=== PATIENT | female | born 1935 | race Caucasian/White ===

== ENCOUNTER → 2018-09-22 08:48 | Outpatient (BNVA) | payer MEDICARE, SELFPAY | PROVIDERS: PCP Family Medicine; Referring Provider Family Medicine; Visit Provider Student in an Organized Health Care Education/Training Program | DX: Z47.1 Aftercare following joint replacement surgery (principal); Z96.651 Presence of right artificial knee joint; Z96.652 Presence of left artificial knee joint | CPT/HCPCS: 99213 ==

== ENCOUNTER 2018-10-18 00:32 | Outpatient (CLI) | payer MEDICARE, SELFPAY ==
--- NOTE | 2018-10-18 06:56 | DI.US_ITS ---
SYMPTOM/DIAGNOSIS: NAUSEA R11.0 ABDOMINAL ULTRASOUND: 10/18 The visualized liver parenchyma is normal in appearance. There is no evidence of cholelithiasis or biliary dilatation. The pancreas appears intact as visualized. The kidneys are unremarkable with no evidence of hydronephrosis or nephrolithiasis. Abdominal aorta and IVC are of normal diameter. Note is made of question of mild splenomegaly, splenic length is about 14 cm. CONCLUSION: Question mild splenomegaly. No evidence of cholelithiasis.
--- NOTE | 2018-10-18 08:43 | DI.RAD_ITS ---
SYMPTOM/DIAGNOSIS: DYSPEPSIA, R10.13, EPIGASTRIC PAIN BARIUM SWALLOW : 10/18 Preliminary films of the chest and neck are unremarkable. Barium was ingested and showed grossly normal hypopharyngeal motility and there is normal mucosal appearance of the esophagus with a few tertiary contractions of the esophagus. There is small sliding axial hiatus hernia and minimal gastroesophageal reflux is present. The visualized portions of the stomach and duodenum are unremarkable. CONCLUSION: Tertiary contractions of the esophagus, mild reflux is also noted.
[2018-10-18] MEDS: Barium Sulfate 60% W/V 355 ML BTL PO (08:44)
== END 2018-10-18 00:52 ==
PROVIDERS: PCP Family Medicine; Visit Provider Family Medicine
DX: R11.0 Nausea (principal); R10.13 Epigastric pain
CPT/HCPCS: 74220; 76700

== ENCOUNTER 2020-01-20 01:03 | Outpatient (CLI) | payer MEDICARE, SELFPAY ==
[2020-01-24 15:21] LABS: Patient Race White; SARS-CoV-2 RNA Undetected (Undetected); SARS-CoV-2 Specimen Source Nasal
== END 2020-01-20 01:23 ==
PROVIDERS: PCP Family Medicine; Visit Provider Family Medicine
DX: Z20.828 Contact with and (suspected) exposure to other viral communicable diseases (principal); Z11.59 Encounter for screening for other viral diseases
CPT/HCPCS: U0003

== ENCOUNTER 2022-10-27 10:28 | Emergency (ER) | payer MEDICARE, SELFPAY ==
[2022-10-27] VITALS (11 sets, daily range): BP systolic 177; BP diastolic 80; PULSE 68–93; RESP 10–99; TEMP 36.6; O2SAT 99
--- NOTE | 2022-10-27 10:15 | DI.CT_ITS ---
Exam(s) CT HEAD WO EXAM: CT HEAD WO CLINICAL HISTORY: Fall forehead laceration left. TECHNIQUE: Imaging Protocol: Axial computed tomography images with coronal and sagittal reformatted images were created and reviewed COMPARISON: No exams were available for comparison FINDINGS: Ventricles and Extra axial spaces: Normal in size and morphology for the patient's age. Hemorrhage: Please see below under cerebral parenchyma. Cerebral parenchyma: No acute territorial infarct. There is a 3 mm focus of hyperdensity in the left cerebellum. (Series 2, image 9). Also there is a question of a curvilinear thin 4 mm area of hyper density in the left frontal lobe. (Series 2, image 31). These may represent areas of hemorrhage. There are areas of decreased attenuation in the white matter most consistent with small vessel ischem ic disease. Midline shift: None. Brainstem/Cerebellum: Normal. Calvarium: Normal. No evidence of a skull fracture. Visualized Paranasal sinuses/Mastoids: Clear. Soft Tissues: There is a soft tissue laceration and swelling overlying the left frontal bone. No rad iopaque foreign bodies are seen in the soft tissues. IMPRESSION: 1. Two foci of hyperdensity, 1 in the left cerebellum and 1 in the left frontal lobe as described abo ve. These might reflect tiny intraparenchymal hemorrhages. 2. Soft tissue laceration and swelling over the left frontal bone. No radiopaque foreign bodies are identified. 3. No evidence of a skull fracture. 4. Findings were discussed with Suzanne Ackerman at 11:50 a.m. on 10/27/2022. RADIATION DOSE DELIVERED: 662.77mGy.cm Total DLP DATA REPOSITORY: All CT scans at this facility are submitted to the National Radiology Data Registry (NRDR) Dose Index Registry (DIR) with the [employer] (ACR). RADIATION OPTIMIZATION: All CT scans at this facility use at least one of these dose optimization te chniques: automated exposure control; mA and/or kV adjustment per patient size (includes targeted exa ms where dose is matched to clinical indication); or iterative reconstruction.
--- NOTE | 2022-10-27 10:15 | DI.RAD_ITS ---
Exam(s) XR WRIST LT COMPLETE EXAM: XR WRIST LT COMPLETE CLINICAL HISTORY: Left wrist pain status post fall. TECHNIQUE: 2D digital imaging was performed of the left wrist. Three images were obtained. PA, obl ique and lateral views were obtained. COMPARISON: No exams were available for comparison FINDINGS: BONES: There is an acute fracture of the ulnar styloid process with marked displacement of the small fracture fragment. There is a comminuted intra-articular fracture of the distal radius. There is im paction of the fracture. The bones are osteopenic. JOINTS: The carpal bones are normally aligned. There are degenerative changes seen in the wrist parti cularly at the 1st carpometacarpal joint characterized by joint space narrowing and osteophytes. 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 There is soft tissue swelling of t he wrist. IMPRESSION: 1. Displaced ulnar styloid process fracture. 2. Comminuted impacted intra-articular fracture of the distal radius as described. DATA REPOSITORY: RADIATION DOSE DELIVERED:
--- NOTE | 2022-10-27 10:28 | W.ED.GENAD ---
Discharge Plan Disposition Patient Disposition: Transfer-Acute Inpatient Care Specific Acute Inpt Facility: [facility] Discharge Details Clinical Impression: Immunization, tetanus-diphtheria, History of falling, Traumatic closed displaced fracture of distal end of left radius, Fracture of ulnar styloid, Traumatic intraparenchymal hemorrhage, Normocytic anemia, Hyponatremia Primary Care Provider: Falguni Juarez ED Provider: Quirino Velasquez Home Meds and New Rx's Prescriptions: No Action Centrum Silver 0.4-300-250 mg-mcg-mcg tablet 1 tab PO DAILY PreserVision AREDS 14,320-226-200 kkfs-zk-mqlx capsule 1 cap PO BID cetirizine-pseudoephedrine [Zyrtec-D] 5-120 mg tablet extended release 12 hr 1 tab PO DAILY PRN naproxen sodium [Aleve] 220 MG tablet 2 tab PO DAILY Qty: 60 3RF Discharge Data Discharge Date/Time-TO BE ENTERED AT DEPARTURE: 10/27/22 13:49 Medical Decision Making This is an overall well-appearing normothermic and not tachycardic dsphi-tfdc-qrrgrcfk 87-year-old female with left wrist deformity concerning for fracture and head trauma concerning for intracranial hemorrhage. No neck pain nor tenderness so will defer CT cervical spine at this point time. No back tenderness so will defer cross-sectional imaging of back. No preceding chest pain to suggest PE. No shortness of breath to suggest ACS. No tongue biting to suggest seizures. Patient is neurologically intact so doubt CVA and do not feel the patient is a tPA candidate nor does she require an MRI. No fevers to suggest meningitis. Soft nontender abdomen so I am not concerned for intra-abdominal infection. No dysuria no frequency to suggest UTI. No cough to suggest pneumonia. No pain out of proportion to suggest necrotizing soft tissue infection. Will reassess following plain films and CT head. 11:[address] head patient was found to have 2 foci of hyperdensity concerning for traumatic intraparenchymal hemorrhage for which I will call the transfer center at [facility]. We will treat with 1 g of levetiracetam and 1 g of tranexamic acid. We will check basic labs and provide a 500 cc crystalloid bolus. Prior to CT results she had received 1 g of acetaminophen and 5 mg of oxycodone. We will keep patient n.p.o. She does have a left distal radius fracture and an ulnar styloid fracture. I spoke with Dr. Cantu who advised hematoma block and splinting. I completed hematoma block under real-time ultrasound guidance. We will hang patient in finger traps prior to applying splint with sugar tong splint. Normocytic anemia similar to prior. No thrombocytopenia. No leukocytosis. BMP with mild new hyponatremia. No FLOYD. Mild anion gap acidosis. Normal glucose not consistent with DKA. 1 PM Repeat secondary survey with no additional injuries. We will send patient via basic crew to [facility] as a trauma alert. Tetanus updated in the ED. Transferred via a basic crew to expedite transfer. HPI General Date/Time Provider Initiated Documentation: 10/27/22 10:35. HPI Narrative: This is a kohik-perc-czjtdvun 87-year-old female arriving via paramedics following a fall. Patient reports tripping on the sidewalk. She broke her fall with her left wrist. She sustained a laceration to her forehead. She did not lose consciousness. She does not have any neck pain. She denies any preceding fevers chest pain shortness of breath nausea vomiting. She is not anticoagulated. She was in her usual state of health earlier this morning and denies dysuria and frequency. No new recent medications. Related Data Home Medications Medication Instructions Recorded Confirmed naproxen sodium 220 mg tablet 2 tab PO DAILY #60 tabs 11/28/16 10/27/22 (Aleve) cwltntzy-jxz-kbuat acid 0.4 1 tab PO DAILY 11/29/20 10/27/22 mg-lycopene 300 mcg-lutein 250 mcg tablet (Centrum Silver) vitamins A,C,W-igqt-xkbqbm 4,296 1 cap PO BID 11/29/20 10/27/22 mcg-226 mg-90 mg capsule (PreserVision AREDS) cetirizine 5 mg-pseudoephedrine ER 1 tab PO DAILY PRN 12/02/21 10/27/22 120 mg tablet,extended release,12hr (Zyrtec-D) Previous Rx's Medication Instructions Recorded naproxen sodium 220 mg tablet 2 tab PO DAILY #60 tabs 11/28/16 (Aleve) Allergies Allergy/AdvReac Type Severity Reaction Status Date / Time environmental - pine tree AdvReac Uncoded 08/21/23 10:26 General LOUIS: 3 PFS All Active Problems (Updated 09/22/18 @ 17:31 by MARYLOU Turcios) Immunization, tetanus-diphtheria (Acute) History of falling (Acute) Traumatic closed displaced fracture of distal end of left radius (Acute) Fracture of ulnar styloid (Acute) Traumatic intraparenchymal hemorrhage (Acute) Normocytic anemia (Acute) Hyponatremia (Acute) Other hammer toe (acquired) (Acute) Nail dystrophy (Acute) Sensorineural hearing loss (SNHL) of left ear with restricted hearing of right ear (Acute) Mixed conductive and sensorineural hearing loss, unilateral, right ear with restricted hearing on the contralateral side (Acute) Sensorineural hearing loss (SNHL) of both ears (Acute) Hearing loss (Acute) Hyperlipidemia (Acute) Osteopenia (Acute) 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 Cantu Surgical History (Updated 09/22/18 @ 17:31 by MARYLOU Turcios) Extraction of cataract Family History (Updated 10/13/18 @ 10:31 by Jeffrey Almazan) Mother , 98 No problems noted. Father , 85 No problems noted. Sister No problems noted. Brother , 80 Heart disease Maternal Grandfather No problems noted. Paternal Grandfather No problems noted. Maternal Grandmother , CHILDBIRTH at age 40. No problems noted. Paternal Grandmother No problems noted. Brother Torticollis Sister Torticollis Son Hyperlipidemia Son No problems noted. Social History (Updated 11/30/20 @ 14:00 by Yuki Valdes) Smoking/Tobacco Use Status: Never Smoking risk assessment performed?: Yes Alcohol Intake: current Alcohol Intake frequency: holidays/special occasions only Drug use: Never Substance use type: does not use Caregiver/Support person: No Household members: none Housing: condominium Communication Needs: None Do you need help understanding health information?: Never Pets and animals: No Sexually active: No Do you think of yourself as: straight/heterosexual What is your relationship status?: How often do you talk on the phone with friends or family?: three or more times per week How often do you get together with friends or relatives?: three or more times per week How often do you attend roman catholic or anabaptist services?: 4 or more times per year Do you belong to any clubs or organized social groups?: no Panel score (0-1 are the most socially isolated patients): 2 Duration: decline to answer Frequency: decline to answer Yesenia/Mandaen: No preference Special yesenia needs: No Seatbelt use: always Drive intox or ride w/intox medical delivery driver: No Do you feel safe at home: Yes Do you feel safe in your relationship?: Yes Exam Narrative Exam Narrative: General: Well-appearing in no acute distress speaking in complete sentences. Head: Normocephalic, on the left side of the patient's forehead there is a stellate approximately 3 and half centimeter laceration with minor venous oozing. Eye: Extraocular eye movements intact. No conjunctival injection. No scleral icterus. Ear, nose, mouth, throat: Grossly normal inspection. Normal voice, handling secretions normally. Neck: Trachea midline. No midline cervical spinal tenderness. Cardiovascular: Well-perfused distal extremities. Regular rate and rhythm. Chest wall: No chest wall tenderness. Back: No step-offs nor deformities. No midline thoracic nor lumbar spinal tenderness. Respiratory: Nonlabored respiration. Clear lungs bilaterally. Gastrointestinal: Nondistended abdomen. Soft nontender. Musculoskeletal: Left upper extremity with at left wrist. No lacerations. Left hand warm and well perfused. 2+ left radial pulse. Sensation motor function intact in left hand across the radial, median, and ulnar nerve distributions. Skin: Normal for age and race, grossly normal temperature and turgor. No acute rash. Neurologic: Alert and appropriate, no apparent acute deficits. GCS 15. Psychiatric: Mood and manner are appropriate. Grooming and personal hygiene are appropriate. Procedures Orthopedic Splinting/Casting Injury #1: Side: left Upper Extremity Injury Location: wrist Upper Extremity Immobilizer: sugartong splint Additional Comments: After a hematoma block using 1% lidocaine without epinephrine and a Ortho-Glass sugar-tong splint was applied. Before sugar-tong splinting and after hematoma block patient was hung in traction. Given no attempt at reduction will defer repeat drain films as I do not want to hold the patient in the ED.
[2022-10-27] MEDS: Acetaminophen 500 MG TAB 1000 MG PO (10:55)
[2022-10-27] MEDS: Lidocaine/Epinephri/Tetracaine Topical Gel 3 ML TP (11:08)
[2022-10-27] MEDS: oxyCODONE 5 MG TAB PO (11:18)
[2022-10-27] MEDS: levETIRAcetam 1,000 MG in Normal Saline 100 ML 400 MG IVPB (12:23)
[2022-10-27] MEDS: Normal Saline 500 ML IV (12:23)
[2022-10-27 12:34] LABS: Abs Immature Grans 0.02 10^3/uL (0.0-0.06); Absolute Basophil Count 0.03 10^3/uL (0.0-0.2); Absolute Lymphocyte Count 4.29 10^3/uL (1.2-3.4); Absolute Monocyte Count 0.39 10^3/uL (0.1-0.8); Absolute Neutrophil Count 3.82 10^3/uL (1.2-6.7); Basophils % 0.3; Eosinophils % 1.2; HCT 30.1 % (36.0-46.0); HGB 10.2 g/dL (11.2-15.7); Immature Grans % 0.2; Lymphocytes % 49.6; MCH 27.7 pg (27.0-33.0); MCHC 33.9 % (32.0-36.0); MCV 82 fL (80-95); MPV 8.1 fL (8.0-11.0); Monocytes % 4.5; Neutrophils % 44.2; Platelet Count 163 10^3/uL (130-400); RBC 3.68 10^6/uL (3.93-5.22); RDW 13.6 % (11.7-14.6); RDW-SD 40.7 fL; WBC 8.65 10^3/uL (4.4-10.8)
--- NOTE | 2022-10-27 12:44 | DI.RAD_ITS ---
Exam(s) XR PORTABLE CHEST AP EXAM: XR PORTABLE CHEST AP CLINICAL HISTORY: History of falling TECHNIQUE: 2D digital imaging was performed of the chest. One image was obtained. An AP view was ob tained. COMPARISON: CR RF barium swallow from 10/18/2018 FINDINGS: MEDIASTINUM: Normal. HEART: Normal. PULMONARY VASCULATURE: Normal. LUNGS: Increased lung markings are seen in the right base. The lungs are otherwise clear. PLEURAL SPACE: No pleural effusion or pneumothorax. BONE:Within normal limits for the patient's age. OTHER FINDINGS:Normal. IMPRESSION: 1. Small infiltrate in the right lung base. This may represent atelectasis or pneumonia. Please cor relate clinically. 2. No other acute abnormality. DATA REPOSITORY: RADIATION DOSE DELIVERED:
[2022-10-27 12:45] LABS: Anion Gap 8.8 mmol/L (3-11); BUN 21 mg/dL (7-18); CO2 26.2 mmol/L (21.0-32.0); CREATININE 0.7 mg/dL (0.55-1.02); Calcium 9.7 mg/dL (8.5-10.1); Chloride 95 mmol/L (98-107); Estimated GFR 83.65 (mL/min/1.73m2); Glucose 102 mg/dL (74-106); Potassium 4.2 mmol/L (3.5-5.1); Sodium 130 mmol/L (136-145)
[2022-10-27] MEDS: Tranexamic Acid 1,000 MG/10 ML VIAL 1000 MG IVP (12:49)
[2022-10-27] MEDS: ceFAZolin 2 GM/50 ML BAG IVPB (12:49)
== END 2022-10-27 13:49 | disposition short-term general hospital (02) ==
PROVIDERS: Emergency Provider Emergency Medicine; PCP Family Medicine
DX: S01.81XA Laceration without foreign body of other part of head, initial encounter; S52.572A Other intraarticular fracture of lower end of left radius, initial encounter for closed fracture; S52.612A Displaced fracture of left ulna styloid process, initial encounter for closed fracture; E87.1 Hypo-osmolality and hyponatremia; D64.9 Anemia, unspecified; S06.370A Contusion, laceration, and hemorrhage of cerebellum without loss of consciousness, initial encounter; W01.0XXA Fall on same level from slipping, tripping and stumbling without subsequent striking against object, initial encounter
CPT/HCPCS: 29125; 80048; 90471; 96365; 96367; 96375; 99285; 70450; 71045; 73110; 85025; J0690; J1953

== ENCOUNTER 2022-11-05 10:14 | Outpatient (CLI) | payer MEDICARE, SELFPAY ==
--- NOTE | 2022-11-05 09:22 | DI.RAD_ITS ---
Exam(s) XR WRIST LT LIMITED EXAM: XR WRIST LT LIMITED CLINICAL HISTORY: F/U FRACTURE. TECHNIQUE: 2D digital imaging was performed of the left wrist. Two images were obtained. PA and la teral views were obtained. COMPARISON: DX XR WRIST 2 VIEWS LEFT from 10/28/2022 FINDINGS: BONES: There is again seen a mildly displaced ulnar styloid process fracture. There is a comminuted fracture of the distal left radius with intra-articular extension. The fracture is impacted. There does appear to be increased impaction of the fracture compared to the prior examination, however this may be due to patient positioning. No bony destructive lesion is seen. JOINTS: The carpal bones are normally aligned. Degenerative changes are seen in the wrist particularl y at the 1st CMC joint. SOFT TISSUE: Normal. IMPRESSION: Distal left radial and ulnar fractures as described. DATA REPOSITORY: RADIATION DOSE DELIVERED:
== END 2022-11-05 10:15 | disposition home or self-care (01) ==
LOC: DIORS 10:14
PROVIDERS: PCP Family Medicine; Referring Provider Family Medicine; Visit Provider Student in an Organized Health Care Education/Training Program
DX: S52.502A Unspecified fracture of the lower end of left radius, initial encounter for closed fracture (principal); S52.612A Displaced fracture of left ulna styloid process, initial encounter for closed fracture; W19.XXXA Unspecified fall, initial encounter
CPT/HCPCS: 29075; 99204; 99215; 73100

== ENCOUNTER → 2022-11-05 10:54 | Outpatient (CLI) | payer MEDICARE, SELFPAY ==
--- NOTE | 2022-11-05 10:30 | DI.CT_ITS ---
Exam(s) CT UPPER EXTREMITY LT WO EXAM: CT UPPER EXTREMITY LT WO CLINICAL HISTORY: FX EVALUATION, fracture ulnar styloid, S52.502A, S52.613A TECHNIQUE: Imaging Protocol: Axial computed tomography images with coronal and sagittal reformatted images were created and reviewed. CONTRAST MATERIAL: Noncontrast COMPARISON: CR XR WRIST LT LIMITED from 11/05/2022 FINDINGS: Exam is somewhat limited by motion however this mainly in the distal carpal and metacarpal region. Bones: Markedly comminuted intra-articular fracture of the distal radius with significant impaction. Fracture at the ulnar styloid. No carpal fractures are seen. No evidence of dislocation No cellulitic or osteomyelitic changes are identified. Is severe degenerative changes present at the 1st carpal metacarpal joint. No lytic or sclerotic lesions are identified. Soft Tissues: Swelling. Cast in place. IMPRESSION: Severely comminuted, impacted intra-articular fracture of the distal radius. Ulnar styloid fracture. RADIATION DOSE DELIVERED: 192.27mGy.cm Total DLP 192.27mGy.cm Total DLP 192.27mGy.cm Total DLP DATA REPOSITORY: All CT scans at this facility are submitted to the National Radiology Data Registry (NRDR) Dose Index Registry (DIR) with the [employer] (ACR). RADIATION OPTIMIZATION: All CT scans at this facility use at least one of these dose optimization te chniques: automated exposure control; mA and/or kV adjustment per patient size (includes targeted exa ms where dose is matched to clinical indication); or iterative reconstruction.
== END ==
PROVIDERS: PCP Family Medicine; Visit Provider Student in an Organized Health Care Education/Training Program
DX: S52.352A Displaced comminuted fracture of shaft of radius, left arm, initial encounter for closed fracture; X58.XXXA Exposure to other specified factors, initial encounter
CPT/HCPCS: 29075; 99215; 73100; 73200

== ENCOUNTER 2022-11-07 08:50 | Day surgery (SDC) | payer MEDICARE, SELFPAY ==
--- NOTE | 2022-11-07 08:27 | W.ANESPRE ---
General Info Date of Service Date Performed: 11/07/22 Height: 5 ft 2 in Weight: 74.843 kg Body Mass Index (BMI): 30.2 Surgical Procedure: Operation Date: 11/07/22 11:55 Proposed Procedure Side Surgeon p Closed Reduction External Fixation and/or ORIF Left Aston Hunter MD Meds Allergies and Home Medications Allergies Allergy/AdvReac Type Severity Reaction Status Date / Time environmental - pine tree AdvReac Uncoded 11/07/22 09:04 Home Medication Medication Instructions Recorded naproxen sodium 220 mg tablet 2 tab PO DAILY #60 tabs 11/28/16 (Aleve) korxibmt-iqf-iwwrt acid 0.4 1 tab PO DAILY 11/29/20 mg-lycopene 300 mcg-lutein 250 mcg tablet (Centrum Silver) vitamins A,C,Y-nygk-mygyhr 4,296 1 cap PO BID 11/29/20 mcg-226 mg-90 mg capsule (PreserVision AREDS) cetirizine 5 mg-pseudoephedrine ER 1 tab PO DAILY PRN 12/02/21 120 mg tablet,extended release,12hr (Zyrtec-D) Current Visit Medications: Current Medications Generic Name Dose Route Start Last Admin Trade Name Freq PRN Reason Stop Dose Admin Ringer's Solution 1,000 mls @ 30 mls/hr 11/07/22 06:00 IV 12/06/22 23:59 INFUSION STEPHEN Cefazolin Sodium/Dextrose 2 gm in 50 mls @ 100 mls/hr 11/07/22 06:00 Ancef Duplex IVPB 12/06/22 23:59 PREOP STEPHEN IV Miscellaneous Supplies 1 each 11/07/22 06:00 Iv Access IV 12/06/22 23:59 DIRECTED STEPHEN Sodium Chloride 0 ml 11/07/22 06:00 Normal Saline Flush 10 Ml Syr IV 12/06/22 23:59 PRN PRN Sodium Chloride 0 ml 11/07/22 06:00 Normal Saline 10 Ml Vial IJ 12/06/22 23:59 DIRECTED PRN Sterile Water 0 ml 11/07/22 06:00 Water,Injection,Sterile 10 Ml Vial IJ 12/06/22 23:59 DIRECTED PRN PFSH Active Problems Active Problems: Problem Status Onset Code Immunization, tetanus-diphtheria Z23 History of falling Z91.81 Traumatic closed displaced fracture of distal end of left radius ~08/21/23 S52.502A Fracture of ulnar styloid ~10/27/22 S52.613A Traumatic intraparenchymal hemorrhage S06.30AA Normocytic anemia D64.9 Hyponatremia E87.1 Other hammer toe (acquired) M20.40 Nail dystrophy L60.3 Sensorineural hearing loss (SNHL) of left ear with restricted hearing of right ear H90.A22 Mixed conductive and sensorineural hearing loss, unilateral, right ear with restricted hearing on the contralateral side H90.A31 Sensorineural hearing loss (SNHL) of both ears H90.3 Hearing loss H91.90 Hyperlipidemia E78.5 Osteopenia M85.80 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 Z96.651 Surgical History Surgical History Extraction of cataract Tobacco Smoking/Tobacco Use Status: Never Alcohol Alcohol Intake: current Alcohol intake frequency: holidays/special occasions only Alcohol type: wine Substance Use Substance use: Never Substance use type: does not use Vital Signs and Lab Results Vital Signs Most Recent Vital Signs in EMR: Temp Pulse Resp BP Pulse Ox 36.5 C 80 16 142/68 H 98 11/07/22 09:08 11/07/22 09:08 11/07/22 09:08 11/07/22 09:08 11/07/22 09:08 Lab Results Blood Type / Crossmatch: No Data to Display Complete Blood Count: White Blood Count 8.65 10^3/uL (4.4-10.8) 10/27/22 12:10 Red Blood Count 3.68 10^6/uL (3.93-5.22) L 10/27/22 12:10 Hemoglobin 10.2 g/dL (11.2-15.7) L 10/27/22 12:10 Hematocrit 30.1 % (36.0-46.0) L 10/27/22 12:10 Platelet Count 163 10^3/uL (130-400) 10/27/22 12:10 Complete Metabolic Panel: Sodium 130 mmol/L (136-145) L 10/27/22 12:10 Potassium 4.2 mmol/L (3.5-5.1) 10/27/22 12:10 Chloride 95 mmol/L (98-107) L 10/27/22 12:10 Carbon Dioxide 26.2 mmol/L (21.0-32.0) 10/27/22 12:10 BUN 21 mg/dL (7-18) H 10/27/22 12:10 Creatinine 0.7 mg/dL (0.55-1.02) 10/27/22 12:10 Est GFR (CKD-EPI 2020) 83.65 (mL/min/1.73m2) 10/27/22 12:10 Calcium 9.7 mg/dL (8.5-10.1) 10/27/22 12:10 Glucose 102 mg/dL (74-106) 10/27/22 12:10 Liver Function Panel: No Data to Display Coagulation Panel: No Data to Display Cardiac Panel: No Data to Display Arterial Blood Gas: No Data to Display Venous Blood Gas: No Data to Display Pancreas Panel: No Data to Display Thyroid Panel: No Data to Display Infectious Disease: No Data to Display Blood Cultures: No Data to Display Toxicology Panel: No Data to Display Anesthesia Assessment and Plan Anesthesia History Personal History: No History of Anesthesia Complications Family History: No Family History of Anesthesia Complications Exercise Tolerance Exercise Tolerance: Metabolic Equivalents>4 Cardiac & Pulmonary Exam Cardiac Exam: Normal S1/S2 Heart Sounds Pulmonary Exam: Clear Bilateral Breath Sounds Implantable Cardiac Device Does patient have a Pacemaker or an ICD?: No Airway Exam Known Difficult Airway: No Mallampati Class: 3 Mouth Opening: Normal (> 3cm) Thyromental Distance: Greater than 3 cm Neck Range of Motion: Limited ROM Neck Circumference: Normal Teeth Condition: Normal Dentition ASA Classification ASA Score: ASA 2 Emergency Case?: No NPO Status NPO Status: NPO Clears >2 hours, Solids >8 hours Anesthesia Plan Resuscitation Status: Full Code Anesthesia Technique: Primary Nerve Block Airway Planned: Natural Airway Monitors Used: Standard Monitors Preoperative Comments:: 87 yo female with wrist fracture for fixation. fracture was sustained during a recent fall with head strike. CT scan with possible punctate traumatic IPH. She had no neuro changes and no LOC. She has a f/u CT and neuro visit in a month. Sig PMHx: never smoker, occ EtOH. denies any major health issues, takes no rx meds, has goo functional capacity. Previous Anes: - Cataract x 2, mko, - TKA x 2, midaz/fent, spinal, prop sedation (10/) Discussed plane as nerve block primary with prop/dexmed sedation and GA back up. Discussed risks (but not limited to) block failure and having to go GA, nerve injury (1:5000), infection. Agrees to proceed.
[2022-11-07 08:32] VITALS: BMI 30.2
[2022-11-07 09:08] VITALS: BP 142/68; PULSE 80; RESP 16; TEMP 36.5; O2SAT 98
[2022-11-07] MEDS: Lactated Ringers 1,000 ML 30 ML IV (09:33)
--- NOTE | 2022-11-07 09:45 | DI.RAD_ITS ---
Exam(s) XR WRIST LT LIMITED EXAM: XR WRIST LT LIMITED CLINICAL HISTORY: LEFT WRIST FRACTURE TECHNIQUE: 2D and realtime digital imaging was performed. CONTRAST MATERIAL: Refer to procedure report. COMPARISON: CR XR WRIST LT LIMITED from 11/05/2022 FINDINGS: Fluoroscopy was provided for Dr. Hunter during the external fixation of the left wrist fracture. Ple ase refer to the procedure report for complete details. Ka,r=0.34 mGy IMPRESSION: RADIATION DOSE DELIVERED:
[2022-11-07 10:08] VITALS: BP 177/63; PULSE 79; RESP 16; TEMP 36.4; O2SAT 97
[2022-11-07 10:28] VITALS: BP 157/67; PULSE 86; RESP 16; TEMP 36.7; O2SAT 96
--- NOTE | 2022-11-07 10:52 | W.ANESNERVE ---
Nerve Block Single Injection Procedure Date and Time Date Performed: 11/07/22 Procedure Start: 10:20 Location Where Procedure Performed Procedure Location: Day Surgery Unit Reason Performed: Other (currently uncomfortable, block for pain control and ideally primary anesthetic. ) Requesting Provider: Aston Hunter Timeout Performed Timeout Performed: Yes Monitoring Used ECG, Blood Pressure, SpO2 and ETCO2 Sterility Sterility: Hand Hygiene, Surgical Cap, Surgical Mask, Sterile Gloves and Chlorhexidine Sedation Given During Procedure Sedation Given (Indicate Dose Given): No Sedation given Patient Mental Status Patient Mental Status: Awake Nerve Block 1st Nerve Block: Laterality: Left Block Type: Axillary Ultrasound Image Saved?: Yes Needle / Catheter Used: 100mm SonoPlex II Local Anesthetic Bolus (Indicate Dose Given): Lidocaine used for local infiltration of skin and Bupivacaine 0.5% Dose:: 17 mL Additives (Indicate Dose Given): Epinephrine to make 1:400,000 (2.5mcg/ml) Dose:: 40 mcg and Precedex Dose:: 25 mcg Ultrasound: Sterile probe cover and gel used Nerve Stimulator: Supplement to Ultrasound use, No twitch or parasthesia noted < 0.5 mA and Other (occasional twitch, needle redirected with immediate change. ) Paresthesia: None Procedure Tolerated: No Complications Procedure Outcome: Successful Performed By: Rob Padilla
[2022-11-07] MEDS: ceFAZolin 2 GM/50 ML BAG IVPB (11:01)
--- NOTE | 2022-11-07 11:06 | PDOC.HHF2F_ITS ---
Home Health Referral <Aston Hunter MD - Last Filed: 11/07/22 14:30> Registered Nurse: Check all that apply Instruct on new or changed medication(s)/assess compliance: Ordered Assess for exacerbation of medical condition, instruct patient/caregivers on signs and symptoms to report for early detection: Ordered Assess wound for signs and symptoms of infection, instruct on wound care and/or provide skilled wound care consisting of: dressing change and check for signs of infection around pins of external fixator Motor Power Connector: Assist with community resources: Ordered Assist with fpc care planning: Ordered Other: assistance with meals and household tasks Precautions List Precautions: Non-weightbearing Left wrist. Light/ gentle use Left hand and finger OK. Keep Ex Fix clean and dry at all times. Encounter Date and Reason: I certify that a FTF encounter for this patient was performed on November 07, 2022 and that such encounter was related to the primary reason the patient requires home health services. The encounter was conducted in the following manner: * By me as the certifying physician, PUMP STATION OPERATOR, PA or * By an inpatient physician, PUMP STATION OPERATOR or PA during an inpatient stay who communicated findings to me, Certification And Authentication I certify that I composed the above information based on my clinical judgment relating to this patient's medical condition and, if applicable, clinical findings communicated to me by the NPP or inpatient physician who performed the FTF encounter. <MARYLOU Salinas - Last Filed: 11/07/22 14:12> Home Health Orders Clinical synopsis of why skilled professionals are needed: 87 year old female s/p left wrist closed reduction and external fixation on 11/07/22 Medical diagnosis necessitation home health referral: Left distal radius fracture Registered Nurse: Check all that apply Assess wound for signs and symptoms of infection, instruct on wound care and/or provide skilled wound care consisting of: check for signs of infection around pins of external fixator Motor Power Connector: Other: assistance with meals Precautions List Precautions: Non-weightbearing on left upper extremity. Keep dressings clean and dry. Home Bound Status Assistance of another person (Describe assistance and medical necessity): assistance with ADLs after left wrist surgery Describe why leaving home would require a considerable and taxing effort: Other (Patient lives alone and is unable to drive following left wrist surgery) Certification And Authentication Name of Provider that will be monitoring home health services: Aston Hunter
--- NOTE | 2022-11-07 11:06 | W.PM.DSUDISC ---
Date of service: 11/07/22 Time of Service: 15:00 Discharge Plan Disposition Patient Disposition: Home Condition: Stable Discharge Details Attending Provider: Aston Hunter Primary Care Provider: Falguni Juarez Home Meds and New Rx's Prescriptions: New tramadol 50 mg tablet 50 mg PO Q8H PRN (Reason: severe pain) Qty: 9 0RF Continued Centrum Silver 0.4-300-250 mg-mcg-mcg tablet 1 tab PO DAILY PreserVision AREDS 14,320-226-200 cmpu-ok-ggtc capsule 1 cap PO BID cetirizine-pseudoephedrine [Zyrtec-D] 5-120 mg tablet extended release 12 hr 1 tab PO DAILY PRN naproxen sodium [Aleve] 220 MG tablet 2 tab PO DAILY Qty: 60 3RF Discharge Instructions Additional Instructions: Surgery: Left distal radius closed reduction and external fixation Activity: Gentle/ light use of the left hand and fingers. You may use the sling for support or elevate wrist on pillows. Prescriptions: Tramadol 50 mg take 1 every 8 hours as needed for severe pain Continue using home naproxen (Aleve). You may use zxqm-elj-xmfuhjz Tylenol (acetaminophen) as needed for mild pain. These pain medications may be taken all at once or in different combinations as needed. Dressings: Leave dressing in place. Keep clean and dry at all times. No showers please. Home visiting nurse will do dressing change. Follow-up: 10-[address] Hunter You may take off the leg compression stockings this evening at home. You may also leave them on a few days longer if you have a history of leg swelling or edema. Please call the office during business hours with any questions or concerns. Let us know right away if you develop any redness, drainage, fevers, chest pain, or trouble breathing. Do not drink alcohol or drive for at least 24 hours after anesthesia. Stand Alone Forms: Anesthesia Discharge Inst., Hernán.Nerve Block Instructions, Reinaldo Simons (DSU) Equipment/Supplies: Sling Discharge Orders Discharge Orders: Discharge Order (Routine); Ordered 11/07/22 Ordered By: Eboni Samuel DS: Diagnosis Discharge Diagnosis (1) Traumatic closed displaced fracture of distal end of left radius: Status: Acute
--- NOTE | 2022-11-07 11:07 | ROE_ITS ---
Date of service: 11/07/22 Time of Service: 11:30 Operative Note Operative Note DATE OF PROCEDURE: 11/07/22 PRE-OP DIAGNOSIS: Displaced, intra-articular and comminuted Left distal radius fracture POST-OP DIAGNOSIS: same PROCEDURE: 1. Left distal radius closed reduction and external fixation, CPT #01636 2. Cast removal, CPT 93986 SURGEON: Aston Hunter AUTOMATIC SPINNING LATHE OPERATOR: Eboni Samuel ANESTHESIA TYPE: Local By Surgeon, MAC and Primary Nerve Block Refer to Anesthesia Record ESTIMATED BLOOD LOSS: 5 COMPLICATIONS: None Patient was transported to: PACU Patient's condition: stable Implants: Synthes Low-Profile Wrist Fixator Indications: Please see complete medical record for details. Procedure Description: In the operating room, appropriate regional anesthesia was confirmed. The patient was positioned supine on the operating room table. All bony prominences were well-padded. The correct patient, procedure, and side of the procedure were all verified prior to beginning. The fiberglass short arm cast was removed safely with a cast saw without issue. Preoperative antibiotics were administered. The left wrist was prepped and draped in the usual sterile fashion. The index metacarpal and radial shaft were palpated for appropriate bony l andmarks and preinjected about the sites of planned incision and external fixation accounting for the pin spread. A small open incision was made through the skin for the radial shaft approach confirming appropriate about 45 degree radial approach to the radial shaft between the EDC and ECRB/ECRL tendons. The drill guide was used to confirm appropriate visualization of bone with soft tissue and tendons out of the way. The 2 mm drill was used to predrilled bicortically followed by placement on power and then completed on hand of the 4.0 mm Schanz pins. Fluoroscopy was used to confirm appropriate placement engaging threads in the far cortex given the osteoporotic bone. Similarly, the index metacarpal was approached with a small open incision, the emergency veterinary assistant maintained the MCP joint in 90 degrees of flexion and the bone was readily exposed at about the 45 degree plane from coronal without any extensor tendon or sensory nerves in the field. The 2 mm drill was used through the parallel guide again bicortically followed by placement of the remaining 4.0 mm Schanz pins on power and then in hand engaging the tips in the far cortex. All pins had good bone purchase. The clamps were then positioned on the pins directing the bar away from the thumb and appropriately positioned above the skin. The clamps were tightened to the pins. Gross traction and general reduction was done and t he adjustments were visually tightened. C-arm fluoroscopy and additional corrective radial to ulnar force combined with pronation were used to achieve good reduction. Additional direct manual pressure and squeezing about the wrist especially volar from anterior posterior was used to bring together the comminuted especially volar fragments. Ligament tension was checked and then slightly increased after allowing for period of rest. Final fluoroscopic images confirmed good reduction. The foramen construct was stable and everything was final tightened. Between the pins 3-0 Monocryl was used to close subcutaneous tissue followed by 3-0 nylon horizontal mattress to close the skin. The pin sites were then wrapped with Xeroform, gauze, and padded with Curlex. The patient awoke from monitored anesthesia care and tolerated the procedure without complication and was transferred to the recovery room in a stable condition.
[2022-11-07] MEDS: Bupivacaine 0.25% Pres-Free 30 ML VIAL (11:46)
[2022-11-07] MEDS: EPINEPHrine 30 MG/30 ML VIAL (11:46)
[2022-11-07 12:40] VITALS: BP 135/77; PULSE 77; RESP 17; TEMP 36.3; O2SAT 97
[2022-11-07 13:10] VITALS: BP 149/68; PULSE 74; RESP 17; TEMP 36.5; O2SAT 97
--- NOTE | 2022-11-07 13:15 | W.ANESPOSTOP ---
Postoperative Evaluation Date, Time and Location Date Performed: 11/07/22 Time Performed: 13:15 Patient Location: Day Surgery Unit Vital Signs Most Recent Imported Vital Signs: Most Recent Vital Signs Temp Pulse Resp BP Pulse Ox 36.3 C L 77 17 135/77 97 11/07/22 12:40 11/07/22 12:40 11/07/22 12:40 11/07/22 12:40 11/07/22 12:40 Pain Score Most Recent Pain Score: Most Recent Pain Score Pain Level 0 11/07/22 12:40 Assessment Mental Status: Awake (Alert & Oriented to Patient Baseline) Airway and Respiratory Function: Patent airway with normal (patient baseline) respiratory exam Cardiovascular Function: Hemodynamically Stable Hydration Status: Adequately Hydrated Nausea & Vomiting: No Nausea or Vomiting Pain: Pt. Denies Any Pain Peripheral Nerve Block: Regional nerve block not resolved at time of post operative discharge
== END 2022-11-07 16:00 | disposition home or self-care (01) ==
PROVIDERS: PCP Family Medicine; Visit Provider Student in an Organized Health Care Education/Training Program
PROC: (CPT 25605; principal; 2022-11-07 11:45)
DX: S52.572A Other intraarticular fracture of lower end of left radius, initial encounter for closed fracture (principal); S52.612A Displaced fracture of left ulna styloid process, initial encounter for closed fracture; M81.0 Age-related osteoporosis without current pathological fracture; E78.5 Hyperlipidemia, unspecified; R29.6 Repeated falls; Z96.653 Presence of artificial knee joint, bilateral; D64.9 Anemia, unspecified; W19.XXXA Unspecified fall, initial encounter
CPT/HCPCS: 25605; 20690; 76942; 73100; J0171; J0690; J1100; J2405

== ENCOUNTER 2022-11-19 10:17 | Outpatient (CLI) | payer MEDICARE, SELFPAY ==
--- NOTE | 2022-11-19 10:00 | DI.RAD_ITS ---
Exam(s) XR WRIST LT LIMITED EXAM: XR WRIST LT LIMITED CLINICAL HISTORY: LEFT WRIST F/U. TECHNIQUE: 2D digital imaging was performed. COMPARISON: CR XR WRIST LT LIMITED from 11/05/2022 FINDINGS: Two views. There has been placement of internal external fixation device anchored proximally in the distal half of the femur and distally in the 2nd metacarpal bone. There is improved alignment at the distal radius fracture site. Ulnar styloid fracture at the base a gain noted. Advanced degenerative changes at the 1st carpometacarpal joint again noted. IMPRESSION: As above. DATA REPOSITORY: RADIATION DOSE DELIVERED:
== END 2022-11-19 10:18 | disposition home or self-care (01) ==
LOC: DIORS 10:17
PROVIDERS: PCP Family Medicine; Referring Provider Family Medicine; Visit Provider Student in an Organized Health Care Education/Training Program
DX: S52.352D Displaced comminuted fracture of shaft of radius, left arm, subsequent encounter for closed fracture with routine healing (principal); S52.612D Displaced fracture of left ulna styloid process, subsequent encounter for closed fracture with routine healing; X58.XXXD Exposure to other specified factors, subsequent encounter
CPT/HCPCS: 99214; 73100

== ENCOUNTER 2022-12-05 08:36 | Day surgery (SDC) | payer MEDICARE, SELFPAY ==
--- NOTE | 2022-12-04 18:32 | ANES.PREOP_ITS ---
General Info Date of Service Date Performed: 12/05/22 Height: 5 ft 2 in Weight: 70.307 kg Body Mass Index (BMI): 28.3 Surgical Procedure: Operation Date: 12/05/22 11:10 Proposed Procedure Side Surgeon p Wrist Removal of External Fixator & Casting VS Splinting Right Aston Hunter MD Meds Allergies and Home Medications Allergies Allergy/AdvReac Type Severity Reaction Status Date / Time environmental - pine tree AdvReac Uncoded 12/05/22 08:46 Home Medication Medication Instructions Recorded naproxen sodium 220 mg tablet 2 tab PO DAILY #60 tabs 11/28/16 (Aleve) mcvadufw-bcf-iaiax acid 0.4 1 tab PO DAILY 11/29/20 mg-lycopene 300 mcg-lutein 250 mcg tablet (Centrum Silver) vitamins A,C,U-qkan-wxpxnk 4,296 1 cap PO BID 11/29/20 mcg-226 mg-90 mg capsule (PreserVision AREDS) cetirizine 5 mg-pseudoephedrine ER 1 tab PO DAILY PRN 12/02/21 120 mg tablet,extended release,12hr (Zyrtec-D) tramadol 50 mg tablet 50 mg PO Q8H PRN severe pain #9 11/07/22 tabs Current Visit Medications: Current Medications Generic Name Dose Route Start Last Admin Trade Name Pratikq PRN Reason Stop Dose Admin Ringer's Solution 1,000 mls @ 30 mls/hr 12/05/22 06:00 IV 12/05/22 23:59 INFUSION STEPHEN Cefazolin Sodium/Dextrose 2 gm in 50 mls @ 100 mls/hr 12/05/22 06:00 Ancef Duplex IVPB 12/05/22 23:59 PREOP STEPHEN IV Miscellaneous Supplies 1 each 12/05/22 06:00 Iv Access IV 12/05/22 23:59 DIRECTED STEPHEN Sodium Chloride 0 ml 12/05/22 06:00 Normal Saline Flush 10 Ml Syr IV 12/05/22 23:59 PRN PRN Sodium Chloride 0 ml 12/05/22 06:00 Normal Saline 10 Ml Vial IJ 12/05/22 23:59 DIRECTED PRN Sterile Water 0 ml 12/05/22 06:00 Water,Injection,Sterile 10 Ml Vial IJ 12/05/22 23:59 DIRECTED PRN PFSH Active Problems Active Problems: Problem Status Onset Code Other hammer toe (acquired) M20.40 Nail dystrophy L60.3 Sensorineural hearing loss (SNHL) of left ear with restricted hearing of right ear H90.A22 Mixed conductive and sensorineural hearing loss, unilateral, right ear with restricted hearing on the contralateral side H90.A31 Sensorineural hearing loss (SNHL) of both ears H90.3 Hearing loss H91.90 Hyperlipidemia E78.5 Osteopenia M85.80 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 Z96.651 Medical History Medical History Comments:: [facility] Surgical History Surgical History (Updated 12/05/22 @ 08:46 by Jm Vilchis) Extraction of cataract Hx of tonsillectomy Tobacco Smoking/Tobacco Use Status: Never Alcohol Alcohol Intake: current Alcohol intake frequency: holidays/special occasions only Alcohol type: wine Substance Use Substance use: Never Substance use type: does not use Vital Signs and Lab Results Vital Signs Most Recent Vital Signs in EMR: Temp Pulse Resp BP Pulse Ox 36.6 C 82 16 124/68 100 12/05/22 08:46 12/05/22 08:46 12/05/22 08:46 12/05/22 08:46 12/05/22 08:46 Lab Results Blood Type / Crossmatch: No Data to Display Complete Blood Count: No Data to Display Complete Metabolic Panel: No Data to Display Liver Function Panel: No Data to Display Coagulation Panel: No Data to Display Cardiac Panel: No Data to Display Arterial Blood Gas: No Data to Display Venous Blood Gas: No Data to Display Pancreas Panel: No Data to Display Thyroid Panel: No Data to Display Infectious Disease: No Data to Display Blood Cultures: No Data to Display Toxicology Panel: No Data to Display Anesthesia Assessment and Plan Anesthesia History Personal History: No History of Anesthesia Complications Family History: No Family History of Anesthesia Complications Exercise Tolerance Exercise Tolerance: Metabolic Equivalents>4 Cardiac & Pulmonary Exam Cardiac Exam: Normal S1/S2 Heart Sounds Pulmonary Exam: Clear Bilateral Breath Sounds Implantable Cardiac Device Does patient have a Pacemaker or an ICD?: No Airway Exam Known Difficult Airway: No Mallampati Class: 3 Mouth Opening: Normal (> 3cm) Thyromental Distance: Greater than 3 cm Neck Range of Motion: Limited ROM Neck Circumference: Normal Teeth Condition: Normal Dentition ASA Classification ASA Score: ASA 2 Emergency Case?: No NPO Status NPO Status: NPO Clears >2 hours, Solids >8 hours Anesthesia Plan Resuscitation Status: Full Code Anesthesia Technique: Primary Nerve Block Airway Planned: Natural Airway Pain Management: Surgeon and patient request nerve block Monitors Used: Standard Monitors Preoperative Comments:: 87 yo female with previous wrist fracture with fixation ~2 weeks ago. fracture was sustained during a recent fall with head strike. CT scan at time of fracture with possible punctate traumatic IPH. She had no neuro changes and no LOC. She has a f/u CT and neuro visit upcoming. Sig PMHx: never smoker, occ EtOH. denies any major health issues, takes no rx meds, has good functional capacity. Previous Anes: - ORIF wrist fracture, axillary block (0.5% bup with epi/dexmed 17 mL - did have twitch with nerve stim at 0.5 and needle was redirected), dexmed/light prop sedation, no issues. - Cataract x 2, mko, - TKA x 2, midaz/fent, spinal, prop sedation (10/) Discussed plane as nerve block primary anesthetic with case to then be done as local. discussed in the event of block failure we would give a small amount of sedation (MAC) to supplement if needed. Discussed risks (but not limited to) block failure and having to go [place], nerve injury (1:5000), infection. Agrees to proceed.
--- NOTE | 2022-12-05 08:19 | W.ANESNERVE ---
Nerve Block Single Injection Procedure Date and Time Date Performed: 12/05/22 Procedure Start: 10:50 Location Where Procedure Performed Procedure Location: Day Surgery Unit Reason Performed: Other Requesting Provider: Aston Hunter Timeout Performed Timeout Performed: Yes Monitoring Used ECG, Blood Pressure and SpO2 Sterility Sterility: Hand Hygiene, Surgical Cap, Surgical Mask, Sterile Gloves and Chlorhexidine Sedation Given During Procedure Sedation Given (Indicate Dose Given): No Sedation given Patient Mental Status Patient Mental Status: Awake Nerve Block 1st Nerve Block: Laterality: Left Block Type: Axillary Ultrasound Image Saved?: Yes Needle / Catheter Used: 100mm SonoPlex II Local Anesthetic Bolus (Indicate Dose Given): Lidocaine used for local infiltration of skin and Bupivacaine 0.5% Dose:: 20 mL Additives (Indicate Dose Given): Epinephrine to make 1:400,000 (2.5mcg/ml) Dose:: 50 mcg and Precedex Dose:: 40 mcg Ultrasound: Sterile probe cover and gel used Nerve Stimulator: Supplement to Ultrasound use and No twitch or parasthesia noted < 0.5 mA Paresthesia: None Procedure Tolerated: No Complications Procedure Outcome: Successful Performed By: Rob Padilla
[2022-12-05 08:46] VITALS: BP 124/68; PULSE 82; RESP 16; TEMP 36.6; O2SAT 100
[2022-12-05] MEDS: Lactated Ringers 1,000 ML 30 ML IV (09:14)
[2022-12-05 10:41] VITALS: BMI 28.3
--- NOTE | 2022-12-05 10:45 | ROE_ITS ---
Date of service: 12/05/22 Time of Service: 11:00 Operative Note Operative Note DATE OF PROCEDURE: 12/05/22 PRE-OP DIAGNOSIS: Displaced, intra-articular and comminuted Left distal radius fracture POST-OP DIAGNOSIS: same PROCEDURE: 1. Left distal radius removal of external fixator, CPT #33541 2. Manual stress radiography of the wrist joint, CPT #01650 SURGEON: Aston Hunter ANESTHESIA TYPE: Local By Surgeon and Primary Nerve Block Refer to Anesthesia Record ESTIMATED BLOOD LOSS: 1 COMPLICATIONS: None Patient was transported to: PACU Patient's condition: stable Indications: Please see complete medical record for details. Findings: Stable healing wrist fracture Procedure Description: In the operating room, appropriate regional anesthesia was confirmed. The patient was positioned supine on the operating room table. All bony prominences were well-padded. The correct patient, procedure, and side of the procedure were all verified prior to beginning. The external bars of the Synthes Low- Profile Wrist Fixator were removed. Preoperative antibiotics were administered. The left wrist was prepped and draped using Betadine scrub and paint around the 4 remaining pins into bone. 0.25% bupivacaine containing epinephrine was injected about all 4 pin sites. Power drill was attached to each pin and each was readily removed without issue or problem. 3 of the 4 pin sites were pretty much healed and closed. The second the proximal metacarpal pin had a small opening that did not require formal closure. Dry skin and scab tissue was lightly debrided and removed from each pin site. There were no signs of infection or other problem. C arm fluoroscopy was then used to assess wrist joint, which demonstrated good maintenance of reduction and healing without any gross motion or instability under flexion extension radial or ulnar deviation stress Decision was then made to proceed with Velcro wrist bracing instead of casting or splinting. The pin site pairs were covered in Xeroform, 4 x 4 gauze, and Velcro wrist cock up brace fit. Reviewed all instruction with the patient who was awake and tolerated the primary regional and local anesthetic quite well. The patient was transferred back to the day surgery unit in a stable condition.
--- NOTE | 2022-12-05 10:46 | W.PM.DSUDISC ---
Date of service: 12/05/22 Time of Service: 12:00 Discharge Plan Disposition Patient Disposition: Home Condition: Stable Discharge Details Attending Provider: Aston Hunter Primary Care Provider: Falguni Juarez Home Meds and New Rx's Prescriptions: Continued Centrum Silver 0.4-300-250 mg-mcg-mcg tablet 1 tab PO DAILY PreserVision AREDS 14,320-226-200 btah-vz-vxjy capsule 1 cap PO BID cetirizine-pseudoephedrine [Zyrtec-D] 5-120 mg tablet extended release 12 hr 1 tab PO DAILY PRN tramadol 50 mg tablet 50 mg PO Q8H PRN (Reason: severe pain) Qty: 9 0RF naproxen sodium [Aleve] 220 MG tablet 2 tab PO DAILY Qty: 60 3RF Discharge Instructions Additional Instructions: Surgery: Left wrist removal external fixator Activity: Use Velcro brace as cast for another 2 weeks. May remove while resting to reduce pressure on skin. May use hand and fingers gently for light activities of daily living. Recommend elevation to minimize swelling and discomfort. Encourage increasing range of motion all fingers and thumb to prevent stiffness. Prescriptions: No new You may use pain medication that has already been prescribed or azpp-svy-wwwubht medications as needed Dressings: Leave dressing in place for 3 days. You may loosen/adjust Maurice bandage as needed for comfort. May then remove and leave open to air or cover incisions with Band-Aids. May shower and get wet after 5 days. Follow-up: 10-[address] Hunter You may take off the leg compression stockings this evening at home. You may also leave them on a few days longer if you have a history of leg swelling or edema. Let us know right away if you develop any redness, drainage, fevers, chest pain, or trouble breathing. Do not drink alcohol or drive for at least 24 hours after anesthesia. Please call the office during business hours with any questions or concerns. Stand Alone Forms: Anesthesia Discharge Inst., Hernán.Nerve Block InstructionsReinaldo (DSU) Discharge Orders Discharge Orders: Discharge Order (Routine); Ordered 12/05/22 Ordered By: Aston Hunter DS: Diagnosis Discharge Diagnosis (1) Traumatic closed displaced fracture of distal end of left radius: Status: Inactive
[2022-12-05 10:50] VITALS: BP 149/57; PULSE 78; RESP 21; TEMP 36.7; O2SAT 97
[2022-12-05 10:55] VITALS: BP 144/57; PULSE 78; RESP 19; O2SAT 98
[2022-12-05 10:56] VITALS: BP 144/57; PULSE 77; RESP 21; TEMP 36.6; O2SAT 98
--- NOTE | 2022-12-05 11:00 | DI.RAD_ITS ---
Exam(s) XR WRIST LT LIMITED EXAM: XR WRIST LT LIMITED CLINICAL HISTORY: left displaced ulnar styloid fracture TECHNIQUE: 2D and realtime digital imaging was performed. CONTRAST MATERIAL: Refer to procedure report. COMPARISON: CR XR WRIST LT LIMITED from 12/05/2022 FINDINGS: Fluoroscopy was provided for Dr. Hunter during the evaluation of the distal left radial fracture. P lease refer to the procedure report for complete details. Ka,r=0.12 mGy IMPRESSION: RADIATION DOSE DELIVERED:
[2022-12-05] MEDS: ceFAZolin 2 GM/50 ML BAG IVPB (11:18)
[2022-12-05] MEDS: Bupivacaine 0.25% Pres-Free 30 ML VIAL (11:29)
--- NOTE | 2022-12-05 11:47 | DI.RAD_ITS ---
Exam(s) XR WRIST LT LIMITED EXAM: XR WRIST LT LIMITED CLINICAL HISTORY: left displaced ulnar styloid fracture. TECHNIQUE: 2D digital imaging was performed of the left wrist. Two images were obtained. PA and la teral views were obtained. COMPARISON: CR XR WRIST LT LIMITED from 11/19/2022 FINDINGS: BONES: There is again seen an external fixation device in the wrist. There has been no change in ali gnment of the distal left radial fracture. The ulnar styloid process fracture appears stable. No ne w fracture is seen. No bony destructive lesion is seen. JOINTS: The carpal bones are normally aligned. Degenerative changes are seen in the wrist, particular ly at the 1st CMC joint. SOFT TISSUE: Normal. IMPRESSION: Stable alignment of the distal radial and ulnar fractures. DATA REPOSITORY: RADIATION DOSE DELIVERED:
[2022-12-05 11:51] VITALS: BP 124/58; PULSE 85; RESP 16; TEMP 36.2; O2SAT 95
[2022-12-05 12:22] VITALS: BP 119/54; PULSE 84; RESP 16; TEMP 36; O2SAT 94
--- NOTE | 2022-12-05 13:02 | W.ANESPOSTOP ---
Postoperative Evaluation Date, Time and Location Date Performed: 12/05/22 Time Performed: 12:58 Patient Location: Day Surgery Unit Vital Signs Most Recent Imported Vital Signs: Most Recent Vital Signs Temp Pulse Resp BP Pulse Ox 36.2 C L 85 16 124/58 L 95 12/05/22 11:51 12/05/22 11:51 12/05/22 11:51 12/05/22 11:51 12/05/22 11:51 Pain Score Most Recent Pain Score: Most Recent Pain Score Pain Level 0 12/05/22 11:51 Assessment Mental Status: Awake (Alert & Oriented to Patient Baseline) Airway and Respiratory Function: Patent airway with normal (patient baseline) respiratory exam Cardiovascular Function: Hemodynamically Stable Hydration Status: Adequately Hydrated Nausea & Vomiting: No Nausea or Vomiting Pain: Pt. Denies Any Pain Peripheral Nerve Block: Regional nerve block not resolved at time of post operative discharge
== END 2022-12-05 13:03 | disposition home or self-care (01) ==
PROVIDERS: PCP Family Medicine; Visit Provider Student in an Organized Health Care Education/Training Program
PROC: (CPT 20694; principal; 2022-12-05 11:00)
DX: S52.572D Other intraarticular fracture of lower end of left radius, subsequent encounter for closed fracture with routine healing (principal); X58.XXXD Exposure to other specified factors, subsequent encounter
CPT/HCPCS: 20694; 77071; 76000; 76942; 73100; J0171; J0690; J1100; J2001; J2405

== ENCOUNTER 2022-12-16 10:49 | Outpatient (CLI) | payer MEDICARE, SELFPAY ==
--- NOTE | 2022-12-16 10:39 | DI.RAD_ITS ---
Exam(s) XR WRIST LT LIMITED EXAM: XR WRIST LT LIMITED CLINICAL HISTORY: radius fx f/u. TECHNIQUE: 2D digital imaging was performed of the left wrist. Two images were obtained. PA and la teral views were obtained. COMPARISON: CR XR WRIST LT LIMITED from 12/05/2022 XA XR WRIST LT LIMITED from 12/05/2022 FINDINGS: BONES: There has been no change in alignment of the distal radial fracture compared to the intraopera tive films from 12/05/2022. There is a stippled laced ulnar styloid process fracture. No new fractur e is seen. No bony destructive lesion is seen. Lucencies are seen in the 2nd metacarpal and the radi al shaft from the prior external fixator device. JOINTS: The carpal bones are normally aligned. Degenerative changes are seen at the 1st carpometacarp al joint. SOFT TISSUE: Soft tissue swelling of the wrist. IMPRESSION: Stable alignment of the distal radial and ulnar styloid process fractures. DATA REPOSITORY: RADIATION DOSE DELIVERED:
== END 2022-12-16 10:50 | disposition home or self-care (01) ==
LOC: DIORS 10:50
PROVIDERS: PCP Family Medicine; Referring Provider Family Medicine; Visit Provider Student in an Organized Health Care Education/Training Program
DX: S52.502D Unspecified fracture of the lower end of left radius, subsequent encounter for closed fracture with routine healing; S52.612D Displaced fracture of left ulna styloid process, subsequent encounter for closed fracture with routine healing; X58.XXXD Exposure to other specified factors, subsequent encounter
CPT/HCPCS: 73100

== ENCOUNTER 2022-12-30 15:23 | Outpatient (CLI) | payer MEDICARE, SELFPAY ==
--- NOTE | 2022-12-30 11:31 | DI.RAD_ITS ---
Exam(s) XR WRIST LT LIMITED EXAM: XR WRIST LT LIMITED CLINICAL HISTORY: F/U FRACTURE. TECHNIQUE: 2D digital imaging was performed. Three views. COMPARISON: CR XR WRIST LT LIMITED from 12/16/2022 FINDINGS: There has been no change in the alignment of the comminuted intra-articular fracture of the distal ra dius. Ulnar styloid fracture is unchanged. Degenerative changes noted in the 1st carpometacarpal gee int. No new findings. IMPRESSION: Stable fracture alignment. DATA REPOSITORY: RADIATION DOSE DELIVERED:
== END 2022-12-30 15:24 | disposition home or self-care (01) ==
LOC: DIORS 15:23
PROVIDERS: PCP Family Medicine; Referring Provider Family Medicine; Visit Provider Student in an Organized Health Care Education/Training Program
DX: S52.502D Unspecified fracture of the lower end of left radius, subsequent encounter for closed fracture with routine healing (principal); S52.615D Nondisplaced fracture of left ulna styloid process, subsequent encounter for closed fracture with routine healing; X58.XXXD Exposure to other specified factors, subsequent encounter
CPT/HCPCS: 73100

== ENCOUNTER 2023-01-27 11:35 | Outpatient (CLI) | payer MEDICARE, SELFPAY ==
--- NOTE | 2023-01-27 11:28 | DI.RAD_ITS ---
Exam(s) XR WRIST LT LIMITED EXAM: XR WRIST LT LIMITED CLINICAL HISTORY: LEFT RADIUS FX F/U. TECHNIQUE: 2D digital imaging was performed of the left wrist. Two images were obtained. PA and la teral views were obtained. COMPARISON: CR XR WRIST LT LIMITED from 12/30/2022 FINDINGS: BONES: There has been no change in alignment of the fracture involving the distal left radius and uln ar styloid process. No new fractures identified. No bony destructive lesion is seen. JOINTS: The carpal bones are normally aligned. Degenerative changes are seen in the wrist particularl y at the 1st CMC joint. SOFT TISSUE: There is soft tissue swelling present. IMPRESSION: Stable distal radial and ulnar fractures. DATA REPOSITORY: RADIATION DOSE DELIVERED:
== END 2023-01-27 11:36 | disposition home or self-care (01) ==
LOC: DIORS 11:35
PROVIDERS: PCP Family Medicine; Referring Provider Family Medicine; Visit Provider Student in an Organized Health Care Education/Training Program
DX: S52.502D Unspecified fracture of the lower end of left radius, subsequent encounter for closed fracture with routine healing (principal); S52.612D Displaced fracture of left ulna styloid process, subsequent encounter for closed fracture with routine healing; X58.XXXD Exposure to other specified factors, subsequent encounter
CPT/HCPCS: 73100

== ENCOUNTER 2023-03-24 10:49 | Outpatient (CLI) | payer MEDICARE, SELFPAY ==
--- NOTE | 2023-03-24 09:45 | DI.RAD_ITS ---
Exam(s) XR WRIST LT LIMITED EXAM: XR WRIST LT LIMITED CLINICAL HISTORY: F/U FRACTURE. TECHNIQUE: 2D digital imaging was performed. COMPARISON: CR XR WRIST LT LIMITED from 01/27/2023 FINDINGS: Two views. The previously the scribe fractures of the distal radius and ulna as well as the positive ulnar varia nce appear unchanged. No new additional fractures evident. Scaphoid appears intact. Moderate degen erative change in the 1st carpometacarpal joint evident. IMPRESSION: Stable appearance without significant change compared to 01/27/2023. DATA REPOSITORY: RADIATION DOSE DELIVERED:
== END 2023-03-24 10:50 | disposition home or self-care (01) ==
LOC: DIORS 10:50
PROVIDERS: PCP Family Medicine; Referring Provider Family Medicine; Visit Provider Student in an Organized Health Care Education/Training Program
DX: S52.502D Unspecified fracture of the lower end of left radius, subsequent encounter for closed fracture with routine healing (principal); S52.612D Displaced fracture of left ulna styloid process, subsequent encounter for closed fracture with routine healing; X58.XXXD Exposure to other specified factors, subsequent encounter
CPT/HCPCS: 99213; 73100

== ENCOUNTER 2023-06-23 14:40 | Outpatient (CLI) | payer MEDICARE, SELFPAY ==
--- NOTE | 2023-06-23 09:30 | DI.RAD_ITS ---
Exam(s) XR WRIST LT LIMITED EXAM: XR WRIST LT LIMITED INDICATION: fracture follow up. COMPARISON: CR XR WRIST LT LIMITED from 12/16/2022 CR XR WRIST LT LIMITED from 03/24/2023 TECHNIQUE: 2D digital imaging was performed. Two views. FINDINGS: There has been continued healing at the distal radial fracture. The alignment is unchanged. Moderat e degenerative changes again noted in the 1st carpal metacarpal joint. DATA REPOSITORY: RADIATION DOSE DELIVERED:
== END 2023-06-23 14:41 | disposition home or self-care (01) ==
LOC: DIORS 14:40
PROVIDERS: PCP Family Medicine; Referring Provider Family Medicine; Visit Provider Student in an Organized Health Care Education/Training Program
DX: S52.613D Displaced fracture of unspecified ulna styloid process, subsequent encounter for closed fracture with routine healing (principal); S52.502D Unspecified fracture of the lower end of left radius, subsequent encounter for closed fracture with routine healing; X58.XXXD Exposure to other specified factors, subsequent encounter
CPT/HCPCS: 99213; 73100

== ENCOUNTER 2023-11-25 10:01 | Emergency (ER) | payer MEDICARE, SELFPAY ==
[2023-11-25 10:10] VITALS: BP 153/102; PULSE 71; RESP 16; TEMP 36.9; O2SAT 96
--- NOTE | 2023-11-25 10:21 | ED.GENADUL_ITS ---
Discharge Plan Disposition Patient Disposition: Home Condition: Stable Discharge Details Clinical Impression: Sacro ilial pain Primary Care Provider: Falguni Juarez ED Provider: Alessandro Caballero Home Meds and New Rx's Prescriptions: Continued Centrum Silver 0.4-300-250 mg-mcg-mcg tablet 1 tab PO DAILY PreserVision AREDS 14,320-226-200 djgz-am-xovf capsule 1 cap PO BID cetirizine-pseudoephedrine [Zyrtec-D] 5-120 mg tablet extended release 12 hr 1 tab PO DAILY PRN acetaminophen [Tylenol] 325 mg capsule 325 mg PO ONCE PRN Discharge Instructions Instructions: Sacroiliac Joint Pain ED Additional Instructions: You were seen in the emergency department for your right lower back pain, this is likely sciatica mixed with chronic arthritis of the spine and some sacroiliac pain. You need to be taking regular dose of Tylenol and ibuprofen, you can apply tqpk-yjd-ivwfhax ointment there is a topical anti-inflammatory called topical diclofenac or Voltaren gel to it, obtain cqcm-gpn-knhrgfo topical lidocaine patches and apply to the area of pain each day for 12 hours. I have sent you a referral to physical therapy, these visits will improve your pain through exercises that will help strengthen the muscles and stabilize the sacroiliac joint, please return to the ER for any neurological changes in your lower extremities, urinary retention, bowel incontinence, numbness to the groin. Stand Alone Forms: Physical Therapy Referral Referrals: Alessandro Caballero PA [Emergency Provider] - Discharge Data Discharge Date/Time-TO BE ENTERED AT DEPARTURE: 11/25/23 14:17 HPI General Date/Time Provider Initiated Documentation: 11/25/23 10:11 . HPI Narrative: 88 year-old female presents to ED today by EMS with a chief complaint of R lumbar back pain, radiating to R thigh after moving heavy boxes with onset on Thursday- soreness has set in over the past couple days with some tingling to the R thigh. Quality described as tense, like a severe strain, no radiation to complete numbness, urinary retention, bowel incontinence, inability to ambulate or move the R leg, denies groin numbness- states its been difficult to sit. Severity is described as moderate to severe. Palliating factors include nothing specific. Provoking factors include nothing specific. Patient not anticoagulated. Related Data Home Medications ?Medication ?Instructions ?Recorded ?Confirmed azmfnmpo-wod-xqrsi acid 0.4 1 tab PO DAILY 11/29/20 11/25/23 mg-lycopene 300 mcg-lutein 250 mcg tablet (Centrum Silver) vitamins A,C,H-qyll-xmcvtt 4,296 1 cap PO BID 11/29/20 11/25/23 mcg-226 mg-90 mg capsule (PreserVision AREDS) cetirizine 5 mg-pseudoephedrine ER 1 tab PO DAILY PRN 12/02/21 11/25/23 120 mg tablet,extended release,12hr (Zyrtec-D) acetaminophen 325 mg capsule 325 mg PO ONCE PRN 12/16/22 11/25/23 (Tylenol) Allergies Allergy/AdvReac Type Severity Reaction Status Date / Time environmental - pine tree AdvReac Other (See Uncoded 11/25/23 10:15 Comment) General Stated Complaint: Nk/Back Pain LOUIS: 4 Review of Systems All systems reviewed & are unremarkable except as noted in HPI and below Exam Narrative Exam Narrative: GENERAL APPEARANCE: Frail at baseline, non-toxic, awake and alert, atraumatic, no acute distress. SKIN: Warm, pink, dry, intact, without rashes/lesions/ulcerations. HEAD: Normocephalic, atraumatic, normal hair distribution for gender/age. EYES: Normal conjunctiva, no exudates on lids/lashes. ENT: Nares patent, no circumoral cyanosis, no facial swelling NECK: Supple, trachea midline, painless cervical ROM. LUNGS/CHEST: Non-labored respirations, normal A/P diameter, symmetrical expansion, no chest wall deformity HEART (CV/PV): No peripheral edema, no JVD. ABDOMEN: Soft, non-distended, no guarding. MSK: Normal ROM, no swelling/deformity to bilateral UEs or LEs, moving all extremities without weakness, no cyanosis, spine midline without tenderness, normal curvature. Lumbar back: Mild right sided lumbosacral tenderness without crepitus or skin changes or swelling, able to SLR bilateral lower extremity strength 5/5, circulation and sensation intact, no CVA tenderness bilaterally, no saddle anesthesia NEURO: Mental Status AAOx4 - alert to person, place, time, events No facial droop, no forehead involvement. Motor: No focal weakness - strength 5/5 in bilateral UEs and LEs, proximal and distal, symmetric. Sensory: sensation intact to light touch globally. Gait mildly antalgic w walker PSYCH: euthymic, cooperative, pleasant, appropriate speech Course Vital Signs Vital signs: Vital Signs Temperature 36.9 C 11/25/23 10:10 Pulse 71 11/25/23 10:10 Respiratory Rate 16 11/25/23 10:10 Blood Pressure 153/102 H 11/25/23 10:10 Pulse Oximetry 96 11/25/23 10:10 Temperature 36.9 C 11/25/23 10:10 Pulse 71 11/25/23 10:10 Respiratory Rate 16 11/25/23 10:10 Respiratory Effort Normal 11/25/23 10:14 Blood Pressure 153/102 H 11/25/23 10:10 Pulse Oximetry 96 11/25/23 10:10 Pain Level 10 11/25/23 10:10 Medical Decision Making This dictation utilizes iqckn-sw-lwug dictation software and may contain unedited grammatical errors. 88 year-old female presents to ED today by EMS with a chief complaint of R lumbar back pain, radiating to R thigh after moving heavy boxes with onset on Thursday- soreness has set in over the past couple days with some tingling to the R thigh. Quality described as tense, like a severe strain, no radiation to complete numbness, urinary retention, bowel incontinence, inability to ambulate or move the R leg, denies groin numbness- states its been difficult to sit. Severity is described as moderate to severe. Palliating factors include nothing specific. Provoking factors include nothing specific. Patients' medical history: Bilateral knee replacements. Family and social history: Lives independently. Pertinent exam findings / vital signs include R sacral/lumbar paraspinal tenderness, NV intact bilateral LEs, no midline vertebral tenderness/crepitus/step-offs. Differential / pathologies of concern include compression fracture, muscle strain, SI joint dysfunction, lumbar radiculopathy. Diagnostic studies of: -CT Lumbar Spine wo Contrast - no acute fractures. Interventions of: -PT Consult. ED Course/Assessment/Plan: 88-year-old female presents with low back pain after moving some heavy boxes on Thursday, and is rating down her right leg, she is moderately frail at baseline and is having trouble getting around her house. CT is negative for any fr acture, she has no clinical signs of cauda equina on exam and is neurovascular intact in bilateral lower extremities, I do suspect she has muscle related pain with the mechanism. She was seen by PT, reasonable to discharge with a walker, recommend outpatient PT visits, topical NSAIDs, lidocaine patching, Tylenol, strict return criteria for bowel changes, severe increase in pain, inability use the lower extremities. Findings not consistent with cauda equina, vertebral fracture, neurovascular compromise of lower extremities. Disposition of Sacro ilial pain. Patient verbalized understanding of the plan and return to ED criteria and engaged in shared decision making. Medical Records Medical records reviewed: Yes I reviewed the patient's medical records. Imaging Data Radiologic Study: Attestation: I personally reviewed and interpreted this imaging study as follows: Imaging: CT Scan Radiologist's impression: EXAM: CT LUMBAR SPINE WO CLINICAL HISTORY: R lumbar back pain. TECHNIQUE: Imaging Protocol: Axial computed tomography images with coronal and sagittal reformatted images were created and reviewed COMPARISON: No exams were available for comparison FINDINGS: Bones: There are no fractures, or pars defects. There are no lytic osseous lesions evident. INDIVIDUAL LEVELS: T12-L1:No disc herniation nor canal stenosis. Facet joints unremarkable. No foraminal stenosis. L1-2: No disc herniation nor canal stenosis. Facet joints unremarkable. No foraminal stenosis. L2-3: This level exhibits mild disc space narrowing. There is asymmetric lateral left annular bulging in the floor of the exiting left neural foramen but without significant foraminal stenosis. There is mild central spinal canal stenosis. Mild degenerative changes in the facet joints. L3-4: This level exhibits asymmetric disc space narrowing on the right side with vacuum phenomena within the right side of this disc space also noted. There is annular bulging without a dominant disc herniation. There is moderate central spinal canal stenosis due to annular bulging, short AP dimensions of the pedicles, moderate degenerative change in the facet joints and some ligamentum flavum hypertrophy. There is mild foraminal stenosis on the right side due to the asymmetric disc space narrowing on the right side. Minimal foraminal stenosis noted on the opposite-left side. L4-5: This level exhibits mild disc space narrowing. Very mild degenerative anterolisthesis L4 upon L5 with this related to facet arthropathy.. No pars defects. There is moderate-severe central spinal canal stenosis at this level due to broad annular bulging and short AP dimensions of the pedicles and the advanced facet arthropathy which is more advanced on the left than the right. There is some ligamentum flavum hypertrophy. There is minimal foraminal stenosis. L5-S1: This level exhibits relatively preserved disc space height. Posteriorly there is diffuse relatively symmetrical annular bulging. Central canal dimensions are lower normal. There is mild bilateral foraminal stenosis. Moderate degenerative changes in both facet joints. The visualized sacroiliac joints and sacrum appear unremarkable. PARASPINAL SOFT TISSUES: Visualized paraspinal tissues appear unremarkable. IMPRESSION: 1. Multilevel central spinal canal stenosis most prominent at L4-5 level (moderate-severe), as discussed above. There is very mild anterolisthesis of L4 upon L5 at this level also evident. Slightly milder central canal stenosis noted at L3-4 level and even less so at L2-3 level. 2. The central canal stenosis at these levels this related to annular bulging, short AP dimensions of the pedicles and facet arthrosis as well as some ligamentum flavum hypertrophy. 3. Mild multilevel foraminal stenosis. No severe foraminal stenosis. 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 Cantu Osteopenia (Acute) Hyperlipidemia (Acute) Hearing loss (Acute) Sensorineural hearing loss (SNHL) of both ears (Acute) Mixed conductive and sensorineural hearing loss, unilateral, right ear with restricted hearing on the contralateral side (Acute) Sensorineural hearing loss (SNHL) of left ear with restricted hearing of right ear (Acute) Nail dystrophy (Acute) Other hammer toe (acquired) (Acute) Surgical History (Updated 12/05/22 @ 08:46 by Jm Vilchis) Hx of tonsillectomy Extraction of cataract Family History Mother , 98 No problems noted. Father , 85 No problems noted. Sister No problems noted. Brother , 80 Heart disease Maternal Grandfather No problems noted. Paternal Grandfather No problems noted. Maternal Grandmother , CHILDBIRTH at age 40. No problems noted. Paternal Grandmother No problems noted. Brother Torticollis Sister Torticollis Son Hyperlipidemia Son No problems noted. Social History (Updated 03/18/23 @ 17:26 by Merary Roche) Smoking/Tobacco Use Status: Never Smoking risk assessment performed?: Yes Alcohol Intake: never Drug use: Never Substance use type: does not use Adopted: No Caregiver/Support person: No Foster care: No Household members: none Housing: condominium Number of Children: 2 number of grandchildren: 5 Communication Needs: None Education Level: college Do you need help understanding health information?: Rarely current occupation: Retired Pets and animals: No Sexually active: No Do you think of yourself as: straight/heterosexual Current gender identity: female What is your relationship status?: How often do you talk on the phone with friends or family?: three or more times per week How often do you get together with friends or relatives?: three or more times per week How often do you attend mosque or voodoo services?: 4 or more times per year Do you belong to any clubs or organized social groups?: no Panel score (0-1 are the most socially isolated patients): 2 What type of physical activity do you participate in: none Duration: decline to answer Frequency: does not exercise Yesenia/Catholic: Islam Special yesenia needs: No Agree to transfusion: Yes Seatbelt use: always Drive intox or ride w/intox water tanker driver: No Working smoke detector in home: Yes Carbon monox detector in home: Yes Firearms in home: No Do you feel safe at home: Yes Do you feel safe in your relationship?: Yes Victim of physical abuse: No Victim of emotional abuse: No Victim of sexual abuse: No
--- NOTE | 2023-11-25 11:59 | DI.CT_ITS ---
Exam(s) CT LUMBAR SPINE WO EXAM: CT LUMBAR SPINE WO CLINICAL HISTORY: R lumbar back pain. TECHNIQUE: Imaging Protocol: Axial computed tomography images with coronal and sagittal reformatted images were created and reviewed COMPARISON: No exams were available for comparison FINDINGS: Bones: There are no fractures, or pars defects. There are no lytic osseous lesions evident. INDIVIDUAL LEVELS: T12-L1:No disc herniation nor canal stenosis. Facet joints unremarkable. No foraminal stenosis. L1-2: No disc herniation nor canal stenosis. Facet joints unremarkable. No foraminal stenosis. L2-3: This level exhibits mild disc space narrowing. There is asymmetric lateral left annular bulgi ng in the floor of the exiting left neural foramen but without significant foraminal stenosis. There is mild central spinal canal stenosis. Mild degenerative changes in the facet joints. L3-4: This level exhibits asymmetric disc space narrowing on the right side with vacuum phenomena wi thin the right side of this disc space also noted. There is annular bulging without a dominant disc herniation. There is moderate central spinal canal stenosis due to annular bulging, short AP dimensi ons of the pedicles, moderate degenerative change in the facet joints and some ligamentum flavum hype rtrophy. There is mild foraminal stenosis on the right side due to the asymmetric disc space narrowi ng on the right side. Minimal foraminal stenosis noted on the opposite-left side. L4-5: This level exhibits mild disc space narrowing. Very mild degenerative anterolisthesis L4 upon L5 with this related to facet arthropathy.. No pars defects. There is moderate-severe central spin al canal stenosis at this level due to broad annular bulging and short AP dimensions of the pedicles and the advanced facet arthropathy which is more advanced on the left than the right. There is some ligamentum flavum hypertrophy. There is minimal foraminal stenosis. L5-S1: This level exhibits relatively preserved disc space height. Posteriorly there is diffuse rel atively symmetrical annular bulging. Central canal dimensions are lower normal. There is mild bilat eral foraminal stenosis. Moderate degenerative changes in both facet joints. The visualized sacroiliac joints and sacrum appear unremarkable. PARASPINAL SOFT TISSUES: Visualized paraspinal tissues appear unremarkable. IMPRESSION: 1. Multilevel central spinal canal stenosis most prominent at L4-5 level (moderate-severe), as discus sed above. There is very mild anterolisthesis of L4 upon L5 at this level also evident. Slightly mi lder central canal stenosis noted at L3-4 level and even less so at L2-3 level. 2. The central canal stenosis at these levels this related to annular bulging, short AP dimensions of the pedicles and facet arthrosis as well as some ligamentum flavum hypertrophy. 3. Mild multilevel foraminal stenosis. No severe foraminal stenosis. Called by myself to the ER provider RADIATION DOSE DELIVERED: 642.86mGy.cm Total DLP DATA REPOSITORY: All CT scans at this facility are submitted to the National Radiology Data Registry (NRDR) Dose Index Registry (DIR) with the [employer] ([employer]). RADIATION OPTIMIZATION: All CT scans at this facility use at least one of these dose optimization te chniques: automated exposure control; mA and/or kV adjustment per patient size (includes targeted exa ms where dose is matched to clinical indication); or iterative reconstruction.
[2023-11-25 12:09] VITALS: BP 134/48; PULSE 60; RESP 16; O2SAT 95
[2023-11-25 14:17] VITALS: BP 138/59; PULSE 74; RESP 16; TEMP 36.6; O2SAT 98
--- NOTE | 2023-11-25 14:42 | PT.INIE ---
PT Notes Visit Reasons: [place]/ Back Pain Physical Therapy Initial Evaluation Date: 11-25-2023 Referring Doctor: Alessandro Caballero PT Orders: PT CONSULT: Safety consult for DC Precautions: Activity as tolerated Patient Profile/Admitting Diagnosis: Patient is 88-year-old female presented to the ED 3 days status post lifting boxes resulting in low back pain. Patient reports she has tried using ice and heat and Tylenol with no relief. Imaging in ED demonstrates central spinal stenosis L4-5 moderate to severe, mild anterior low listhesis L4-5, mild central canal stenosis 3-4 due to annular bulging and mild foraminal stenosis at multilevels lumbar spine. 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 Maldonadoory of total left knee replacement (TKR) (Chronic 07/22/16) Dr. Redmondopenia (Acute) Hyperlipidemia (Acute) Hearing loss (Acute) Sensorineural hearing loss (SNHL) of both ears (Acute) Mixed conductive and sensorineural hearing loss, unilateral, right ear with restricted hearing on the contralateral side (Acute) Sensorineural hearing loss (SNHL) of left ear with restricted hearing of right ear (Acute) Nail dystrophy (Acute) Other hammer toe (acquired) (Acute) Surgical History (Updated 12/05/22 @ 08:46 by Jm Vilchis) Hx of tonsillectomy Extraction of cataract Social History/Home Situation: Patient reports she lives alone with stairs to enter patient reports independent ambulation without device, independent ADLs, driving, independent house management including cooking cleaning. She states she is recently been moving boxes lifting and carrying them throughout her home. Equipment Owned/DME: None Subjective: She reports the pain is in her low back. She states she has been using heat and ice and Tylenol with little to no effect. She states despite the pain she has been able to care for herself. Objective: [] General Observation: Alert female sitting at edge of stretcher. Mental Status: Oriented x 4 Pain: 3/10right sided low back ROM: [] Right Upper Extremity: WNL Left Upper Extremity: WNL Right Lower Extremity: WNL Left Lower Extremity: WNL Strength: [] Right Upper Extremity:5/5 Left Upper Extremity: 5/5 Right Lower Extremity: hip flexor 4/5, abduction 3+/5, hip extension 4/5, knee extension 4/5,flexion 3+/5, ankle 4/5 Left Lower Extremity: hip flexor 4/5, abduction 4/5, hip extension 4/5 knee and ankle 5 out of 5 Sensation: Intact Bed Mobility/Transfers: [] Supine to sit independent Sit to stand independent Stand to sit independent Bed to chair independent without device Gait: Ambulate without assistive device 50 feet with antalgic gait right lower extremity excessive lateral weight shifting contact-guard assist. Patient ambulates independent with FWW 150 feet without gait deviations reciprocal pattern Balance: [] Static Sitting: [] Normal Dynamic Sitting: Normal Static Standing: Good Dynamic Standing: Good minus Special Tests: [] Mobility Limitations Standardized Measure [] [facility] 6 clicks Basic Mobility Inpatient Short Form: [] Raw Score: 23 CMS Score: 11.20% disability Informed Consent/Education: Patient instructed in purpose of PT consult and benefits of Outpatient PT to address low back pain. Patient educated on use of heat versus ice for pain management. X 20 minutes with 1 to 2 hours between use Assessment: Patient 80-year-old female sudden onset of pain after lifting boxes imaging noted spinal stenosis and central canal stenosis lumbar spine with mild anterolisthesis L4-L5. Patient able to demonstrate ability to dress self don and doff shoes socks and pants without functional difficulty however reported pain. No facial grimacing noted. Patient agreeable to attend outpatient PT to further address low back Patient presents with clinical signs and symptoms consistent with current/admitting diagnoses that have resulted to mobility limitations, gait instability, generalized weakness, and impairment of motor control as demonstrated by the following impairment level findings: 1. Decreased strength to right lower extremity major muscle groups 2. Impaired standing balance 3. Pain low back Impairments are contributing to the following functional limitations: 1. Inability to safely ambulate without assistive device without gait deviation 2. Increase completion time for mobility ADL performance 3. Increased fall risk Patient is assessed as a moderate complexity based on the following: History: 88-year-old female with impairment level findings, functional limitations, and past medical history as indicated above Examination: Demonstrable impairment in strength, balance, and mobility level with underlying impairments and functional limitations as documented above Presentation: [Stable Decision Making: Moderate Goals: N/A. Plan of Care/Treatment Plan: N/A. DISCHARGE RECOMMENDATIONS: Home with outpatient PT referral TREATMENT CODE/TIME: [id number] Thank you for the opportunity to participate in the care of this patient. Please sign an return this page within 30 days if you agree with the above POC. Thank you! Physician Signature Date [facility]
== END 2023-11-25 14:17 | disposition home or self-care (01) ==
PROVIDERS: Emergency Provider Physician Assistant; PCP Family Medicine
DX: M54.50 Low back pain, unspecified (principal); M53.3 Sacrococcygeal disorders, not elsewhere classified
CPT/HCPCS: 97162; 99284; 72131; 99283

== ENCOUNTER 2023-12-11 14:37 | Emergency (ER) | payer MEDICARE, SELFPAY ==
--- NOTE | 2023-12-11 14:30 | RT.EKG_ITS ---
APPROVED REPORT Exam: Resting ECG Reason for Exam: weakness Patient Location: E HR:87 bpm ECG Measurements Heart Rate 87 AXIS OK 181 P -28 QRSd 82 QRS 65 QT 347 T 88 QTc 418 Conclusion Sinus rhythm 87 normal axis no stemi
[2023-12-11 14:40] VITALS: BP 131/75; PULSE 89; RESP 20; TEMP 36.3; O2SAT 96
--- NOTE | 2023-12-11 14:45 | DI.RAD_ITS ---
Exam(s) XR LUMBAR SPINE AP, LAT EXAM: XR LUMBAR SPINE AP, LAT CLINICAL HISTORY: fall. TECHNIQUE: 2D digital imaging was performed. Five views. COMPARISON: CT CT LUMBAR SPINE WO from 11/25/2023 FINDINGS: The bones are obscured on the AP view by overlying bowel gas. Degenerative disc changes. Mild degenerative scoliosis. Facet degenerative changes also present. IMPRESSION: Degenerative changes. No acute abnormality. DATA REPOSITORY: RADIATION DOSE DELIVERED:
--- NOTE | 2023-12-11 14:45 | DI.CT_ITS ---
Exam(s) CT HEAD CERVICAL SPINE WO EXAM: CT HEAD CERVICAL SPINE WO CLINICAL HISTORY: fall. TECHNIQUE: Imaging Protocol: Axial computed tomography images with coronal and sagittal reformatted images were created and reviewed COMPARISON: CT CT HEAD WO from 10/27/2022 FINDINGS: Head CT Ventricles and Extra axial spaces: Normal in size and morphology for the patient's age. Hemorrhage: None. Cerebral parenchyma: No evidence of mass or acute infarct. Mild atrophy, consistent with the patie nt's age. Mild white matter changes of microvascular disease. Midline shift: None. Brainstem/Cerebellum: Normal. Calvarium: Normal. Visualized Paranasal sinuses/Mastoids: Clear. Soft tissues: Unremarkable. Cervical Spine CT BONES: Vertebral body heights are maintained. Alignment is normal. There is no evidence of acute frac ture. Degenerative disc changes and facet degenerative changes are seen . SOFT TISSUES: No paraspinal hematoma. The airway appears intact. No pneumothorax is seen at the lung apices. IMPRESSION: Head CT: No acute abnormality. C-spine CT: Degenerative changes, no acute abnormality. RADIATION DOSE DELIVERED: 1,180.27mGy.cm Total DLP DATA REPOSITORY: All CT scans at this facility are submitted to the National Radiology Data Registry (NRDR) Dose Index Registry (DIR) with the [employer] (ACR). RADIATION OPTIMIZATION: All CT scans at this facility use at least one of these dose optimization te chniques: automated exposure control; mA and/or kV adjustment per patient size (includes targeted exa ms where dose is matched to clinical indication); or iterative reconstruction.
--- NOTE | 2023-12-11 14:45 | DI.RAD_ITS ---
Exam(s) XR HIP PELVIS ADULT BL EXAM: XR HIP PELVIS ADULT BL CLINICAL HISTORY: fall. TECHNIQUE: 2D digital imaging was performed. Three views. COMPARISON: No exams were available for comparison FINDINGS: BONES: The sacrum is obscured by overlying bowel gas. No acute fracture is present. No bony destruct gabino lesion is seen. JOINTS: No dislocation present. SI joints show mild spurring. Pubic symphysis is intact. SOFT TISSUE: Normal. IMPRESSION: No acute abnormality. DATA REPOSITORY: RADIATION DOSE DELIVERED:
--- NOTE | 2023-12-11 15:00 | ED.GENADUL_ITS ---
Discharge Plan Disposition Patient Disposition: Home Discharge Details Clinical Impression: Fall, Back pain Primary Care Provider: Falguni Juarez ED Provider: Grant Bailey Home Meds and New Rx's Prescriptions: New methocarbamol 500 mg tablet 500 mg PO TID PRNQty: 10 0RF lidocaine [Lidoderm] 5 % adhesive patch,medicated 1 patch topical DAILY Qty: 15 0RF Rx Instructions: leave on most painful area for up to 12 hrs No Action Centrum Silver 0.4-300-250 mg-mcg-mcg tablet 1 tab PO DAILY PreserVision AREDS 14,320-226-200 duzb-ho-rzpp capsule 1 cap PO BID cetirizine-pseudoephedrine [Zyrtec-D] 5-120 mg tablet extended release 12 hr 1 tab PO DAILY PRN acetaminophen [Tylenol] 325 mg capsule 325 mg PO ONCE PRN prednisone 20 mg tablet See Rx Instructions PO DAILY Qty: 11 0RF Rx Instructions: 2 tabs daily for 3 days; 1 tab daily for 3 days; 0.5 tab daily for 4 days Discharge Instructions Instructions: Low Back Pain ED Additional Instructions: * Continue to walk with your walker * You can take Tylenol 500 mg every 4 hours * Additional lidocaine patch and muscle relaxing medicine sent to the pharmacy * Return with weakness, inability to walk, incontinence or other concerns. Otherwise keep follow-up appointments as scheduled next week HPI General Date/Time Provider Initiated Documentation: 12/11/23 14:45 . Limitations to Documentation: no limitations . Information obtained by: patient . HPI Narrative: 88-year-old female with past medical history of knee replacement bilaterally, lumbar spinal stenosis presents for evaluation after a fall at home. She reports that she had been feeling well, took a shower shampooing her hair, entertained her guests. She states that she then took a nap and after waking up from her nap, she needed to go to the bathroom and was walking to the bathroom using her walker which she uses to ambulate. She states that she felt like her knees were getting weak and starting to buckle. During this time she did not have any chest pain, lightheadedness or dizziness. No shortnessf breath. She reports that she could tell that she was falling so she helped guide herself down gently. She states that she knows that she did not fall very hard, because her life alert did not trigger. She thinks that she might of hit the back of her head on the wall. But there was no loss of consciousness. She reports that she drug or self over to the telephone and called her neighbor, she was unable to get up from the floor without assistance, but paramedics were able to get her up. At this time she does not report any symptoms but has not attempted ambulation. She does not take any blood thinners. She reports that she had been on a prednisone taper for her low back pain and is scheduled for an MRI later this week. Related Data Home Medications ?Medication ?Instructions ?Recorded ?Confirmed liuglncv-lwk-qypqt acid 0.4 1 tab PO DAILY 11/29/20 12/11/23 mg-lycopene 300 mcg-lutein 250 mcg tablet (Centrum Silver) vitamins A,C,J-gbwv-papxrg 4,296 1 cap PO BID 11/29/20 12/11/23 mcg-226 mg-90 mg capsule (PreserVision AREDS) cetirizine 5 mg-pseudoephedrine ER 1 tab PO DAILY PRN 12/02/21 12/11/23 120 mg tablet,extended release,12hr (Zyrtec-D) acetaminophen 325 mg capsule 325 mg PO ONCE PRN 12/16/22 12/11/23 (Tylenol) prednisone 20 mg tablet See Rx Instructions PO DAILY #11 11/29/23 12/11/23 tabs lidocaine 5 % topical patch 1 patch topical DAILY #15 ea 12/11/23 (Lidoderm) methocarbamol 500 mg tablet 500 mg PO TID PRN #10 tabs 12/11/23 Previous Rx's ?Medication ?Instructions ?Recorded prednisone 20 mg tablet See Rx Instructions PO DAILY #11 11/29/23 tabs lidocaine 5 % topical patch 1 patch topical DAILY #15 ea 12/11/23 (Lidoderm) methocarbamol 500 mg tablet 500 mg PO TID PRN #10 tabs 12/11/23 Allergies Allergy/AdvReac Type Severity Reaction Status Date / Time environmental - pine tree AdvReac Other (See Uncoded 12/11/23 14:55 Comment) General Stated Complaint: Fall/Non TraumaCriteria LOUIS: 3 Exam Narrative Exam Narrative: Review of Systems: All systems reviewed & are unremarkable except as noted in HPI and below Well-developed, no acute distress NCAT Midline C-spine without step-off, tenderness or deformity, full range of motion of neck RRR, no murmur assault Unlabored respiratory effort, clear bilaterally Nondistended abdomen no focal neurologic deficits Bilateral lower extremities with without deformity or tenderness, 5 out of 5 strength bilaterally, no midline back tenderness, step-off or deformity Course Vital Signs Vital signs: Vital Signs Temperature 36.3 C L 12/11/23 14:40 Pulse 89 12/11/23 14:40 Respiratory Rate 20 12/11/23 14:40 Blood Pressure 131/75 12/11/23 14:40 Pulse Oximetry 96 12/11/23 14:40 Temperature 36.3 C L 12/11/23 14:40 Temperature Source Oral 12/11/23 14:40 Pulse 89 12/11/23 14:40 Respiratory Rate 20 12/11/23 14:40 Blood Pressure 131/75 12/11/23 14:40 Blood Pressure Position Sitting 12/11/23 14:40 Pulse Oximetry 96 12/11/23 14:40 Oxygen Delivery Method Room Air 12/11/23 14:40 Oxygen Flow Rate 0 12/11/23 14:40 Medical Decision Making Emergent evaluation of fall. Did not lose consciousness, unlikely cardiogenic syncope, consider vasovagal episode, orthostatic hypotension, even though she has known lumbar spinal issues, I do not suspect cauda equina as she does not have any lower extremity weakness. The patient's EKG was reviewed and independently interpreted: Sinus 87 normal axis normal intervals no STEMI. Plan for imaging of head, C-spine, lumbar spine, pelvis and hips to evaluate for any traumatic injuries after her fall. I have reviewed the radiology reports and Imaging is negative for any acute tra umatic injury. The patient was able to ambulate using a walker around the emergency department. She has some mild lumbar soreness. She was provided lidocaine and Robaxin in the emergency department with prescriptions for these to go home with. She has follow-up with pain management and PCP later this week for her ongoing chronic back pain. 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 Cantu Osteopenia (Acute) Hyperlipidemia (Acute) Hearing loss (Acute) Sensorineural hearing loss (SNHL) of both ears (Acute) Mixed conductive and sensorineural hearing loss, unilateral, right ear with restricted hearing on the contralateral side (Acute) Sensorineural hearing loss (SNHL) of left ear with restricted hearing of right ear (Acute) Nail dystrophy (Acute) Other hammer toe (acquired) (Acute) Surgical History Hx of tonsillectomy Extraction of cataract Family History Mother , 98 No problems noted. Father , 85 No problems noted. Sister No problems noted. Brother , 80 Heart disease Maternal Grandfather No problems noted. Paternal Grandfather No problems noted. Maternal Grandmother , CHILDBIRTH at age 40. No problems noted. Paternal Grandmother No problems noted. Brother Torticollis Sister Torticollis Son Hyperlipidemia Son No problems noted. Social History Smoking/Tobacco Use Status: Never Smoking risk assessment performed?: Yes Alcohol Intake: never Drug use: Never Substance use type: does not use Adopted: No Caregiver/Support person: No Foster care: No Household members: none Housing: condominium Number of Children: 2 number of grandchildren: 5 Communication Needs: None Education Level: college Do you need help understanding health information?: Rarely current occupation: Retired Pets and animals: No Sexually active: No Do you think of yourself as: straight/heterosexual Current gender identity: female What is your relationship status?: How often do you talk on the phone with friends or family?: three or more times per week How often do you get together with friends or relatives?: three or more times per week How often do you attend anabaptism or muslim services?: 4 or more times per year Do you belong to any clubs or organized social groups?: no Panel score (0-1 are the most socially isolated patients): 2 What type of physical activity do you participate in: none Duration: decline to answer Frequency: does not exercise Yesenia/Druze: Christian Special yesenia needs: No Agree to transfusion: Yes Seatbelt use: always Drive intox or ride w/intox refuse driver: No Working smoke detector in home: Yes Carbon monox detector in home: Yes Firearms in home: No Do you feel safe at home: Yes Do you feel safe in your relationship?: Yes Victim of physical abuse: No Victim of emotional abuse: No Victim of sexual abuse: No
[2023-12-11] MEDS: Acetaminophen 500 MG TAB 1000 MG PO (15:05)
[2023-12-11] MEDS: Lidocaine 5% Patch 1 PATCH TP (16:34)
[2023-12-11] MEDS: Methocarbamol 500 MG TAB PO (16:35)
[2023-12-11 16:45] VITALS: BP 193/70; PULSE 80; RESP 18; O2SAT 97
--- NOTE | 2023-12-11 18:37 | W.ED.FU ---
Date of service: 12/11/23 Follow Up Plan: discussed with neighbor of patient who is PCP in the area, given her findings today and her on going issues, I have filled out paperwork for home health, PT/OT
== END 2023-12-11 17:10 | disposition home or self-care (01) ==
PROVIDERS: Emergency Provider Emergency Medicine; PCP Family Medicine
DX: M48.061 Spinal stenosis, lumbar region without neurogenic claudication (principal); R55 Syncope and collapse; W18.39XA Other fall on same level, initial encounter; Y93.01 Activity, walking, marching and hiking; Y92.018 Other place in single-family (private) house as the place of occurrence of the external cause
CPT/HCPCS: 73521; 93005; 99285; 70450; 72100; 72125; 93010; 99284

== ENCOUNTER 2023-12-11 22:03 | Inpatient (IN) | payer MEDICARE, SELFPAY ==
[2023-12-11] VITALS (17 sets, daily range): BP systolic 117–167; BP diastolic 38–104; PULSE 68–88; RESP 11–26; TEMP 36.6; O2SAT 96–100
--- NOTE | 2023-12-11 22:00 | RT.EKG_ITS ---
APPROVED REPORT Exam: Resting ECG Reason for Exam: weakness Patient Location: E HR:76 bpm ECG Measurements Heart Rate 76 AXIS OK 202 P -63 QRSd 83 QRS 56 QT 362 T 87 QTc 408 Conclusion Sinus or ectopic atrial rhythm...P axis (-45,135) Probable LVH with secondary repol abnrm...multiple LVH criteria Physician: minimal lateral depression, unchanged from prior ekg's
--- NOTE | 2023-12-11 22:15 | DI.RAD_ITS ---
Exam(s) XR HIP RT COMPLETE AP PELVIS EXAM: XR HIP RT COMPLETE AP PELVIS CLINICAL HISTORY: fall, right hip pain. TECHNIQUE: 2D digital imaging was performed. Three views COMPARISON: CR XR HIP PELVIS ADULT BL from 12/11/2023 FINDINGS: BONES: No acute fracture is present. No bony destructive lesion is seen. JOINTS: No dislocation present. Mild degenerative changes of the hips. More severe degenerative ch anges of the lower lumbar spine. SOFT TISSUE: Tubing over midline. Vascular calcifications. IMPRESSION: No acute abnormality. DATA REPOSITORY: RADIATION DOSE DELIVERED:
[2023-12-11 22:29] LABS: HCT 30.9 % (36.0-46.0); HGB 10.8 g/dL (11.2-15.7); MCH 27.9 pg (27.0-33.0); MCV 80 fL (80-95); MPV 7.4 fL (8.0-11.0); Platelet Count 223 10^3/uL (130-400); RBC 3.87 10^6/uL (3.93-5.22); RDW 13.9 % (11.7-14.6); RDW-SD 39.9 fL; WBC 18.14 10^3/uL (4.4-10.8)
--- NOTE | 2023-12-11 22:31 | DI.RAD_ITS ---
Exam(s) XR CHEST 1V IN DI DEPT EXAM: XR CHEST 1V IN DI DEPT CLINICAL HISTORY: cough, SOB, eval for pneumonia TECHNIQUE: 2D digital imaging was performed. COMPARISON: CR XR PORTABLE CHEST AP from 10/27/2022 FINDINGS: LUNGS: Mild hyperinflation but clear. No pleural abnormality seen. HEART: Normal size. AORTA: Normal diameter. BONES: Unremarkable for age. Soft tissues: Unremarkable. IMPRESSION: No acute findings. DATA REPOSITORY: RADIATION DOSE DELIVERED:
--- NOTE | 2023-12-11 22:33 | ED.GENADUL_ITS ---
Discharge Plan Disposition Patient Disposition: Admit to [facility] Condition: Improving Discharge Details Chief Complaint: GenMedical Clinical Impression: Hyponatremia, Weakness, Falls frequently Primary Care Provider: Falguni Juarez ED Provider: Alessandro Last Home Meds and New Rx's Prescriptions: No Action Centrum Silver 0.4-300-250 mg-mcg-mcg tablet 1 tab PO DAILY PreserVision AREDS 14,320-226-200 pfrs-mo-koze capsule 1 cap PO BID cetirizine-pseudoephedrine [Zyrtec-D] 5-120 mg tablet extended release 12 hr 1 tab PO DAILY PRN acetaminophen [Tylenol] 325 mg capsule 325 mg PO ONCE PRN methocarbamol 500 mg tablet 500 mg PO TID PRNQty: 10 0RF lidocaine [Lidoderm] 5 % adhesive patch,medicated 1 patch topical DAILY Qty: 15 0RF Rx Instructions: leave on most painful area for up to 12 hrs HPI General Date/Time Provider Initiated Documentation: 12/11/23 22:10 . HPI Narrative: 88-year-old female with a past medical history of bilateral knee replacement, lumbar spinal stenosis, hearing loss, high cholesterol, who lives alone at home, presents today for fall. Patient was here earlier today, she had fallen after she states that her knees gave out on her. She did not have a syncopal event, but her knees got weak and she fell to the ground. She came to the ER and was evaluated. CT scan of the head and neck, and x-rays of the lumbar spine and hips and pelvis were negative for acute process. She was given a Lidoderm patch and Robaxin and discharged home with the assistance of neighbors. While at home she continued to felt extremely weak. She had notable difficulty utilizing her walker, and she again gently fell down to the ground once more. Family and friends including her primary care provider were at home and felt that she was not safe at home as she did not have appropriate strength to get up to the commode, ambulate around without assistance or anything else. She was brought back to the emergency department for reassessment. Patient also admits that she has been sleeping in her chair for the last few weeks secondary to not having enough strength to get up out of bed at home. Patient denies any saddle anesthesia, numbness or tingling in the groin, change in sensation when wiping. Patient denies any bowel or bladder incontinence, leakage, or retention. Patient denies any weakness in the lower extremities, atypical falls or imbalance. She does admit to a very mild cough. She denies any dysuria. No chest pain or shortness of breath. No other complaints at this time. Related Data Home Medications ?Medication ?Instructions ?Recorded ?Confirmed wlxmpbnj-tzj-hayyg acid 0.4 1 tab PO DAILY 11/29/20 12/11/23 mg-lycopene 300 mcg-lutein 250 mcg tablet (Centrum Silver) vitamins A,C,B-ajgb-rgxxqt 4,296 1 cap PO BID 11/29/20 12/11/23 mcg-226 mg-90 mg capsule (PreserVision AREDS) cetirizine 5 mg-pseudoephedrine ER 1 tab PO DAILY PRN 12/02/21 12/11/23 120 mg tablet,extended release,12hr (Zyrtec-D) acetaminophen 325 mg capsule 325 mg PO ONCE PRN 12/16/22 12/11/23 (Tylenol) lidocaine 5 % topical patch 1 patch topical DAILY #15 ea 12/11/23 12/11/23 (Lidoderm) methocarbamol 500 mg tablet 500 mg PO TID PRN #10 tabs 12/11/23 12/11/23 Previous Rx's ?Medication ?Instructions ?Recorded lidocaine 5 % topical patch 1 patch topical DAILY #15 ea 12/11/23 (Lidoderm) methocarbamol 500 mg tablet 500 mg PO TID PRN #10 tabs 12/11/23 Allergies Allergy/AdvReac Type Severity Reaction Status Date / Time environmental - pine tree AdvReac Other (See Uncoded 12/11/23 22:15 Comment) General Stated Complaint: GenMedical LOUIS: 3 Review of Systems All systems reviewed & are unremarkable except as noted in HPI and below Exam Narrative Exam Narrative: 1.Const: Well-nourished, Well-developed, appearing stated age 2.Eyes: PERRL, no conjunctival injection, and symmetrical lids. 3.ENT: Atraumatic external nose and ears. Dry MM. Neck: Symmetric, trachea midline, No thyromegaly. 4.CVS: +S1/S2, No murmurs or gallops. Peripheral pulses 2+ and equal in all extremities. Brisk capillary refill in all extremities. 5.RESP: Unlabored respiratory effort. Clear to auscultation bilaterally. No wheezes rales or rhonchi 6.GI: Soft, Nontender/Nondistended, No hepatosplenomegaly. No guarding or rebound. 7.MSK: Normocephalic/Atraumatic, Extremities w/o deformity or ttp No cyanosis or clubbing, patient has weakness of the right lower extremity, she is able to move it in all directions but is notably weak for hip flexion and extension. Go od dorsiflexion of the great toes bilaterally. Strength is described as 2 out of 5 on the right, 4 out of 5 on the left. Normal upper extremity strength. No midline tenderness to palpation over the CTLS spine. Normal ROM in flexion, extension, side bend, and rotation. Normal strength for dorsiflexion and plantar flexion of the great toe bilaterally. There is +2 over 2 dorsalis pedis pulses bilaterally. There is normal sensation to the skin with light touch at the foot, knee, and hip. Normal saddle sensation. Good sensation over the deep sural nerve area bilaterally. Rectal exam demonstrates good rectal tone with excellent ernie-rectal sensation. +5 out of 5 strength in the medial, ulnar, radial nerve distribution bilaterally in the hands as well as intact light touch sensation to these dermatomes on the hands Minimal achiness in the right hip on palpation. No pain with logroll of the hip 8.Skin: Warm, Dry. No rashes or lesions. 9.Neuro: electronic scale subassembler II-XII grossly intact. Sensation grossly intact, no focal neurologic deficits. 10.Psych: (AAO) x3. Appropriate mood and affect Course Vital Signs Vital signs: Vital Signs Temperature 36.6 C 12/11/23 22:07 Pulse 88 12/11/23 22:07 Respiratory Rate 18 12/11/23 22:07 Blood Pressure 123/104 H 12/11/23 22:07 Pulse Oximetry 98 12/11/23 22:07 Temperature 36.6 C 12/11/23 22:07 Temperature Source Oral 12/11/23 22:07 Pulse 88 12/11/23 22:07 Respiratory Rate 20 12/11/23 22:17 Respiratory Effort Normal, Non-Labored 12/11/23 22:17 Respiratory Depth Normal 12/11/23 22:17 Respiratory Pattern Normal 12/11/23 22:17 Blood Pressure 167/65 H 12/11/23 22:17 Blood Pressure Position Sitting 12/11/23 22:07 Pulse Oximetry 98 12/11/23 22:07 Oxygen Delivery Method Room Air 12/11/23 22:07 Oxygen Flow Rate 0 12/11/23 22:07 Pain Level 3 12/11/23 22:07 Medical Decision Making 88-year-old female with a past medical history of bilateral knee replacement, lumbar spinal stenosis, hearing loss, high cholesterol, who lives alone at home, presents today for fall. Patient was here earlier today, she had fallen after she states that her knees gave out on her. She did not have a syncopal event, but her knees got weak and she fell to the ground. She came to the ER and was evaluated. CT scan of the head and neck, and x-rays of the lumbar spine and hips and pelvis were negative for acute process. She was given a Lidoderm patch and Robaxin and discharged home with the assistance of neighbors. While at home she continued to felt extremely weak. She had notable difficulty utilizing her walker, and she again gently fell down to the ground once more. Family and friends including her primary care provider were at home and felt that she was not safe at home as she did not have appropriate strength to get up to the commode, ambulate around without assistance or anything else. She was brought back to the emergency department for reassessment. Patient also admits that she has been sleeping in her chair for the last few weeks secondary to not having enough strength to get up out of bed at home. Patient denies any saddle anesthesia, numbness or tingling in the groin, change in sensation when wiping. Patient denies any bowel or bladder incontinence, leakage, or retention. Patient denies any weakness in the lower extremities, atypical falls or imbalance. She does admit to a very mild cough. She denies any dysuria. No chest pain or shortness of breath. No other complaints at this time. Exam demonstrates weakness in the right lower extremity compared to the left. She states that it has been like this for the last day or so. Minimal achiness in the right hip but no pain with logroll. Normal sensation, normal rectal tone. Symptoms inconsistent with cauda equina syndrome at this time. Spinal stenosis may certainly be playing a component with chronic muscular atrophy however this is not grossly evident on visual inspection of the legs. CT scan from earlier today of the head did not show any evidence of stroke. No indication for emergent reimaging. Mucous membranes are noted to be dry. Patient does appear to be dehydrated. Patient may have added weakness from potential mild dehydration, UTI, less likely pneumonia or electrolyte abnormality. We will treat with a liter bolus of normal saline secondary to her evidence of clinical dehydration and potential symptomatology. We will evaluate for these etiologies. Patient did have a CT scan of the lumbar spine 16 days ago. Notable stenosis was noted then. She has no midline tenderness now or back tenderness to suggest no acute fracture or osseous process. X-ray was negative from earlier today. The fall that she has had between that time was very cushioned and not hard per the patient and the person she gently went down to the floor with. However out of an abundance of precaution we will get a repeat x-ray of the right hip as she did have some achiness there. Will get a chest x-ray to rule out pneumonia. Will monitor closely evaluate for concerning etiologies and reassess. 12:30 AM Laboratory workup has returned, patient's sodium is notably low at 117 with also a slightly low chloride. Renal function is normal. BUN is elevated in the 30s with a normal creatinine suggestive of a prerenal azotemia component. Saline had already been started, and as the patient had no seizures or anything like that we decided to hold off on hypertonic saline out of concern for potential overcorrection. Troponins are normal, EKG stable. Urinalysis showed trace leuk esterase, but no nitrites. Pending formal urinalysis. Chest x-ray negative, hip x-ray negative for acute process. COVID flu and RSV are negative. The hyponatremia may certainly be a component or causative agent of the patient's symptoms. Likely secondary to diet. Patient does have an elevated white count at 18, however she just finished her steroid prescription to 3 days ago. She has no fever or bandemia or significant left shift for that matter. Symptoms appear less likely to be significantly infectious. Still pending the remainder of the formal urinalysis. Discussed the case with the hospitalist Dr. Dobson, he agrees with the assessment and plan accepts the patient for admission. We will recommend admission for continued sodium replacement, PT and OT, and close monitoring. 1:06 AM Laboratory workup/repeat basic metabolic panel has returned, sodium 122. This is a 5% increase from the initial liter bolus she received. Would recommend holding off on hypertonic at this time for the concern for potential overcorrection if she received additional sodium supplementation. I relayed this to the hospitalist as well. He agrees. Patient remains hemodynamically stable. She remains neurologically intact with no seizures dysrhythmia or other abnormality. I have extensively reviewed the treatment plan with the patient. I have addressed all patient concerns at this time. I have also discussed the plan with the admitting physician and they agree with the current assessment and plan and have agreed to assume responsibility for the patient. All parties demonstrate verbal understanding and agreement with our assessment and plan at this time. The documentation in this chart was dictated using [employer] dictation software. Please excuse any dictation errors. FINDINGS: Bones/joints: No acute fracture. No dislocation. Lower lumbar spine degenerative disease. Soft tissues: No acute soft tissue pathology. No gas or foreign body. IMPRESSION: 1. No pelvic fracture or diastasis. 2. No hip fracture or dislocation. 3. Lower lumbar spine degenerative disease. Thank you for allowing us to participate in the care of your patient. Dictated and Authenticated by: Glenn Green MD 12/11/2023 11:49 PM Eastern Time ([place] & [place] FINDINGS: Lungs: Bilateral jlgm-qs-rumlsnnl hyperinflation which may reflect underlying emphysema or COPD. No acute infiltrates. No edema. Pleural spaces: No pleural effusion. Heart/Mediastinum: Normal heart size. No mediastinal widening. Bones/joints: Degenerative thoracic spine changes. IMPRESSION: Hyperinflation which could reflect underlying emphysema or COPD. No acute infiltrates or edema. Differential diagnosis for the hyperinflation would include an upper respiratory infection with air trapping. Thank you for allowing us to participate in the care of your patient. Dictated and Authenticated by: Glenn Green MD 12/11/2023 11:47 PM Eastern Time ([place] & [place]) Quality:SDOH Health Related Social Needs: No Data to Display Critical Care Time Critical Care Time Critical Care Time: Yes Total Critical Care Time: 45 Attestation: Upon my evaluation, this patient had a high probability of imminent or life- threatening deterioration, which required my direct attention, intervention, and personal management. I have personally provided 45 minutes of critical care time exclusive of time spent on separately billable procedures. Time includes review of laboratory data, radiology results, discussion with consultants, and monitoring for potential decompensation. Interventions were performed as documented. [facility] All Active Problems (Updated 12/12/23 @ 01:08 by Alessandro Last DO) Falls frequently (Acute) Weakness (Acute) Hyponatremia (Acute) Hyponatremia (Acute) Leukocytosis (leucocytosis) (Acute) Back pain (Acute) Fall (Acute) Spinal stenosis of lumbar region (Chronic) Acute right hip pain (Acute) Sacro ilial pain (Acute) 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 Cantu Osteopenia (Acute) Hyperlipidemia (Acute) Hearing loss (Acute) Sensorineural hearing loss (SNHL) of both ears (Acute) Mixed conductive and sensorineural hearing loss, unilateral, right ear with restricted hearing on the contralateral side (Acute) Sensorineural hearing loss (SNHL) of left ear with restricted hearing of right ear (Acute) Nail dystrophy (Acute) Other hammer toe (acquired) (Acute) Surgical History Hx of tonsillectomy Extraction of cataract Family History Mother , 98 No problems noted. Father , 85 No problems noted. Sister No problems noted. Brother , 80 Heart disease Maternal Grandfather No problems noted. Paternal Grandfather No problems noted. Maternal Grandmother , CHILDBIRTH at age 40. No problems noted. Paternal Grandmother No problems noted. Brother Torticollis Sister Torticollis Son Hyperlipidemia Son No problems noted. Social History Smoking/Tobacco Use Status: Never Smoking risk assessment performed?: Yes Alcohol Intake: never Drug use: Never Substance use type: does not use Adopted: No Caregiver/Support person: No Foster care: No Household members: none Housing: condominium Number of Children: 2 number of grandchildren: 5 Communication Needs: None Education Level: college Do you need help understanding health information?: Rarely current occupation: Retired Pets and animals: No Sexually active: No Do you think of yourself as: straight/heterosexual Current gender identity: female What is your relationship status?: How often do you talk on the phone with friends or family?: three or more times per week How often do you get together with friends or relatives?: three or more times per week How often do you attend mormonism or adventist services?: 4 or more times per year Do you belong to any clubs or organized social groups?: no Panel score (0-1 are the most socially isolated patients): 2 What type of physical activity do you participate in: none Duration: decline to answer Frequency: does not exercise Yesenia/Rastafari: Adventist Special yesenia needs: No Agree to transfusion: Yes Seatbelt use: always Drive intox or ride w/intox refuse driver: No Working smoke detector in home: Yes Carbon monox detector in home: Yes Firearms in home: No Do you feel safe at home: Yes Do you feel safe in your relationship?: Yes Victim of physical abuse: No Victim of emotional abuse: No Victim of sexual abuse: No
[2023-12-11 22:34] LABS: BE (Venous) 1 mmol/L (-2-3); HCO3 (Venous) 26 mmol/L (23-28); O2 Sat (Venous) 79 %; TCO2 (Venous) 24 mmol/L (24-29); pCO2 (Venous) 43 mmHg (41-51); pH (Venous) 7.39 (7.31-7.41); pO2 (Venous) 43 mmHg
[2023-12-11 22:39] LABS: Bilirubin Negative (Negative); Blood Trace-intact (Negative); Clarity Sl Cloudy (Clear); Glucose 100 mg/dL (Negative); Ketones 40 mg/dL (Negative); Leukocyte Esterase Small (Negative); Nitrite Negative (Negative); Specific Gravity 1.025 (1.005-1.025); Urobilinogen 0.2 mg/dL (Up to 0.2)
[2023-12-11 22:52] LABS: ALT 21 U/L (14-59); AST 16 U/L (15-37); Albumin 3.5 g/dL (3.4-5.0); Alkaline Phosphatase 125 U/L (46-116); Anion Gap 7.6 mmol/L (3-11); BUN 38 mg/dL (7-18); Bilirubin, Total 0.54 mg/dL (0.2-1.0); CO2 26.4 mmol/L (21.0-32.0); CREATININE 0.9 mg/dL (0.55-1.02); Calcium 9.7 mg/dL (8.5-10.1); Chloride 83 mmol/L (98-107); Estimated GFR 61.49 (mL/min/1.73m2); Glucose 145 mg/dL (74-106); Potassium 4.1 mmol/L (3.5-5.1); Total Protein 8.1 g/dL (6.4-8.2)
[2023-12-11 22:54] LABS: Absolute Lymphocyte Count 9.25 10^3/uL (1.2-3.4); Absolute Monocyte Count 1.27 10^3/uL (0.1-0.8); Absolute Neutrophil Count 7.62 10^3/uL (1.2-6.7); Atypical Lymphocytes % 3 %; Creatine Kinase 106 U/L (26-192); Diff Comment Manual Differential; RBC Morphology Normal
[2023-12-11 23:00] LABS: TSH (W/Ref FT4) 1.49 uIU/mL (0.36-3.74); Troponin I 50 ng/L (<or=51)
[2023-12-11 23:08] LABS: COVID-19 PCR Negative (Negative); Influenza A PCR Negative (Negative); Influenza B PCR Negative (Negative); RSV PCR Negative (Negative)
[2023-12-11 23:09] LABS: Source Nasopharynx
[2023-12-11 23:13] LABS: Sodium 117 mmol/L (136-145)
[2023-12-11] MEDS: Normal Saline 1,000 ML 1000 ML IV (23:25)
[2023-12-11 23:43] LABS: Troponin I 47 ng/L (<or=51)
--- NOTE | 2023-12-11 23:47 | DI.VRAD_ITS ---
PROCEDURE INFORMATION: Exam: XR Chest Exam date and time: 12/11/2023 11:02 PM Age: 88 years old Clinical indication: Cough and shortness of breath; Additional info: Cough, SOB, eval for pneumonia TECHNIQUE: Imaging protocol: Radiologic exam of the chest. Views: 1 view. COMPARISON: CR XR PORTABLE CHEST AP 10/27/2022 12:41 PM FINDINGS: Lungs: Bilateral [id number]-[id number] hyperinflation which may reflect underlying emphysema or COPD. No acute infiltrates. No edema. Pleural spaces: No pleural effusion. Heart/Mediastinum: Normal heart size. No mediastinal widening. Bones/joints: Degenerative thoracic spine changes. IMPRESSION: Hyperinflation which could reflect underlying emphysema or COPD. No acute infiltrates or edema. Differential diagnosis for the hyperinflation would include an upper respiratory infection with air trapping. Dictated and Authenticated by: Glenn Green MD. Ordering:POLY Francois MD
--- NOTE | 2023-12-11 23:49 | DI.VRAD_ITS ---
PROCEDURE INFORMATION: Exam: XR Right Hip Exam date and time: 12/11/2023 10:57 PM Age: 88 years old Clinical indication: Injury or trauma; Blunt trauma (contusions or hematomas); Injury details: Fall, right hip pain TECHNIQUE: Imaging protocol: Radiologic exam of the right hip. Views: 2 or 3 views hip with pelvis when performed. COMPARISON: CR XR HIP PELVIS ADULT BL 12/11/2023 3:28 PM FINDINGS: Bones/joints: No acute fracture. No dislocation. Lower lumbar spine degenerative disease. Soft tissues: No acute soft tissue pathology. No gas or foreign body. IMPRESSION: 1. No pelvic fracture or diastasis. 2. No hip fracture or dislocation. 3. Lower lumbar spine degenerative disease. Dictated and Authenticated by: Glenn Green MD. Ordering:POLY Francois MD
[2023-12-12] VITALS (13 sets, daily range): BP systolic 107–156; BP diastolic 47–78; PULSE 72–86; RESP 11–20; TEMP 36–37; O2SAT 95–99
--- NOTE | 2023-12-12 00:11 | HPE_ITS ---
Date of service: 12/12/23 Time of Service: 00:11 Assessment and Plan Assessment and plan (1) Hyponatremia: Start date: 12/11/23 Status: Acute Assessment and plan: This is an 88-year-old lady who lives alone in a senior apartment recently not feeling well and not eating and drinking well. She does complain of frequent urination but no burning. She has no abdominal complaints or respiratory complaints though chest x-ray did suggest upper respiratory infection. There were no infiltrates indicating pneumonia and patient does have an elevated WBC and will have blood cultures performed prior to initiating antibiotic for UTI. She has been on steroids recently which the ED physician thought might account for the leukocytosis. She has had no fever. Patient did have hyponatremia with sodium at 117 which corrected to 122 after a liter of normal saline. She is feeling slightly better after fluids. She did have urine culture performed and will be placed on Rocephin for possible UTI. This may also cover for upper respiratory infection though there is no evidence of severe infection involving her respiratory system. She will be seen by physical therapy to help with ambulation with her back pain and recent falls. She plans to return to her apartment. She is a full code. (2) Fall: Start date: 12/11/23 Status: Acute Assessment and plan: Frequent falls patient with weakness secondary to UTI. Her back pain does contribute to her weakness but usually feels better with ambulation. She is status post right and left TKA and not complaining of leg pain. She does not have claudication with her spinal stenosis. PT will evaluate the patient for rehabilitation to return home independently. Qualifiers: Encounter type: subsequent encounter Qualified Code(s): W19.XXXD - Unspecified fall, subsequent encounter (3) Leukocytosis (leucocytosis): Start date: 12/11/23 Status: Acute Assessment and plan: Secondary to possible UTI had no fever. Blood cultures were not performed urine culture will be performed patient will be placed on Rocephin IV. If urine cultures are positive adjust antibiotic therapy for discharge. This antibiotic also to cover possible respiratory infection though this is not evident by physical exam or history. As stated blood cultures were not performed. These will be obtained prior to initiating Rocephin. Qualifiers: Leukocytosis type: other Qualified Code(s): D72.828 - Other elevated white blood cell count (4) UTI (urinary tract infection): Status: Acute Assessment and plan: Increased urinary frequency with small leukocyte esterase and blood in the urine. Urine culture was performed and patient will be placed on Rocephin IV. Qualifiers: Urinary tract infection type: acute cystitis Hematuria presence: with hematuria Qualified Code(s): N30.01 - Acute cystitis with hematuria (5) Acute right hip pain: Start date: 12/11/23 Status: Acute Assessment and plan: Imaging negative for acute fracture with recent falls. PT for evaluation and treatment. 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 PT evaluation for safety and possibly assisted ambulation at home. Qualifiers: Neurogenic claudication status: without neurogenic claudication Q ualified Code(s): M48.061 - Spinal stenosis, lumbar region without neurogenic claudication History of Present Illness History of Present Illness Chief Complaint: Weakness with falling, spinal stenosis pain Narrative: This is an 88-year-old female patient with a history of advancing spinal stenosis with increased weakness recently and falling with inability to stand at home having 2 visits to the ED for evaluation the day prior to admission. Patient states that she has not been eating or drinking for the last several days not feeling well but with no abdominal complaints. She does have frequent urination. She had a urinalysis in the ED which did not appear infected though did have small leukocyte esterase and hematuria despite having an increased WBC on steroid pulse therapy ordered on 11/29/2023. There were ketones and blood in the urine with small leukocyte esterase with cloudy appearance with no mention of WBCs. Urine culture should be performed. She did not have fever but does have frequency of urination as mentioned. With her spinal stenosis she feels best when she is moving and recently has had less activity with increased pain. With her fall she did hurt her right hip with had no injury detected on x-ray. She does not have exertional claudication with her spinal stenosis. She has had both knees replaced. She does live alone in a senior apartment. She is a full code. Review of Systems Narrative: 13 point review of systems otherwise unrevealing or stable. Patient is hard of hearing. She denies any chest pain or exertional respiratory symptoms. 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 Cantu Osteopenia (Acute) Hyperlipidemia (Acute) Hearing loss (Acute) Sensorineural hearing loss (SNHL) of both ears (Acute) Mixed conductive and sensorineural hearing loss, unilateral, right ear with restricted hearing on the contralateral side (Acute) Sensorineural hearing loss (SNHL) of left ear with restricted hearing of right ear (Acute) Nail dystrophy (Acute) Other hammer toe (acquired) (Acute) Surgical History Hx of tonsillectomy Extraction of cataract Family History Mother , 98 No problems noted. Father , 85 No problems noted. Sister No problems noted. Brother , 80 Heart disease Maternal Grandfather No problems noted. Paternal Grandfather No problems noted. Maternal Grandmother , CHILDBIRTH at age 40. No problems noted. Paternal Grandmother No problems noted. Brother Torticollis Sister Torticollis Son Hyperlipidemia Son No problems noted. Social History Smoking/Tobacco Use Status: Never Smoking risk assessment performed?: Yes Alcohol Intake: never Drug use: Never Substance use type: does not use Adopted: No Caregiver/Support person: No Foster care: No Household members: none Housing: condominium Number of Children: 2 number of grandchildren: 5 Communication Needs: None Education Level: college Do you need help understanding health information?: Rarely current occupation: Retired Pets and animals: No Sexually active: No Do you think of yourself as: straight/heterosexual Current gender identity: female What is your relationship status?: How often do you talk on the phone with friends or family?: three or more times per week How often do you get together with friends or relatives?: three or more times per week How often do you attend episcopal or adventism services?: 4 or more times per year Do you belong to any clubs or organized social groups?: no Panel score (0-1 are the most socially isolated patients): 2 What type of physical activity do you participate in: none Duration: decline to answer Frequency: does not exercise Yesenia/Voodoo: Jainism Special yesenia needs: No Agree to transfusion: Yes Seatbelt use: always Drive intox or ride w/intox steam train driver: No Working smoke detector in home: Yes Carbon monox detector in home: Yes Firearms in home: No Do you feel safe at home: Yes Do you feel safe in your relationship?: Yes Victim of physical abuse: No Victim of emotional abuse: No Victim of sexual abuse: No Meds Allergies and Home Medications Allergies Allergy/AdvReac Type Severity Reaction Status Date / Time environmental - pine tree AdvReac Other (See Uncoded 12/11/23 22:15 Comment) Home Medications ?Medication ?Instructions ?Recorded ?Confirmed ?Type ptzovvbc-pcb-zyfod acid 0.4 1 tab PO DAILY 11/29/20 12/11/23 History mg-lycopene 300 mcg-lutein 250 mcg tablet (Centrum Silver) vitamins A,C,J-sboe-rcjoyu 4,296 1 cap PO BID 11/29/20 12/11/23 History mcg-226 mg-90 mg capsule (PreserVision AREDS) cetirizine 5 mg-pseudoephedrine ER 1 tab PO DAILY PRN 12/02/21 12/11/23 History 120 mg tablet,extended release,12hr (Zyrtec-D) acetaminophen 325 mg capsule 325 mg PO ONCE PRN 12/16/22 12/11/23 History (Tylenol) lidocaine 5 % topical patch 1 patch topical DAILY #15 ea 12/11/23 12/11/23 Rx (Lidoderm) methocarbamol 500 mg tablet 500 mg PO TID PRN #10 tabs 12/11/23 12/11/23 Rx Exam Narrative Exam Narrative: General: Patient appears appropriate for age, hard of hearing with her hearing aid low on battery. He is alert and oriented x 3. She is in no acute distress. She does have wincing when she moves in bed with increased back pain from being in bed. HEENT: Normocephalic, eyes with pupils equal and reactive to light symmetrically, extraocular movement intact and sclera anicteric. Oropharynx with slightly dry mucosa and fair dentition. Patient is wearing hearing aids. Neck: Supple without JVD. Back: Kyphotic without CVA tenderness. Lungs: Fair aeration with no focalizing rales or rhonchi. Bronchovesicular breath sounds diffusely with no expiratory wheeze. Breast: Exam deferred. Heart: Regular rate and rhythm with pansystolic murmur 3/6. Heart sounds are quiet. There is an S4 gallop. No rubs. Abdomen: Obese contour, soft nontender to palpation with no palpable hepatosplenomegaly. Bowel sounds positive all quadrants. Genitalia/rectal: Exam deferred. Patient is wearing adult diaper. Extremities: Without clubbing, cyanosis or pitting edema. Good capillary refill. Well-healed scars over both anterior knees with previous bilateral TKA's. Skin: Actinic changes over sun exposed areas, otherwise normal color, warm and dry. Patient does have loss of hair over legs with slightly shiny atrophic skin but no ulcerations or hyperpigmentation. No atrophy. Neuro: Cranial nerves II to XII gross intact with hearingacuity decreased. No focalizing motor deficits. No tremor. Psych: Normal affect and mood. No abnormal thought processes. Remote and recent memory grossly intact. Results Imaging Imaging Studies: Exam: XR Chest Exam date and time: 12/11/2023 11:02 PM Age: 88 years old Clinical indication: Cough and shortness of breath; Additional info: Cough, SOB, eval for pneumonia TECHNIQUE: Imaging protocol: Radiologic exam of the chest. Views: 1 view. COMPARISON: CR XR PORTABLE CHEST AP 10/27/2022 12:41 PM FINDINGS: Lungs: Bilateral qwdm-ho-zmgdmoyx hyperinflation which may reflect underlying emphysema or COPD. No acute infiltrates. No edema. Pleural spaces: No pleural effusion. Heart/Mediastinum: Normal heart size. No mediastinal widening. Bones/joints: Degenerative thoracic spine changes. IMPRESSION: Hyperinflation which could reflect underlying emphysema or COPD. No acute infiltrates or edema. Differential diagnosis for the hyperinflation would include an upper respiratory infection with air trapping. Exam: XR Right Hip Exam date and time: 12/11/2023 10:57 PM Age: 88 years old Clinical indication: Injury or trauma; Blunt trauma (contusions or hematomas); Injury details: Fall, right hip pain TECHNIQUE: Imaging protocol: Radiologic exam of the right hip. Views: 2 or 3 views hip with pelvis when performed. COMPARISON: CR XR HIP PELVIS ADULT BL 12/11/2023 3:28 PM FINDINGS: Bones/joints: No acute fracture. No dislocation. Lower lumbar spine degenerative disease. Soft tissues: No acute soft tissue pathology. No gas or foreign body. IMPRESSION: 1. No pelvic fracture or diastasis. 2. No hip fracture or dislocation. 3. Lower lumbar spine degenerative disease. EXAM: XR LUMBAR SPINE AP, LAT Date of exam: 12/11/2023 3:56 PM CLINICAL HISTORY: fall. TECHNIQUE: 2D digital imaging was performed. Five views. COMPARISON: CT CT LUMBAR SPINE WO from 11/25/2023 FINDINGS: The bones are obscured on the AP view by overlying bowel gas. Degenerative disc changes. Mild degenerative scoliosis. Facet degenerative changes also present. IMPRESSION: Degenerative changes. No acute abnormality. Labs 12/11/23 22:19 12/12/23 00:28 Labs: Laboratory Results - last 24 hr 12/11/23 12/11/23 12/11/23 22:19 22:25 23:16 WBC 18.14 H RBC 3.87 L Hgb 10.8 L Hct 30.9 L MCV 80 MCH 27.9 MCHC 35.0 RDW 13.9 Plt Count 223 MPV 7.4 L Immature Gran % 0.0 Neutrophils % 42.0 Lymphocytes % 48.0 Atypical Lymphs % 3 Monocytes % 7.0 Eosinophils % 0.0 Basophils % 0.0 Nucleated RBC % 0.0 Absolute Neutrophils 7.62 H Absolute Lymphocytes 9.25 H Absolute Monocytes 1.27 H Absolute Eosinophils 0.00 Absolute Basophils 0.00 RBC Morphology Normal VBG pH 7.39 VBG pCO2 43 VBG pO2 43 VBG HCO3 26 VBG Total CO2 24 VBG O2 Saturation 79 VBG Base Excess 1 Sodium 117 L* Potassium 4.1 Chloride 83 L Carbon Dioxide 26.4 Anion Gap 7.6 BUN 38 H Creatinine 0.9 Est GFR (CKD-EPI 2020) 61.49 Glucose 145 H Calcium 9.7 Total Bilirubin 0.54 AST 16 ALT 21 Alkaline Phosphatase 125 H Creatine Kinase 106 Troponin I 50 47 Total Protein 8.1 Albumin 3.5 TSH 1.49 Urine Color Yellow Urine Clarity Sl Cloudy Urine pH 7.0 Ur Specific [place] 1.025 Urine Protein 100 H Urine Ketones 40 H Urine Blood Trace-intact H Urine Nitrite Negative Urine Bilirubin Negative Urine Urobilinogen 0.2 Ur Leukocyte Esterase Small H Urine Glucose 100 H COVID-19 Source Nasopharynx SARS-CoV-2 (PCR) Negative Influenza Type A (PCR) Negative Influenza Type B (PCR) Negative RSV (PCR) Negative Last Vital Signs Temp 36.6 C 12/11/23 22:07 Pulse 70 12/11/23 23:16 Resp 18 12/11/23 23:20 BP 132/47 L 12/11/23 23:16 Pulse Ox 98 12/11/23 23:20 Time Spent Time spent with Patient: >75 minutes Time was spent: preparing to see the patient(eg.review tests), obtaining and/or reviewing separately otained hiistory, ordering medications,tests, procedures, indepentently interpreting results, counseling the patient and care coordination
[2023-12-12 00:44] LABS: Anion Gap 7.1 mmol/L (3-11); BUN 37 mg/dL (7-18); CO2 25.9 mmol/L (21.0-32.0); CREATININE 0.7 mg/dL (0.55-1.02); Calcium 9.1 mg/dL (8.5-10.1); Chloride 89 mmol/L (98-107); Estimated GFR 83.13 (mL/min/1.73m2); Glucose 114 mg/dL (74-106); Potassium 4.3 mmol/L (3.5-5.1)
[2023-12-12 00:54] LABS: Troponin I 49 ng/L (<or=51)
[2023-12-12 00:57] LABS: Sodium 122 mmol/L (136-145)
--- NOTE | 2023-12-12 01:26 | W.PC.ACHO ---
Registration Status: Primary Language: Preferred Language: ED Information & Data Chief Complaint GenMedical 12/11/23 22:38 Other Complaint Fall/Non TraumaCriteria 12/11/23 22:07 Triage Note Pt seen here earlier today 12/11/23 22:07 for a fall. Pt was d/c'd and fell again at home and has been unable to ambulate self with walker at home. c/o lower back pain. (Last Reviewed 12/12/23 @ 00:22 by Khris Escalona) Hx of tonsillectomy Extraction of cataract Most Recent Vital Signs Temperature 36.6 C 12/11/23 22:07 Temperature Source Oral 12/11/23 22:07 Pulse 82 12/12/23 00:31 Pulse 86 12/12/23 00:31 Respiratory Rate 16 12/12/23 00:31 Respiratory Effort Normal, Non-Labored 12/11/23 22:17 Respiratory Depth Normal 12/11/23 22:17 Respiratory Pattern Normal 12/11/23 22:17 Blood Pressure 156/61 H 12/12/23 00:31 Blood Pressure Mean 87 12/12/23 00:31 Blood Pressure Position Sitting 12/11/23 22:07 Pulse Oximetry 98 12/12/23 00:31 Oxygen Delivery Method Room Air 12/11/23 22:07 Oxygen Flow Rate 0 12/11/23 22:07 Pain Level 3 12/11/23 22:07 Allergies environmental - pine tree Adverse Reaction (Uncoded 12/11/23 22:15) Other (See Comment) congestion Precautions Isolation Standard precaution 12/11/23 22:14 IV IV Catheter Type [Left Peripheral IV Antecubital] IV Catheter Gauge [Left 18 Antecubital] Diagnostics 12/12/23 12/11/23 12/11/23 Range/Units 00:28 23:16 22:25 WBC (4.4-10.8) 10^3/uL RBC (3.93-5.22) 10^6/uL Hgb (11.2-15.7) g/dL Hct (36.0-46.0) % MCV (80-95) fL MCH (27.0-33.0) pg MCHC (32.0-36.0) % RDW (11.7-14.6) % Plt Count (130-400) 10^3/uL MPV (8.0-11.0) fL Immature Gran % % Neutrophils % % Lymphocytes % % Atypical Lymphs % % Monocytes % % Eosinophils % % Basophils % % Nucleated RBC % (0.0-0.3) % Absolute Neutrophils (1.2-6.7) 10^3/uL Absolute Lymphocytes (1.2-3.4) 10^3/uL Absolute Monocytes (0.1-0.8) 10^3/uL Absolute Eosinophils (0.0-0.7) 10^3/uL Absolute Basophils (0.0-0.2) 10^3/uL RBC Morphology VBG pH (7.31-7.41) VBG pCO2 (41-51) mmHg VBG pO2 mmHg VBG HCO3 (23-28) mmol/L VBG Total CO2 (24-29) mmol/L VBG O2 Saturation % VBG Base Excess (-2-3) mmol/L Sodium 122 L* (136-145) mmol/L Potassium 4.3 (3.5-5.1) mmol/L Chloride 89 L (98-107) mmol/L Carbon Dioxide 25.9 (21.0-32.0) mmol/L Anion Gap 7.1 (3-11) mmol/L BUN 37 H (7-18) mg/dL Creatinine 0.7 (0.55-1.02) mg/dL Est GFR (CKD-EPI 2020) 83.13 (mL/min/1.73m2) Glucose 114 H (74-106) mg/dL Serum Osmolality Calcium 9.1 (8.5-10.1) mg/dL Total Bilirubin (0.2-1.0) mg/dL AST (15-37) U/L ALT (14-59) U/L Alkaline Phosphatase (46-116) U/L Creatine Kinase (26-192) U/L Troponin I 49 47 (<or=51) ng/L Total Protein (6.4-8.2) g/dL Albumin (3.4-5.0) g/dL TSH (0.36-3.74) uIU/mL Urine Color Yellow (Yellow) Urine Clarity Sl Cloudy (Clear) Urine pH 7.0 (5-8) Ur Specific [place] 1.025 (1.005-1.025) Urine Protein 100 H (Negative) mg/dL Urine Ketones 40 H (Negative) mg/dL Urine Blood Trace-intact H (Negative) Urine Nitrite Negative (Negative) Urine Bilirubin Negative (Negative) Urine Urobilinogen 0.2 (Up to 0.2) mg/dL Ur Leukocyte Esterase Small H (Negative) Urine Glucose 100 H (Negative) mg/dL COVID-19 Source SARS-CoV-2 (PCR) (Negative) Influenza Type A (PCR) (Negative) Influenza Type B (PCR) (Negative) RSV (PCR) (Negative) Path Cons Comment 12/11/23 Range/Units 22:19 WBC 18.14 H (4.4-10.8) 10^3/uL RBC 3.87 L (3.93-5.22) 10^6/uL Hgb 10.8 L (11.2-15.7) g/dL Hct 30.9 L (36.0-46.0) % MCV 80 (80-95) fL MCH 27.9 (27.0-33.0) pg MCHC 35.0 (32.0-36.0) % RDW 13.9 (11.7-14.6) % Plt Count 223 (130-400) 10^3/uL MPV 7.4 L (8.0-11.0) fL Immature Gran % 0.0 % Neutrophils % 42.0 % Lymphocytes % 48.0 % Atypical Lymphs % 3 % Monocytes % 7.0 % Eosinophils % 0.0 % Basophils % 0.0 % Nucleated RBC % 0.0 (0.0-0.3) % Absolute Neutrophils 7.62 H (1.2-6.7) 10^3/uL Absolute Lymphocytes 9.25 H (1.2-3.4) 10^3/uL Absolute Monocytes 1.27 H (0.1-0.8) 10^3/uL Absolute Eosinophils 0.00 (0.0-0.7) 10^3/uL Absolute Basophils 0.00 (0.0-0.2) 10^3/uL RBC Morphology Normal VBG pH 7.39 (7.31-7.41) VBG pCO2 43 (41-51) mmHg VBG pO2 43 mmHg VBG HCO3 26 (23-28) mmol/L VBG Total CO2 24 (24-29) mmol/L VBG O2 Saturation 79 % VBG Base Excess 1 (-2-3) mmol/L Sodium 117 L* (136-145) mmol/L Potassium 4.1 (3.5-5.1) mmol/L Chloride 83 L (98-107) mmol/L Carbon Dioxide 26.4 (21.0-32.0) mmol/L Anion Gap 7.6 (3-11) mmol/L BUN 38 H (7-18) mg/dL Creatinine 0.9 (0.55-1.02) mg/dL Est GFR (CKD-EPI 2020) 61.49 (mL/min/1.73m2) Glucose 145 H (74-106) mg/dL Serum Osmolality Pending Calcium 9.7 (8.5-10.1) mg/dL Total Bilirubin 0.54 (0.2-1.0) mg/dL AST 16 (15-37) U/L ALT 21 (14-59) U/L Alkaline Phosphatase 125 H (46-116) U/L Creatine Kinase 106 (26-192) U/L Troponin I 50 (<or=51) ng/L Total Protein 8.1 (6.4-8.2) g/dL Albumin 3.5 (3.4-5.0) g/dL TSH 1.49 (0.36-3.74) uIU/mL Urine Color (Yellow) Urine Clarity (Clear) Urine pH (5-8) Ur Specific [place] (1.005-1.025) Urine Protein (Negative) mg/dL Urine Ketones (Negative) mg/dL Urine Blood (Negative) Urine Nitrite (Negative) Urine Bilirubin (Negative) Urine Urobilinogen (Up to 0.2) mg/dL Ur Leukocyte Esterase (Negative) Urine Glucose (Negative) mg/dL COVID-19 Source Nasopharynx SARS-CoV-2 (PCR) Negative (Negative) Influenza Type A (PCR) Negative (Negative) Influenza Type B (PCR) Negative (Negative) RSV (PCR) Negative (Negative) Path Cons Comment Pending Intake and Output - 24 Hour Total 12/11/23 22:03 thru 12/12/23 00:31 Intake Total 1010 Balance 1010 Weight 68.765 kg Intake: IV 1010 Falls Risk Assessment History of Falls Admit Due to Fall 12/11/23 22:17 Contributing Factors Confusion,Unstable, 12/11/23 22:17 Impairments,Incontinence, Medications Ambulatory Aids Uses ambulatory device 12/11/23 22:17 Tubes/Lines None 12/11/23 22:17 Gait Evaluation W/any additional score 12/11/23 22:17 Cognition Cognitive impairment 12/11/23 22:17 Fall Total Score 90 12/11/23 22:17 Level of Risk Maximum Risk 12/11/23 22:17 Problems (Last Reviewed 12/12/23 @ 00:22 by Khris Escalona) Hyponatremia (Acute) Leukocytosis (leucocytosis) (Acute) Fall (Acute) Spinal stenosis of lumbar region (Chronic) Acute right hip pain (Acute) v v v v v v v v v Sending and/or Receiving Nurses: Please use comment section below to note any information pertinent to the patient hand-off not included above. Information / Comments: Patient came into ED earlier today from fall and was discharged home. Returned with additional fall, patient unstable and unable to walk independently. hyponatremia 117 went to 122 after 1L of saline. Troponin was negative. Patient needs urine collection, she has been unable to urinate. alert and oriented. patient 2 assist to ambulate patient has left antecubital IV 18 ga Report received from: MICHELA Gutierrez
[2023-12-12 01:44] LABS: POTASSIUM,URINE RANDOM 29.2 mmol/L; Sodium, Urine 19 mmol/L
[2023-12-12] MEDS: Heparin 5,000 UNITS/ML VIAL 5000 UNITS SC ×2 (05:13→14:48)
--- NOTE | 2023-12-12 08:51 | PDOC.CMIN ---
Date of service: 12/12/23 Time of Service: 08:51 Care Management Initial Assmt Initial Assessment Reason for Hospitalization: hyponatremia Functional Status/Living Situation Patient Presentation: Shannon was sitting up in a chair visiting with her brother, [id number] and niece when CM went to meet with her. CM chose not to interrupt the visit and returned later after Shannon's family left. She was still sitting in the chair and engaged easily with CM. She was pleasant and forthcoming with information. Shannon has 2 sons and several grandchildren. The family is very close and talks frequently on the phone when unable to visit. One son lives in [place] and the other is in [place]. 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 Until 2 weeks ago she was very independent and did not need a cane or walker. Since then she has felt weak and has fallen, which frightens her. Shannon also shared that she has not been eating well. She identified a combination of not wanting to cook just for herself and not having much of an appetite as contributing factors. CM will request a nutrition consult. CM did ask about Meals on Wheels but Shannon was firm in stating that it was not an acceptable option. Shannon lives in [facility]. She stated that she is very happy there and has wonderful neighbors. Her next door neighbor is a retired nurse named Autumn who helps Shannon as needed. Town of Residence: [place], [place] Resides with: Alone Significant Other/Family: Out of area (Sons are in [facility]. Brother in [place] and sister in [place].) Employment Status: Unemployed Instrumental Activities of Daily Living (ADLs): Independent Medications Medication Management: No Issues/Barriers identified Physical Functioning/Mobility Assistive Device: walker Advance Directives Advance Directives: Do you have an Advance Directive: Y 10/08/17 12:28 AD On File at [facility]: Y 10/08/17 12:28 Date Asked 10/17/19 10/17/19 09:53 AD Date Reviewed 11/25/23 11/25/23 10:29 COLST On File at [facility] COLST Date Scanned Code Status Resuscitation Status Full Code Portal Pt does not currently have a portal and education provided: No Insurance Coverage/Financial Issues Insurance: Medicare [employer] Supplement Care Team Visit Care Team Role Provider Type Falguni Juarez MD, [place] Primary Care Provider [facility] Other Providers OTHER Alessandro Last DO Emergency Provider [facility] STAFF PHYSICIAN Khris Escalona Admit Provider NON-[facility] STAFF PHYSICIAN Attending Provider Discharge Potential Discharge Needs: PCP F/U Appt Anticipated Barriers to Discharge: None Identified Patient/Family Education Needs: Review discharge instructions, discuss Ask Me Three Transportation: Private vehicle Plan: Anticipate Shannon will be discharged home, possibly with new home health services for PT, when medically cleared. She will follow up with her PCP and plan of care and transport with a friend/family. CM will follow and continue to assess for discharge planning concerns. 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 Cantu Osteopenia (Acute) Hyperlipidemia (Acute) Hearing loss (Acute) Sensorineural hearing loss (SNHL) of both ears (Acute) Mixed conductive and sensorineural hearing loss, unilateral, right ear with restricted hearing on the contralateral side (Acute) Sensorineural hearing loss (SNHL) of left ear with restricted hearing of right ear (Acute) Nail dystrophy (Acute) Other hammer toe (acquired) (Acute) Surgical History Hx of tonsillectomy Extraction of cataract Family History Mother , 98 No problems noted. Father , 85 No problems noted. Sister No problems noted. Brother , 80 Heart disease Maternal Grandfather No problems noted. Paternal Grandfather No problems noted. Maternal Grandmother , CHILDBIRTH at age 40. No problems noted. Paternal Grandmother No problems noted. Brother Torticollis Sister Torticollis Son Hyperlipidemia Son No problems noted. Social History Smoking/Tobacco Use Status: Never Smoking risk assessment performed?: Yes Alcohol Intake: never Drug use: Never Substance use type: does not use Adopted: No Caregiver/Support person: No Foster care: No Household members: none Housing: condominium Number of Children: 2 number of grandchildren: 5 Communication Needs: None Education Level: college Do you need help understanding health information?: Rarely current occupation: Retired Pets and animals: No Sexually active: No Do you think of yourself as: straight/heterosexual Current gender identity: female What is your relationship status?: How often do you talk on the phone with friends or family?: three or more times per week How often do you get together with friends or relatives?: three or more times per week How often do you attend moravian or shinto services?: 4 or more times per year Do you belong to any clubs or organized social groups?: no Panel score (0-1 are the most socially isolated patients): 2 What type of physical activity do you participate in: none Duration: decline to answer Frequency: does not exercise Yesenia/Mosque: Caodaism Special yesenia needs: No Agree to transfusion: Yes Seatbelt use: always Drive intox or ride w/intox courier delivery driver: No Working smoke detector in home: Yes Carbon monox detector in home: Yes Firearms in home: No Do you feel safe at home: Yes Do you feel safe in your relationship?: Yes Victim of physical abuse: No Victim of emotional abuse: No Victim of sexual abuse: No SDOH(Care Management) Screening Will the Patient Participate in the Screening?: Yes Do you worry about having a steady place to live?: no In the past 12 months, have you had to go without electric, gas, oil or water in your home?: no Have you or anyone in your house had to go without enough food to eat?: no Has lack of transportation kept you from medical appointments or from doing things needed for daily living?: no Has anyone in your support network made you feel unsafe for any reason?: no
[2023-12-12] MEDS: Lidocaine 5% Patch 1 PATCH TP (09:34)
[2023-12-12] MEDS: Normal Saline Flush 10 ML SYR IVP (09:35)
[2023-12-12] MEDS: Multivitamin w/Minerals TAB 1 TAB PO (09:35)
[2023-12-12] MEDS: cefTRIAXone 1 GM VIAL IM (09:51)
--- NOTE | 2023-12-12 10:25 | IN_ITS ---
PT Notes Visit Reasons: Acute hyponatremia with falls and weakness Inpatient Physical Therapy Evaluation Date: 12/12/23 Referring Doctor: Dr. Khris Escalona PT Orders: PT CONSULT: exacerbation of chronic condition; frequent falls with spinal stenosis Precautions: fall, standard Patient Profile/Admitting Diagnosis: Shannon is an 88-year-old female patient with a history of advancing spinal stenosis, with increased weakness and recent falls. She presented to the ED twice yesterday due to falls at home, and was subsequently admitted for medical management. PMHX: h/o bilat knee replacements, chronic LBP with spinal stenosis and radicular symptoms to E Social History Home Situation: Patient resides in senior housing at [facility]. She has elevator access. Typically ambulates with FWW. Independent with ADLs. Equipment Owned/DME: FWW, handicap accessible apartment Subjective: Shannon states that her back hurts every time she stands. She does not recall anything that set it off, but reports two falls yesterday as a result. Reports pain in low back, right hip, and down right leg the the knee. Endorses tingling in right thigh, but no numbness. Objective: General Observation: Resting in bed with no lines. Mental Status: Alert. States that her nurse told her she's at [facility], but states I don't recognize anything about it. Does recall falling yesterday, but unable to provide specifics about circumstances. Pain: bad in standing. Reports no pain while lying in bed. ROM: Right Upper Extremity: WFL Left Upper Extremity: WFL Right Lower Extremity: Hip flexion 120* with pain relief. ER 40*. Knee motion allows 0-120*. Left Lower Extremity: grossly WFL for hip and knee Strength: Right Upper Extremity: Shoulder flexion 3/5 or greater. Biceps 4/5. Triceps 4/5. Managing Manager is weak. Left Upper Extremity: Shoulder flexion 3/5 or greater. Biceps 4/5. Triceps 4/5. Partial donations attendant only due to arthritic changes of the hands. Right Lower Extremity: Hip flexion 4-/5. Quads 4/5. Ankle DF 5/5. EHL 4/5. Left Lower Extremity: Hip flexion 4-/5. Quads 4+/5. Ankle DF 5/5. EHL 4/5. Sensation: intact distally. No dermatomal sensory loss. Bed Mobility/Transfers: supine-sit: supervision, with increased time to perform sit-stand: CGA stand-sit: CGA Gait: Initially declines ambulation due to pain. Performed flexion based stretching (as noted below) and set walker lower to facilitate subtle trunk flexion, at which point she is able to ambulate 6' with FWW, CGA without increase in pain. Declines further ambulation. Balance: Static Sitting: good Dynamic Sitting: good Static Standing: fair Dynamic Standing: fair Special Tests: Mobility Limitations Standardized Measure [facility]-PAC 6 clicks Basic Mobility Inpatient Short Form: Raw Score: 20 CMS Score: 36% impairment Informed Consent/Education: Patient instructed in purpose of PT consult and plan of care. Treatment: Initial evaluation (47997) Therapeutic exercises (11860): Instructed in the following Assisted with single [id number] stretching and piriformis stretching, 30 seconds each Applied manual lumbar traction via leg pull on the right and will get symptomatic relief Instructed in hook lying bridging 5 reps, good tolerance Instructed in seated march, 5 reps, significant fatigue Assessment: Patient is an 88 year old female referred to physical therapy services with diagnosis of spinal stenosis with chronic pain and frequent falls. Patient presents with clinical signs and symptoms consistent with diagnosis. She responded favorably to flexion-based stretching today, and tolerated ambulation with less pain with walker set low to facilitate subtle trunk flexion. Her pain remains poorly managed, and anticipate significant improvements in mobility as her pain improves. Her AM-PAC scores are supportive of return to community upon discharge, assuming her pain is better managed. Will continue with flexion-based stretching and progressive ambulation for pain relief, in combination with medical management. She currently demonstrates the following impairment level findings: 1. Acute on chronic pain 2. Decreased lower extremity strength 3. Fear avoidance behaviors 4. Decreased trunk range of motion, with intolerance to trunk extension Impairments are contributing to the following functional limitations: 1. Unable to independently ambulate 2. Fear avoidance behaviors 3 increased risk for fall. Patient is assessed as Low 25535 complexity based on the following: History: As above. Complicated by fear avoidance behaviors. Examination: functional limitations as noted above Presentation: stable Decision Making: low Goals: Goals X1 week 1. Supine-Sit : supervision 2. Sit-Supine : supervision 3. Sit-Stand : supervision 4. Stand-Sit : supervision 5. Bed-Chair : supervision with FWW 6. Chair-Bed : supervision with FWW 7. Gait : supervision with FWW x100' Plan of Care/Treatment Plan: 1-2x/day, 7 days/week x 1 week. Plan of care has been reviewed with the PAN HELPER providing the service under Physical Therapy direction. Initiate Physical Therapy intervention for strengthening, bed mobility, transfers, gait, stairs, balance training, use of assistive device. Continue with flexion-based stretching for pain relief. DISCHARGE RECOMMENDATIONS: Home with services ( PT) TREATMENT CODE/TIME: [id number] (16625, [id number]) Priti Haq, PT, DPT [facility] Please sign an return this page within 30 days if you agree with the above POC. Thank you! 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 Cantu Osteopenia (Acute) Hyperlipidemia (Acute) Hearing loss (Acute) Sensorineural hearing loss (SNHL) of both ears (Acute) Mixed conductive and sensorineural hearing loss, unilateral, right ear with restricted hearing on the contralateral side (Acute) Sensorineural hearing loss (SNHL) of left ear with restricted hearing of right ear (Acute) Nail dystrophy (Acute) Other hammer toe (acquired) (Acute) Surgical History Hx of tonsillectomy Extraction of cataract
[2023-12-12 10:55] LABS: HCT 29.8 % (36.0-46.0); HGB 10.1 g/dL (11.2-15.7); MCH 27.4 pg (27.0-33.0); MCHC 33.9 % (32.0-36.0); MCV 81 fL (80-95); MPV 7.4 fL (8.0-11.0); Platelet Count 192 10^3/uL (130-400); RBC 3.68 10^6/uL (3.93-5.22); RDW 13.8 % (11.7-14.6); RDW-SD 40.4 fL; WBC 11.28 10^3/uL (4.4-10.8)
[2023-12-12 11:10] LABS: ALT 18 U/L (14-59); AST 15 U/L (15-37); Albumin 3.1 g/dL (3.4-5.0); Alkaline Phosphatase 111 U/L (46-116); BUN 22 mg/dL (7-18); Bilirubin, Total 0.49 mg/dL (0.2-1.0); CO2 27.9 mmol/L (21.0-32.0); CREATININE 0.7 mg/dL (0.55-1.02); Calcium 9.4 mg/dL (8.5-10.1); Estimated GFR 83.13 (mL/min/1.73m2); Glucose 111 mg/dL (74-106); Magnesium 1.9 mg/dL (1.8-2.4); Total Protein 7.3 g/dL (6.4-8.2)
[2023-12-12 11:25] LABS: Anion Gap 5.1 mmol/L (3-11); Chloride 90 mmol/L (98-107); Potassium 3.8 mmol/L (3.5-5.1)
[2023-12-12 11:30] LABS: Sodium 123 mmol/L (136-145)
--- NOTE | 2023-12-12 14:30 | NUR.NOTE ---
Nursing Note: SPoke to Hospitalist, who recommended holding the heparin until after the urgent head CT.
--- NOTE | 2023-12-12 16:05 | W.PM.PROGNOT ---
Date of Service Date of service: 12/12/23 Time of Service: 16:06 Assessment and Plan Assessment and plan (1) Hyponatremia: Status: Acute Assessment and plan: given 1 liter of NS with slow improvement overnight awaiting urine sodium level and urine osmolality, consider free water restriction, encourage appropriate PO intake TSH 1.46, recent steroid use, toast and tea diet, mild dehydration (2) Fall: Status: Acute Assessment and plan: fall precautions PT consult walker at all times for gait safety and stability. Qualifiers: Encounter type: subsequent encounter Qualified Code(s): W19.XXXD - Unspecified fall, subsequent encounter (3) Leukocytosis (leucocytosis): Status: Acute Assessment and plan: suspect d/t recent falls/trauma. no source of infection identified, continue to monitor for. normalizing overnight, no fever. continue to trend Urine culture pending Qualifiers: Leukocytosis type: other Qualified Code(s): D72.828 - Other elevated white blood cell count (4) UTI (urinary tract infection): Status: Suspected Assessment and plan: received ceftriaxone 1 gm IM cultures pending has no symptoms, no fever, -- will hold off on further antibiotics at this time until cultures returned, may consider one dose of fosfomycin (can be given tomorrow as she received ceftriaxone today). Qualifiers: Hematuria presence: with hematuria Urinary tract infection type: acute cystitis Qualified Code(s): N30.01 - Acute cystitis with hematuria (5) Acute right hip pain: Status: Acute Assessment and plan: Imaging negative for acute fracture with recent falls. PT for evaluation and treatment. (6) Spinal stenosis of lumbar region: Status: Chronic Assessment and plan: PT evaluation for safety and possibly assisted ambulation at home. consider MRI LS spine discussed with DR Browne Qualifiers: Neurogenic claudication status: without neurogenic claudication Qualified Code(s): M48.061 - Spinal stenosis, lumbar region without neurogenic claudication Subjective Subjective Patient reports: no new complaints, feels better, tolerating liquids well, tolerating a regular diet, voiding w/o difficulty and afebrile; denies shortness of breath Interval history since last seen: Patient removed to intravenous access lines today stating she does not take prescription medications she is on medicine going through her veins. She denies any saddle anesthesia or loss of bowel or bladder function. She did get up and ambulate with physical therapy this morning. Hemodynamically she has been stable she denies any urinary symptoms, denies any frequency urgency but does state that her p.o. intake is poor secondary to not wanting to get up to go to the bathroom because of how weak her legs are. She does admit to drinking 3-4 bottles of water while at home stating that was the weight watchers way and that her appetite has been extremely poor over the past week or 2 and that she has not had substantial food and will only drink water coffee or tea. Exam Narrative Exam Narrative: Elderly female of stated age in no acute distress sitting up in her recliner her head is atraumatic eyes nonicteric noninjected EOMs intact oral mucosa is slightly dry neck with no JVD cardiovascular regular rate and rhythm her respirations are even and unlabored abdomen is soft nontender with positive bowel sounds her extremities are without edema she moves all extremities equally. Psychiatric normal mood and affect neurologic she is awake alert oriented no focal deficits does provide consistent history some evidence of memory impairment but no overt confusion noted Objective Last Vital Signs Temp 36.9 C 12/12/23 15:11 Pulse 79 12/12/23 15:11 Resp 16 12/12/23 15:11 BP 110/52 L 12/12/23 15:11 Pulse Ox 99 12/12/23 15:11 Laboratory Results - last 24 hr 12/11/23 12/11/23 12/11/23 22:19 22:25 23:16 WBC 18.14 H RBC 3.87 L Hgb 10.8 L Hct 30.9 L MCV 80 MCH 27.9 MCHC 35.0 RDW 13.9 Plt Count 223 MPV 7.4 L Immature Gran % 0.0 Neutrophils % 42.0 Lymphocytes % 48.0 Atypical Lymphs % 3 Monocytes % 7.0 Eosinophils % 0.0 Basophils % 0.0 Nucleated RBC % 0.0 Absolute Neutrophils 7.62 H Absolute Lymphocytes 9.25 H Absolute Monocytes 1.27 H Absolute Eosinophils 0.00 Absolute Basophils 0.00 RBC Morphology Normal VBG pH 7.39 VBG pCO2 43 VBG pO2 43 VBG HCO3 26 VBG Total CO2 24 VBG O2 Saturation 79 VBG Base Excess 1 Sodium 117 L* Potassium 4.1 Chloride 83 L Carbon Dioxide 26.4 Anion Gap 7.6 BUN 38 H Creatinine 0.9 Est GFR (CKD-EPI 2020) 61.49 Glucose 145 H Calcium 9.7 Magnesium Total Bilirubin 0.54 AST 16 ALT 21 Alkaline Phosphatase 125 H Creatine Kinase 106 Troponin I 50 47 Total Protein 8.1 Albumin 3.5 TSH 1.49 Urine Color Yellow Urine Clarity Sl Cloudy Urine pH 7.0 Ur Specific [place] 1.025 Urine Protein 100 H Urine Ketones 40 H Urine Blood Trace-intact H Urine Nitrite Negative Urine Bilirubin Negative Urine Urobilinogen 0.2 Ur Leukocyte Esterase Small H Ur Random Sodium Ur Random Potassium Urine Glucose 100 H COVID-19 Source Nasopharynx SARS-CoV-2 (PCR) Negative Influenza Type A (PCR) Negative Influenza Type B (PCR) Negative RSV (PCR) Negative 12/12/23 12/12/23 12/12/23 00:28 01:31 10:40 WBC 11.28 H RBC 3.68 L Hgb 10.1 L Hct 29.8 L MCV 81 MCH 27.4 MCHC 33.9 RDW 13.8 Plt Count 192 MPV 7.4 L Immature Gran % Neutrophils % Lymphocytes % Atypical Lymphs % Monocytes % Eosinophils % Basophils % Nucleated RBC % Absolute Neutrophils Absolute Lymphocytes Absolute Monocytes Absolute Eosinophils Absolute Basophils RBC Morphology VBG pH VBG pCO2 VBG pO2 VBG HCO3 VBG Total CO2 VBG O2 Saturation VBG Base Excess Sodium 122 L* 123 L* Potassium 4.3 3.8 Chloride 89 L 90 L Carbon Dioxide 25.9 27.9 Anion Gap 7.1 5.1 BUN 37 H 22 H Creatinine 0.7 0.7 Est GFR (CKD-EPI 2020) 83.13 83.13 Glucose 114 H 111 H Calcium 9.1 9.4 Magnesium 1.9 Total Bilirubin 0.49 AST 15 ALT 18 Alkaline Phosphatase 111 Creatine Kinase Troponin I 49 Total Protein 7.3 Albumin 3.1 L TSH Urine Color Urine Clarity Urine pH Ur Specific [place] Urine Protein Urine Ketones Urine Blood Urine Nitrite Urine Bilirubin Urine Urobilinogen Ur Leukocyte Esterase Ur Random Sodium 19 Ur Random Potassium 29.2 Urine Glucose COVID-19 Source SARS-CoV-2 (PCR) Influenza Type A (PCR) Influenza Type B (PCR) RSV (PCR) Time Spent with Patient Time Spent with Patient: 35-49 minutes Time was spent: preparing to see the patient(eg.review tests), [facility] and[facility]or [facility], ordering medications,tests, procedures, indepentently interpreting results and counseling the patient
[2023-12-12] MEDS: Acetaminophen 325 MG TAB 650 MG PO (16:30)
[2023-12-12 22:00] LABS: Osmolality Serum 251 mOsm/kg (275-295)
[2023-12-13 06:52] LABS: Abs Immature Grans 0.03 10^3/uL (0.0-0.06); Absolute Basophil Count 0.02 10^3/uL (0.0-0.2); Absolute Eosinophil Count 0.02 10^3/uL (0.0-0.7); Absolute Lymphocyte Count 6.86 10^3/uL (1.2-3.4); Absolute Monocyte Count 0.43 10^3/uL (0.1-0.8); Absolute Neutrophil Count 2.98 10^3/uL (1.2-6.7); Basophils % 0.2 %; Eosinophils % 0.2 %; HCT 29.1 % (36.0-46.0); HGB 9.9 g/dL (11.2-15.7); Immature Grans % 0.3 %; Lymphocytes % 66.3 %; MCV 82 fL (80-95); MPV 7.7 fL (8.0-11.0); Monocytes % 4.2 %; Neutrophils % 28.8 %; Platelet Count 179 10^3/uL (130-400); RBC 3.54 10^6/uL (3.93-5.22); RDW 14.2 % (11.7-14.6); RDW-SD 41.9 fL; WBC 10.34 10^3/uL (4.4-10.8)
[2023-12-13 07:11] LABS: Anion Gap 5.5 mmol/L (3-11); BUN 21 mg/dL (7-18); CO2 28.5 mmol/L (21.0-32.0); CREATININE 0.7 mg/dL (0.55-1.02); Calcium 9.4 mg/dL (8.5-10.1); Chloride 91 mmol/L (98-107); Estimated GFR 83.13 (mL/min/1.73m2); Glucose 133 mg/dL (74-106); Potassium 3.6 mmol/L (3.5-5.1); Sodium 125 mmol/L (136-145)
[2023-12-13 07:38] VITALS: BP 111/47; PULSE 75; RESP 18; TEMP 36.2; O2SAT 97
[2023-12-13] MEDS: Acetaminophen 325 MG TAB 650 MG PO ×4 (09:13→19:49)
[2023-12-13] MEDS: Lidocaine 5% Patch 1 PATCH TP (09:15)
[2023-12-13] MEDS: Multivitamin w/Minerals TAB 1 TAB PO (09:15)
[2023-12-13] MEDS: Normal Saline Flush 10 ML SYR IVP ×3 (09:15→19:48)
[2023-12-13] MEDS: Patch Removal 1 EACH TD (09:21)
[2023-12-13 10:38] VITALS: PULSE 77
[2023-12-13 11:57] VITALS: BP 117/56; PULSE 73; RESP 17; TEMP 36.2; O2SAT 100
[2023-12-13] MEDS: Normal Saline 1,000 ML 100 ML IV ×2 (12:02→22:45)
--- NOTE | 2023-12-13 12:51 | PT.INTREAT ---
Date of service: 12/13/23 Time of Service: 11:10 PT Notes Visit Reasons: Acute hyponatremia with falls and weakness Inpatient Physical Therapy Treatment Note [facility] Date: 12/13/2023 PRECAUTIONS: fall, standard SUBJECTIVE: Stated she is still very fearful of her right leg giving out on her when walking. Not as painful post exercises. Feels she is moving a little better today. No pain with bed mobility with HOB at 20 degrees and core engagement. OBJECTIVE: ? PAIN: Indicated pain level has been about a 6 out of 10 this morning, but no pain with bed mobility or walking post exercises. Indicated this is the best her pain has been since being hospitialized. Therapeutic Activities (08902w3): Direct one-on-one instruction in dynamic activities to improve functional performance. ?? Up in chair when I arrived to room today. Did ambulation chair to bed to perform stretches and exercises. Utilized a flexion based approach as instructed by supervising PT. ? BED MOBILITY/TRANSFERS? Rolling L/R: SBA to the right, with cueing to activation core Supine-sit: Min assist with HOB at 20 degrees, with cueing for activation of core.? Sit-supine: SBA, with verbal cueing? Sit-stand: ?CGA, with verbal cueing? Stand-sit: SBA, with verbal cueing ? Provided skilled cues and instruction on performance and technique throughout. ? GAIT? Assistive Device: FWW? Weight bearing: Full Assist: CGA, due to patient's fear that right left would give out on her ? Distance:? 8ft chair to bed and 25ft bed to chair, post exercises in supine. ? Deviation: Slow, well controlled gait pattern with UE reliance on walk. ? Exercises: In supine ? Performed assisted right single knee to chest stretch x 30 seconds for 3 reps, right piriformis stretch for 30 seconds x 3 reps, gentle right leg pull, as well as performance of hook lying bridging x 5 reps and hook lying marching for 10 reps each. Focus on TA activation with exercises. ? Provided skilled instruction in proper exercise performance Provided skilled manual cues to facilitate proper muscle recruitment and/or form ASSESSMENT:? Tolerated all activity very well today. Indicated she tends to lean forward in her chair when her back bothers and this is helpful. PLAN: Continue to focus on improved ADL function and reduction in right LE irritation. TREATMENT CODE/TIME: 73306, 11:10 to 11:30 (20') DISCHARGE RECOMMENDATION: Home with services ( PT)
[2023-12-13 15:20] VITALS: BP 122/62; PULSE 75; RESP 18; TEMP 36.3; O2SAT 97
[2023-12-13] MEDS: Heparin 5,000 UNITS/ML VIAL 5000 UNITS SC ×2 (16:18→22:45)
[2023-12-13 17:03] LABS: Osmolality, Urine 509 mOsm/kg (150-1150)
--- NOTE | 2023-12-13 18:04 | PGE_ITS ---
Date of Service Date of service: 12/13/23 Time of Service: 18:04 Assessment and Plan Assessment and plan (1) Hyponatremia: Status: Acute Assessment and plan: NA 125 -IVF: NS at 100 cc/hr - denies CHF or ETHO abuse Fluid restriction 1l/ 24 hours Urine sodium 19- urine osmolality pending Confirmed toast and tea diet- will consider a trial for meals on wheels on d/c (2) Fall: Status: Acute Assessment and plan: fall precautions PT consult walker at all times for gait safety and stability. Qualifiers: Encounter type: subsequent encounter Qualified Code(s): W19.XXXD - Unspecified fall, subsequent encounter (3) Leukocytosis (leucocytosis): Status: Acute Assessment and plan: suspect d/t recent falls/trauma. no source of infection identified, continue to monitor for. normalizing overnight, no fever. continue to trend Urine culture pending Qualifiers: Leukocytosis type: other Qualified Code(s): D72.828 - Other elevated white blood cell count (4) UTI (urinary tract infection): Status: Suspected Assessment and plan: received ceftriaxone 1 gm IM cultures GNR in urine, Blood Cx negative X 24 hours Resume ceftriaxone but may consider one dose of fosfomycin pending further results Qualifiers: Urinary tract infection type: acute cystitis Hematuria presence: with hematuria Qualified Code(s): N30.01 - Acute cystitis with hematuria (5) Acute right hip pain: Status: Acute Assessment and plan: Imaging negative for acute fracture on admit PT consult (6) Spinal stenosis of lumbar region: Status: Chronic Assessment and plan: PT evaluation for safety and possibly assisted ambulation at home. Will consider MRI pending pain management VS outpatient discussed with DR Browne Qualifiers: Neurogenic claudication status: without neurogenic claudication Qualified Code(s): M48.061 - Spinal stenosis, lumbar region without neurogenic claudication Subjective Subjective Patient reports: no new complaints, tolerating liquids well, tolerating a regular diet, voiding w/o difficulty, flatus and no bowel movement; denies diarrhea, nausea, vomiting, shortness of breath or fever Exam Narrative Exam Narrative: Constitutional The patient is sitting in chair, without acute distress, easily irritated when reoriented HENMT: Head is atraumatic, normocephalic, no lymphadenopathy. Facial structures with normal appearance Eyes: Well aligned, intact ROM Neck: Normal ROM, no meningeal signs Neuro:alert and oriented to self, person, place ( [place] [facility]) time and situation. No neurological focal deficit, PERRLA on ambient light Chest:Chest is symmetrical and normal appearance Resp: Normal respiratory pattern, speaks in full sentences, unlabored breathing, clear lung bilaterally Cardio:telemetry SR 77, regular rhythm, S1, S2, no murmur GI: Abdomen is not distended, soft and non tender, bowel sounds are present : Negative Costovertebral angle tenderness, no bladder distension Back/spine/Pelvis: No back tenderness, normal alignment Integumentary: No skin lesions or rash Extremities: strength 5/5 to bilateral lower and upper extremities Psych: RASS 0, congruent to labile mood and normal affect. Objective Last Vital Signs Temp 36.3 C L 12/13/23 15:20 Pulse 75 12/13/23 15:20 Resp 18 12/13/23 15:20 BP 122/62 12/13/23 15:20 Pulse Ox 97 12/13/23 15:20 Laboratory Results - last 24 hr 12/13/23 05:55 WBC 10.34 RBC 3.54 L Hgb 9.9 L Hct 29.1 L MCV 82 MCH 28.0 MCHC 34.0 RDW 14.2 Plt Count 179 MPV 7.7 L Immature Gran % 0.3 Neutrophils % 28.8 Lymphocytes % 66.3 Monocytes % 4.2 Eosinophils % 0.2 Basophils % 0.2 Nucleated RBC % 0.0 Absolute Neutrophils 2.98 Absolute Lymphocytes 6.86 H Absolute Monocytes 0.43 Absolute Eosinophils 0.02 Absolute Basophils 0.02 Sodium 125 L Potassium 3.6 Chloride 91 L Carbon Dioxide 28.5 Anion Gap 5.5 BUN 21 H Creatinine 0.7 Est GFR (CKD-EPI 2020) 83.13 Glucose 133 H Calcium 9.4 Time Spent with Patient Time Spent with Patient: >50 minutes Time was spent: preparing to see the patient(eg.review tests), obtaining and/or reviewing separately otained hiistory, ordering medications,tests, procedures, referring, communicating with other health respite care provider, indepentently interpreting results, counseling the patient and care coordination
[2023-12-13 19:20] VITALS: BP 163/56; PULSE 79; RESP 18; TEMP 36.4; O2SAT 97
[2023-12-13] MEDS: cefTRIAXone 1 GM/50 ML BAG IVPB (19:48)
[2023-12-13] MEDS: Docusate Sodium 100 MG CAP PO (19:49)
[2023-12-13] MEDS: Lidocaine Patch Removal 1 EACH TD (19:50)
[2023-12-13] MEDS: Methocarbamol 500 MG TAB PO (22:46)
[2023-12-13 23:52] VITALS: BP 135/88; PULSE 84; RESP 18; TEMP 36.4; O2SAT 98
[2023-12-14 03:09] VITALS: BP 131/69; PULSE 87; RESP 18; TEMP 36.3; O2SAT 97
[2023-12-14 07:07] LABS: Abs Immature Grans 0.03 10^3/uL (0.0-0.06); Absolute Basophil Count 0.02 10^3/uL (0.0-0.2); Absolute Eosinophil Count 0.02 10^3/uL (0.0-0.7); Absolute Lymphocyte Count 4.79 10^3/uL (1.2-3.4); Absolute Monocyte Count 0.43 10^3/uL (0.1-0.8); Absolute Neutrophil Count 3.14 10^3/uL (1.2-6.7); Basophils % 0.2 %; Eosinophils % 0.2 %; HCT 26.9 % (36.0-46.0); HGB 9.2 g/dL (11.2-15.7); Immature Grans % 0.4 %; Lymphocytes % 56.8 %; MCH 27.8 pg (27.0-33.0); MCHC 34.2 % (32.0-36.0); MCV 81 fL (80-95); MPV 7.6 fL (8.0-11.0); Monocytes % 5.1 %; Neutrophils % 37.3 %; Platelet Count 147 10^3/uL (130-400); RBC 3.31 10^6/uL (3.93-5.22); RDW 14.3 % (11.7-14.6); RDW-SD 41.7 fL; WBC 8.43 10^3/uL (4.4-10.8)
[2023-12-14 07:07] LABS: Anion Gap 5.5 mmol/L (3-11); BUN 20 mg/dL (7-18); CO2 26.5 mmol/L (21.0-32.0); CREATININE 0.7 mg/dL (0.55-1.02); Calcium 9.1 mg/dL (8.5-10.1); Chloride 95 mmol/L (98-107); Estimated GFR 83.13 (mL/min/1.73m2); Glucose 121 mg/dL (74-106); Magnesium 1.7 mg/dL (1.8-2.4); Potassium 3.9 mmol/L (3.5-5.1); Sodium 127 mmol/L (136-145)
--- NOTE | 2023-12-14 07:47 | W.PALLCONSUL ---
Date of service: 12/14/23 Time of Service: 07:47 History of Present Illness History of Present Illness Chief Complaint: Memory issues; back pain Narrative: Shannon is an 88-year-old woman who has been my patient for approximately 25 years. She recently injured her back and was having fairly significant back pain. She also has been falling and increasing problems with memory. Unfortunately a few days back she fell and had significant memory changes. She went to the ER was found to be hyponatremic and admitted to the hospital. Her back is been treated with lidocaine patches which she feels does help. She also has been given IV fluid and ceftriaxone. Daytime's have been good, but nighttime's have been difficult. She has pulled out her IVs nursing describes her as [id number] at times. She did call her son today at 5 AM due to mental status changes. She could not remember my name but when I gave her my first name she was able to tell me my last name. She knew that I was her doctor. She was oriented towards person but she thought she was in her condominium. She made up a fairly elaborate story as to why she was in a hospital bed and had IV fluids Assessment and Plan Assessment and plan (1) Anemia: Status: Chronic (2) Hyponatremia: Status: Acute (3) Sacroiliac dysfunction: Status: Acute (4) Sacro ilial pain: Status: Acute (5) Back pain: Status: Acute Assessment and plan: Back pain?she is feeling better and I am happy about this. I am not certain how much of this is positional. Sundowning again I have known her for 25 years and have never known her to have difficulty with memory etc. I am sure a lot of it has to do with her anxiety but also in a recent office exam she did not have good memory of her 3 words given to her or her clock. I would suggest getting rid of the heart monitor as it is 1 more thing to get in her way and to contribute to We did talk about CODE STATUS and she reiterated that she is DNR DNI. I did find an old COLST form in her file from 2019 where she also stated that she was a DNR/DNI. I have given this information to the hospitalist Future plans?she talked about going to [facility]. I am not certain that she can go directly from the hospital to [facility]. I think she may need a short-term rehab to make sure that her back is doing better and that she is not a fall risk. Her son was in the room during our time together and he heard his mom talk about how she was in her condo. He understood her memory changes. There is going to be a family meeting to help with all of this. Anemia?this will need further investigation. She needs to have heme testing of her stools. Also I would recommend an SPEP since she has back pain Review of Systems Narrative: Stated that her back was better. She knows she is having memory problems but thinks it has to do with stress and pain. PFSH All Active Problems Sacroiliac dysfunction (Acute) Anemia (Chronic) Upper respiratory infection (Acute) Falls frequently (Acute) Weakness (Acute) Hyponatremia (Acute) Leukocytosis (leucocytosis) (Acute) Back pain (Acute) Fall (Acute) Hyponatremia (Acute) Spinal stenosis of lumbar region (Chronic) Acute right hip pain (Acute) Sacro ilial pain (Acute) Other hammer toe (acquired) (Acute) Nail dystrophy (Acute) Sensorineural hearing loss (SNHL) of left ear with restricted hearing of right ear (Acute) Mixed conductive and sensorineural hearing loss, unilateral, right ear with restricted hearing on the contralateral side (Acute) Sensorineural hearing loss (SNHL) of both ears (Acute) Hearing loss (Acute) Hyperlipidemia (Acute) Osteopenia (Acute) 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 Cantu Surgical History Hx of tonsillectomy Extraction of cataract Family History Mother , 98 No problems noted. Father , 85 No problems noted. Sister No problems noted. Brother , 80 Heart disease Maternal Grandfather No problems noted. Paternal Grandfather No problems noted. Maternal Grandmother , CHILDBIRTH at age 40. No problems noted. Paternal Grandmother No problems noted. Brother Torticollis Sister Torticollis Son Hyperlipidemia Son No problems noted. Social History Smoking/Tobacco Use Status: Never Smoking risk assessment performed?: Yes Alcohol Intake: never Drug use: Never Substance use type: does not use Adopted: No Caregiver/Support person: No Foster care: No Household members: none Housing: condominium Number of Children: 2 number of grandchildren: 5 Communication Needs: None Education Level: college Do you need help understanding health information?: Rarely current occupation: Retired Pets and animals: No Sexually active: No Do you think of yourself as: straight/heterosexual Current gender identity: female What is your relationship status?: How often do you talk on the phone with friends or family?: three or more times per week How often do you get together with friends or relatives?: three or more times per week How often do you attend orthodoxy or caodaism services?: 4 or more times per year Do you belong to any clubs or organized social groups?: no Panel score (0-1 are the most socially isolated patients): 2 What type of physical activity do you participate in: none Duration: decline to answer Frequency: does not exercise Yesenia/Restorationism: Anabaptist Special yesenia needs: No Agree to transfusion: Yes Seatbelt use: always Drive intox or ride w/intox lyft driver: No Working smoke detector in home: Yes Carbon monox detector in home: Yes Firearms in home: No Do you feel safe at home: Yes Do you feel safe in your relationship?: Yes Victim of physical abuse: No Victim of emotional abuse: No Victim of sexual abuse: No Exam Narrative Exam Narrative: Shannon is very talkative. She remembers many things in the past precisely but not oriented towards place. She is very happy that her son is here. She is ready to give up control of her finances. Her heart was regular. Her lungs were clear. She had some tenderness over the right sacroiliac. She is unable to have her leg straight but when it supported under her knee she feels good. Results Last Vital Signs Temp 97.3 F L 12/14/23 03:09 Pulse 87 12/14/23 03:09 Resp 18 12/14/23 03:09 BP 131/69 12/14/23 03:09 Pulse Ox 97 12/14/23 03:09 Labs 12/14/23 06:45 12/14/23 06:47 Labs: Laboratory Results - last 24 hr 12/14/23 12/14/23 06:45 06:47 WBC 8.43 RBC 3.31 L Hgb 9.2 L Hct 26.9 L MCV 81 MCH 27.8 MCHC 34.2 RDW 14.3 Plt Count 147 MPV 7.6 L Immature Gran % 0.4 Neutrophils % 37.3 Lymphocytes % 56.8 Monocytes % 5.1 Eosinophils % 0.2 Basophils % 0.2 Nucleated RBC % 0.0 Absolute Neutrophils 3.14 Absolute Lymphocytes 4.79 H Absolute Monocytes 0.43 Absolute Eosinophils 0.02 Absolute Basophils 0.02 Sodium 127 L Potassium 3.9 Chloride 95 L Carbon Dioxide 26.5 Anion Gap 5.5 BUN 20 H Creatinine 0.7 Est GFR (CKD-EPI 2020) 83.13 Glucose 121 H Calcium 9.1 Magnesium 1.7 L Laboratory Tests 12/13/23 12/14/23 12/14/23 05:55 06:45 06:47 Hct 29.1 L 26.9 L Sodium 125 L 127 L Magnesium 1.7 L Imaging Additional studies: Cervical Spine CT BONES: Vertebral body heights are maintained. Alignment is normal. There is no evidence of acute fracture. Degenerative disc changes and facet degenerative changes are seen . SOFT TISSUES: No paraspinal hematoma. The airway appears intact. No pneumothorax is seen at the lung apices. IMPRESSION: Head CT: No acute abnormality. Time Spent Time Spent with Patient Time Spent(min): 48
[2023-12-14 08:04] VITALS: BP 174/66; PULSE 70; RESP 16; TEMP 37.1; O2SAT 99
[2023-12-14] MEDS: Lidocaine 5% Patch 1 PATCH TP (08:05)
[2023-12-14] MEDS: Acetaminophen 325 MG TAB 650 MG PO ×4 (08:09→20:05)
[2023-12-14] MEDS: Docusate Sodium 100 MG CAP PO ×3 (08:10→20:05)
[2023-12-14] MEDS: Normal Saline Flush 10 ML SYR IVP ×2 (08:10→20:10)
[2023-12-14] MEDS: Multivitamin w/Minerals TAB 1 TAB PO (08:10)
--- NOTE | 2023-12-14 09:59 | PTTR_ITS ---
PT Notes Visit Reasons: Acute hyponatremia with falls and weakness Inpatient Physical Therapy Treatment Note [facility] Date: 12/14/2023 PRECAUTIONS: Standard. Falls. Activity as tolerated. SUBJECTIVE: Complains of heaviness and pain in R leg. Reported pain in the R knee after in- room ambulation using walker. Looks over at son for every answer to questions PT asked. OBJECTIVE: Mental: Appears to have difficulty answering questions about how she fell. Son answerin g for her during the quick interview. Appears acutely confused. ? PAIN: Moderate pain in R knee after short-distance ambulation; Pain in R hip wit bending beyond 90 degrees ? BED MOBILITY/TRANSFERS: Moderate cueing provided for use of B hands as needed for support, movement sequence, AD management, and posture to reduce fall risk and minimize pain report ? Sit-stand: ?contact guard assist with moderate cueing for hand placement? Stand-sit: ?contact guard assist with moderate cueing for hand placement? GAIT? ? Moderate cueing provided for movement sequence, AD management, and posture to reduce fall risk and minimize pain report? Assistive Device: FWW? Weight bearing: FWB Assist: Minimal assist due to pain report in R knee ? Distance:?10 steps from recliner to edge of bed ? Deviation: Hesitant steps, no full extension on B knees, asymmetric steps, slowed zenobia ? ASSESSMENT:? Acutely confused. Bothered by pain in R knee and hip. Nurse made aware. PLAN: Progress mobility level, strength, and balance as tolerated. Address pain issues to facilitate functional progression. DISCHARGE RECOMMENDATION: HH PT vs Short-term SNF based on progress towards goals TREATMENT CODE/TIME: 74294 x 33 minutes for 2 units ( 9:59-10:32).
[2023-12-14] MEDS: MAGNESIUM SULFATE 2 GM/50 ML BAG IVINF (10:55)
--- NOTE | 2023-12-14 13:25 | CMPROGNOTE_ITS ---
Date of service: 12/14/23 Time of Service: 13:26 Care Management Progress Note Progress Note Text Progress Note Text: Shannon was sitting up in her chair when CM met with him. Her son, Khris was visiting. Shannon stated that one of her biggest concerns was that she was not eating at home; CM discussed MOW, which she was hesitant about, but it is important for her to return home, therefore she requested that a referral be sent. CM also discussed Shannon having more support at home; Shannon is happy to have HH services (RN, PT, OT, STRADDLE BUGGY OPERATOR), and will consider private caregivers, as well. CM will provide information on private caregiver agencies. CM sent a referral to [facility] for MOW as well as private caregiver support. Shannon and her son are working on an application for [facility] in [place], to give her more support; this is a longer term plan, as they understand it may take a while to complete this process. CM will continue to follow. Discharge Potential Discharge Needs: PCP F/U Appt Anticipated Barriers to Discharge: None Identified Patient/Family Education Needs: Review discharge instructions, discuss Ask Me Three Transportation: Private vehicle Plan: Anticipate Shannon will be discharged home, possibly with new home health services for PT, when medically cleared. She will follow up with her PCP and plan of care and transport with a friend/family. CM will follow and continue to assess for discharge planning concerns. SDOH(Care Management) Screening Will the Patient Participate in the Screening?: Yes Do you worry about having a steady place to live?: no In the past 12 months, have you had to go without electric, gas, oil or water in your home?: no Have you or anyone in your house had to go without enough food to eat?: no Has lack of transportation kept you from medical appointments or from doing things needed for daily living?: no Has anyone in your support network made you feel unsafe for any reason?: no
[2023-12-14] MEDS: Heparin 5,000 UNITS/ML VIAL 5000 UNITS SC (13:58)
[2023-12-14 15:09] VITALS: BP 124/64; PULSE 86; RESP 18; TEMP 37; O2SAT 96
--- NOTE | 2023-12-14 16:06 | PGE_ITS ---
Date of Service Date of service: 12/14/23 Time of Service: 11:45 Assessment and Plan Assessment and plan (1) Hyponatremia: Status: Acute Assessment and plan: Continue -IVF: NS at 100 cc/hr Na 127 - denies CHF or ETHO abuse Continue fluid restriction 1l/ 24 hours Urine sodium 19- urine osmolality 509 most likely not SIADH might be d/t confirmed toast and tea diet- will consider a trial for meals on wheels on d/c Reamis confused and might benefit from STR on discharge (2) Fall: Status: Acute Assessment and plan: Continue fall precautions PT consult ongoing Continue to use walker at all times for gait safety and stability. Qualifiers: Encounter type: subsequent encounter Qualified Code(s): W19.XXXD - Unspecified fall, subsequent encounter (3) Leukocytosis (leucocytosis): Status: Acute Assessment and plan: Resolved suspect d/t recent falls/trauma. no source of infection identified, continue to monitor for. normalizing overnight, no fever. continue to trend Urine culture w GNR- on ceftriaxone Qualifiers: Leukocytosis type: other Qualified Code(s): D72.828 - Other elevated white blood cell count (4) UTI (urinary tract infection): Status: Suspected Assessment and plan: cultures GNR in urine, Blood Cx negative X 48 hours Continue ceftriaxone but may consider one dose of fosfomycin when speciety available Qualifiers: Hematuria presence: with hematuria Urinary tract infection type: acute cystitis Qualified Code(s): N30.01 - Acute cystitis with hematuria (5) Acute right hip pain: Status: Acute Assessment and plan: Imaging negative for acute fracture on admit PT consult ongoing Continue scheduled APAP (6) Spinal stenosis of lumbar region: Status: Chronic Assessment and plan: PT evaluation for safety and possibly assisted ambulation at home. Will consider MRI pending pain management VS outpatient Continue lidocaine patch and acetaminophen Qualifiers: Neurogenic claudication status: without neurogenic claudication Qualified Code(s): M48.061 - Spinal stenosis, lumbar region without neurogenic claudication (7) Palliative care encounter: Status: Acute Assessment and plan: Palliative consult completed. Please read notes COLTS form completed discussed with Dr Begum Subjective Subjective Patient reports: no new complaints, tolerating liquids well, tolerating a regular diet, no flatus, no bowel movement and other (Reports knowing having memory problems ); denies diarrhea, nausea, vomiting, shortness of breath or fever Exam Narrative Exam Narrative: Constitutional The patient is sitting in chair, without acute distress Eyes: intact ROM Neuro:alert and oriented to self, person, non- focal Resp:Unlabored breathing, clear lung bilaterally Cardio:telemetry SR , regular rhythm, S1, S2, no murmur GI: Abdomen is not distended, soft and non tender, bowel sounds are present : Negative Costovertebral angle tenderness, no bladder distension Integumentary: No skin lesions or rash Extremities: strength 5/5 to bilateral lower and upper extremities Psych: RASS 0, congruent to labile mood and normal affect, distress at time when verbalizes having memory problems Objective Last Vital Signs Temp 37.0 C 12/14/23 15:09 Pulse 86 12/14/23 15:09 Resp 18 12/14/23 15:09 BP 124/64 12/14/23 15:09 Pulse Ox 96 12/14/23 15:09 Laboratory Results - last 24 hr 12/11/23 12/12/23 12/14/23 22:19 01:31 06:45 WBC 8.43 RBC 3.31 L Hgb 9.2 L Hct 26.9 L MCV 81 MCH 27.8 MCHC 34.2 RDW 14.3 Plt Count 147 MPV 7.6 L Immature Gran % 0.4 Neutrophils % 37.3 Lymphocytes % 56.8 Monocytes % 5.1 Eosinophils % 0.2 Basophils % 0.2 Nucleated RBC % 0.0 Absolute Neutrophils 3.14 Absolute Lymphocytes 4.79 H Absolute Monocytes 0.43 Absolute Eosinophils 0.02 Absolute Basophils 0.02 Sodium Potassium Chloride Carbon Dioxide Anion Gap BUN Creatinine Est GFR (CKD-EPI 2020) Glucose Serum Osmolality 251 L Calcium Magnesium Urine Osmolality 509 Ur Random Chloride 15 12/14/23 06:47 WBC RBC Hgb Hct MCV MCH MCHC RDW Plt Count MPV Immature Gran % Neutrophils % Lymphocytes % Monocytes % Eosinophils % Basophils % Nucleated RBC % Absolute Neutrophils Absolute Lymphocytes Absolute Monocytes Absolute Eosinophils Absolute Basophils Sodium 127 L Potassium 3.9 Chloride 95 L Carbon Dioxide 26.5 Anion Gap 5.5 BUN 20 H Creatinine 0.7 Est GFR (CKD-EPI 2020) 83.13 Glucose 121 H Serum Osmolality Calcium 9.1 Magnesium 1.7 L Urine Osmolality Ur Random Chloride Time Spent with Patient Time Spent with Patient: >50 minutes Time was spent: preparing to see the patient(eg.review tests), obtaining and/or reviewing separately otained hiistory, ordering medications,tests, procedures, referring, communicating with other health career education teacher, indepentently interpreting results, counseling the patient and care coordination
--- NOTE | 2023-12-14 16:34 | PT.INTREAT ---
PT Notes Visit Reasons: Acute hyponatremia with falls and weakness Inpatient Physical Therapy Treatment Note [facility] Date: 12/14/2023 PRECAUTIONS: fall, standard SUBJECTIVE: Pt reports she is feeling well. She denied any back or knee pain when approached for PT. son reports he does not use her FWW as often as she should. Pt reports she uses a cane when she goes to the store. Pt reports she continues to drive and cooks her own meals. OBJECTIVE: Pt seated in chair with chiar alarm in place visiting with her son and a friend. Pt agreeable to participate. ? PAIN: pt reported no pain at start of session after performing bed mobility supine to from sit x 5 reps she reported right anterior hip ( along hip flexor and adductor) then posterior right knee after attempting SLR Therapeutic Activities (75535): Direct one-on-one instruction in dynamic activities to improve functional performance. ?? Up in chair when I arrived to room today. Did ambulation chair to bed to perform stretches and exercises. Utilized a flexion based approach as instructed by supervising PT. ? BED MOBILITY/TRANSFERS? Rolling L/R: supervision with cue to bend knees prior to rolling Supine-sit: isupervisionwith HOB flat with and without railing x 5 trials? Sit-supine: min A with verbal cueing to keep left knee bent to provide lumbar support performed x 5 trials? Sit-stand: ?SBA with verbal cueing?intermittently for proper hand placement ? Stand-sit: SBA, with verbal cueing intermittently for safe approach to surface and for reaching back with her hands prior to sit ? Provided skilled cues and instruction on performance and technique throughout. ? GAIT? Assistive Device: FWW? Weight bearing: Full Assist: SBA, due to patient's fear that right left would give out on her ? Distance:?400 feet x 1 175 feet x 1? Deviation: reciprocal pattern cues x 2 for turning to stay within frame of FWW ?Exercises: In supine ? Performed heel slides , clamshell supine( abd/add), supine hip abduction adduction with knee extension. x 5 reps each. Pt unable to perform SLR without assistance ? Provided skilled instruction in proper exercise performance Provided skilled manual cues to facilitate proper muscle recruitment and/or form ASSESSMENT:? Pt with significant improvement from morning session to afternoon session with less need for assistance and no pain during WB tasks. Pt 's son supportive of recommendation for bed bar to aide in bed mobility. trialed leg offset duplicating machine operator which pt was unable to coordinate safely . Pt able to perform sit to supine with less discomfort when she used the bed rail and took her time. Pt gets out of bed to her right thereby having to flex and Adduct her RLE to get into bed which produced pain along hip flexor and into groin. Son present throughout session providing support and willingness to get bedrail as well as recommended glide cap or skis to posterior legs of FWW as son reported her FWW gets stuck on the carpet and then she does not use it. at this time pt should not be driving as she is unable to safely hip flex and adduct her RLE to move her leg from gas to brake pedal. PLAN: Continue to focus on improved ADL function and reduction in right LE irritation. TREATMENT CODE/TIME: 11359,7922-1015 DISCHARGE RECOMMENDATION: Home with services ( PT)
[2023-12-14 19:16] VITALS: BP 113/49; PULSE 80; RESP 17; TEMP 36.5; O2SAT 95
[2023-12-14] MEDS: cefTRIAXone 1 GM/50 ML BAG IVPB (20:05)
[2023-12-14] MEDS: Melatonin 3 MG TAB PO (20:05)
[2023-12-14] MEDS: Lidocaine Patch Removal 1 EACH TD (20:38)
[2023-12-15 03:28] VITALS: BP 125/59; PULSE 78; RESP 17; TEMP 36.7; O2SAT 98
[2023-12-15 07:14] LABS: Abs Immature Grans 0.01 10^3/uL (0.0-0.06); Absolute Basophil Count 0.01 10^3/uL (0.0-0.2); Absolute Eosinophil Count 0.05 10^3/uL (0.0-0.7); Absolute Lymphocyte Count 6.26 10^3/uL (1.2-3.4); Absolute Monocyte Count 0.34 10^3/uL (0.1-0.8); Absolute Neutrophil Count 1.84 10^3/uL (1.2-6.7); Basophils % 0.1 %; Eosinophils % 0.6 %; HCT 25.8 % (36.0-46.0); HGB 8.6 g/dL (11.2-15.7); Immature Grans % 0.1 %; Lymphocytes % 73.6 %; MCH 27.8 pg (27.0-33.0); MCHC 33.3 % (32.0-36.0); MCV 84 fL (80-95); MPV 7.7 fL (8.0-11.0); Neutrophils % 21.6 %; Platelet Count 144 10^3/uL (130-400); RBC 3.09 10^6/uL (3.93-5.22); RDW 14.4 % (11.7-14.6); RDW-SD 43.4 fL; WBC 8.51 10^3/uL (4.4-10.8)
[2023-12-15 07:28] LABS: Anion Gap 6.8 mmol/L (3-11); BUN 14 mg/dL (7-18); CO2 28.2 mmol/L (21.0-32.0); CREATININE 0.6 mg/dL (0.55-1.02); Calcium 9.1 mg/dL (8.5-10.1); Chloride 98 mmol/L (98-107); Estimated GFR 86.28 (mL/min/1.73m2); Glucose 107 mg/dL (74-106); Magnesium 2.3 mg/dL (1.8-2.4); Potassium 4.2 mmol/L (3.5-5.1); Sodium 133 mmol/L (136-145)
[2023-12-15 07:32] LABS: Anisocytosis 1+; Diff Comment Diff Reviewed
[2023-12-15 08:00] VITALS: BP 140/83; PULSE 79; RESP 20; TEMP 37; O2SAT 97
[2023-12-15] MEDS: Docusate Sodium 100 MG CAP PO ×3 (08:57→21:10)
[2023-12-15] MEDS: Multivitamin w/Minerals TAB 1 TAB PO (08:57)
[2023-12-15] MEDS: Acetaminophen 325 MG TAB 650 MG PO ×4 (08:57→21:10)
[2023-12-15] MEDS: Lidocaine 5% Patch 1 PATCH TP (08:57)
[2023-12-15] MEDS: Normal Saline Flush 10 ML SYR IVP ×2 (08:58→21:11)
--- NOTE | 2023-12-15 09:25 | PDOC.CMPRO ---
Date of service: 12/15/23 Time of Service: 09:30 Care Management Progress Note Progress Note Text Progress Note Text: Per report, Shannon had a difficult night, and was confused and agitated. Her son was called in to provide support her overnight by nursing staff. CM met with Shannon's son, Khris to discuss his concerns, and provide education and information about next steps regarding Shannon's discharge plan. Per provider, she will be started on seroquel today, and will be monitored overnight to determine if this helps with her agitation. CM provided resources for caregivers at home to Khris, who will be looking into options for her, as he and his brother do not live locally. Per PT, she is improving functionally; CM discussed this with Khris, as she may not qualify for short term rehab. Khris stated that his brother, Frankie will be visiting later today, and will plan to be available overnight, if staff requests support. CM discussed this with the RN supervisor bridges and buildings, who agreed to allow visitation after hours to support Shannon, if needed. CM will continue to follow. Discharge Potential Discharge Needs: PCP F/U Appt Anticipated Barriers to Discharge: None Identified Patient/Family Education Needs: Review discharge instructions, discuss Ask Me Three Transportation: Private vehicle Plan: Anticipate Shannon will return home with new orders for HH RN, PT, OT, [employer] FARM[employer]. GOPAL sent a referral to [facility] for [facility] and to assist with long-term planning, including caregivers at home. She will follow up with her PCP and discharge plan of care. CM will continue to follow. SDOH(Care Management) Screening Will the Patient Participate in the Screening?: Yes Do you worry about having a steady place to live?: no In the past 12 months, have you had to go without electric, gas, oil or water in your home?: no Have you or anyone in your house had to go without enough food to eat?: no Has lack of transportation kept you from medical appointments or from doing things needed for daily living?: no Has anyone in your support network made you feel unsafe for any reason?: no
--- NOTE | 2023-12-15 10:14 | PGE_ITS ---
Date of Service Date of service: 12/15/23 Time of Service: 15:00 Assessment and Plan Assessment and plan (1) Hyponatremia: Status: Acute Assessment and plan: Stop -IVF: NS at 100 cc/hr as Na 133 Continue fluid restriction 1l/ 24 hours Urine sodium 19- urine osmolality 509 most likely d/t confirmed toast and tea diet- considers a trial for meals on wheels on d/c when going home Remains confused at the night most likely ; previous CT showed small vessel ischemic disease in 2022 without official diagnosis for dementia-initiate Seroquel low-dose and reevaluate mental status during the night in a.m. Might benefit from STR on discharge?considering [facility] and [facility] (2) Fall: Status: Acute Assessment and plan: On fall precautions PT consult was ordered and initial recommendation in notes The patient should continue to use walker at all times for gait safety and stability. Qualifiers: Encounter type: subsequent encounter Qualified Code(s): W19.XXXD - Unspecified fall, subsequent encounter (3) Leukocytosis (leucocytosis): Status: Acute Assessment and plan: Resolved suspect d/t recent falls/trauma. Afebrile Urine culture w GNR- on ceftriaxone but cultures does not show infection the ceftriaxone was discontinued Qualifiers: Leukocytosis type: other Qualified Code(s): D72.828 - Other elevated white blood cell count (4) UTI (urinary tract infection): Status: Suspected Assessment and plan: cultures GNR in urine, Blood Cx negative X 48 hours Ceftriaxone discontinued on 12/15/2023 due to cultures showing contamination Qualifiers: Hematuria presence: with hematuria Urinary tract infection type: acute cystitis Qualified Code(s): N30.01 - Acute cystitis with hematuria (5) Acute right hip pain: Status: Acute Assessment and plan: Pain is now less and imaging was negative for acute fracture on admit Ongoing PT consult Continue scheduled APAP?effective (6) Spinal stenosis of lumbar region: Status: Chronic Assessment and plan: No pain on palpation today, remains mobile. PT evaluation for safety and pos sibly assisted ambulation at home. Will consider MRI pending pain management VS outpatient Continue lidocaine patch and acetaminophen Qualifiers: Neurogenic claudication status: without neurogenic claudication Qualified Code(s): M48.061 - Spinal stenosis, lumbar region without neurogenic claudication (7) Palliative care encounter: Status: Acute Assessment and plan: Palliative consult completed by Dr. Juarez; she is also the patient primary care practitioner. Please read notes COLTS form completed on 12/14/[address] Begum Subjective Subjective Patient reports: no new complaints, tolerating liquids well, tolerating a regular diet, voiding w/o difficulty, no flatus, bowel movement and other; denies diarrhea, nausea, vomiting, shortness of breath or fever Exam Narrative Exam Narrative: Constitutional The patient is sitting in chair, without acute distress Neuro:alert and oriented to self, person, place and time?non- focal Resp:clear lung bilaterally Cardio: regular rhythm, S1, S2, no murmur GI: Abdomen is not distended, soft and non tender, bowel sounds are present Integumentary: No skin lesions or rash Extremities: strength 5/5 to bilateral lower and upper extremities Psych: RASS 0, congruent mood and normal affect, talkative and sometimes jumps from 1 subject to the other Objective Last Vital Signs Temp 37 C 12/15/23 08:00 Pulse 79 12/15/23 08:00 Resp 20 12/15/23 08:00 BP 140/83 12/15/23 08:00 Pulse Ox 97 12/15/23 08:00 Laboratory Results - last 24 hr 12/15/23 06:20 WBC 8.51 RBC 3.09 L Hgb 8.6 L Hct 25.8 L MCV 84 MCH 27.8 MCHC 33.3 RDW 14.4 Plt Count 144 MPV 7.7 L Immature Gran % 0.1 Neutrophils % 21.6 Lymphocytes % 73.6 Monocytes % 4.0 Eosinophils % 0.6 Basophils % 0.1 Nucleated RBC % 0.0 Absolute Neutrophils 1.84 Absolute Lymphocytes 6.26 H Absolute Monocytes 0.34 Absolute Eosinophils 0.05 Absolute Basophils 0.01 RBC Morphology See Below Anisocytosis 1+ Sodium 133 L Potassium 4.2 Chloride 98 Carbon Dioxide 28.2 Anion Gap 6.8 BUN 14 Creatinine 0.6 Est GFR (CKD-EPI 2020) 86.28 Glucose 107 H Calcium 9.1 Magnesium 2.3 Time Spent with Patient Time Spent with Patient: >50 minutes Time was spent: preparing to see the patient(eg.review tests), obtaining and/or reviewing separately otained hiistory, ordering medications,tests, procedures, referring, communicating with other health care administrative tech, indepentently interpreting results, counseling the patient and care coordination
[2023-12-15 11:06] VITALS: BP 147/60; PULSE 78; RESP 20; TEMP 36.9; O2SAT 97
[2023-12-15] MEDS: QUEtiapine 25 MG TAB 12.5 MG PO ×2 (11:17→21:11)
--- NOTE | 2023-12-15 13:17 | PTTR_ITS ---
PT Notes Visit Reasons: Acute hyponatremia with falls and weakness Inpatient Physical Therapy Treatment Note [facility] Date: 12/15/2023 PRECAUTIONS: fall, standard SUBJECTIVE: Pt reports she is feeling good but her back is a little stiff. Patient reporting a gentleman named Mitch was sitting in the corner of her room by the window she described him as a young with brown hair a good voice for the job he does. Patient also stating that she was quitting her job that she just cannot do it anymore but she wanted to give a notice even though she really wants to end today. OBJECTIVE: Pt seated in chair with chair alarm in place and heat to her back. pt agreeable to participate. Patient able to recall this therapist and that we had a scheduled appointment for today however some confusion noted regarding the person she frequently sees sitting in the corner named Mitch and talking about quitting her job. ? PAIN: Back right sided patient unable to use scale stating it is just sore Therapeutic Activities (18222): Direct one-on-one instruction in dynamic activities to improve functional performance. ?? Up in chair when I arrived to room today. Did ambulation chair to bed to perform stretches and exercises. Utilized a flexion based approach as instructed by supervising PT. ? BED MOBILITY/TRANSFERS? Rolling L/R: supervision with cue to bend knees prior to rolling Supine-sit: supervision with HOB flat with and without railing x 5 trials? Sit-supine: CGA with verbal cueing to keep left knee bent to provide lumbar support performed x 5 trials? Sit-stand: Independent with proper hand placement ? Stand-sit: Independent with proper hand placement? Provided skilled cues and instruction on performance and technique throughout. ? Ambulation: Ambulate 400 feet with FWW supervised cues for direction due to inability to locate room in an unfamiliar environment. Ambulated within the room with FWW independent chair to bathroom bathroom to bed demonstrating reciprocal pattern and good safety awareness staying with her FWW ?Exercises: Seated sciatic nerve glide times 30 seconds x 2 bilateral lower extremities ?Long arc quad x 15 bilateral lower extremities, seated hamstring stre tch 30 seconds x 2 bilateral lower extremity cues to hinge at hip ? Provided skilled instruction in proper exercise performance Provided skilled manual cues to facilitate proper muscle recruitment and/or form ASSESSMENT: Patient demonstrates improved safety awareness and stability in standing with no episodes of buckling right lower extremity. Patient able to demonstrate ability to function within simulated apartment locomotion short distances within room with FWW. Patient demonstrating ability to sequence dressing and brushing teeth In standing position. Despite confusion patient demonstrates ability to safely maneuver within the room recommending discontinuing of alarm to allow increased mobility in preparation for discharge to home. Patient would benefit from home PT OT to further assess sequencing ability with higher level tasks such as cooking and cleaning. PLAN: Continue to focus on improved ADL function and reduction in right LE irritation. TREATMENT CODE/TIME: 62128 x 15 minutes for 1 unit, 76900 x 10 minutes for 1 unit/954?1020 DISCHARGE RECOMMENDATION: Home with services ( PT)
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
[2023-12-15] MEDS: Heparin 5,000 UNITS/ML VIAL 5000 UNITS SC ×2 (13:47→22:30)
[2023-12-15 15:18] VITALS: BP 141/66; PULSE 80; RESP 16; TEMP 36.4; O2SAT 97
--- NOTE | 2023-12-15 16:24 | PTTR_ITS ---
PT Notes Visit Reasons: Acute hyponatremia with falls and weakness Inpatient Physical Therapy Treatment Note [facility] Date: 12/15/2023 PRECAUTIONS: fall, standard SUBJECTIVE: Pt report reporting this is a diana program with all the theater and the garcia caban actor who was here last night. Then stating she was no longer doing this as she did not want to be a part of the program. OBJECTIVE: Pt seated in her chair with confusion. After several moments patient recognized this therapist and was able to recall what we did this morning. ? PAIN: Back right sided patient unable to use scale stating it is just sore Therapeutic Activities (94559): Direct one-on-one instruction in dynamic activities to improve functional performance. ? BED MOBILITY/TRANSFERS? Rolling L/R: Independent Supine-sit: Independent HOB flat with and without railing x 5 trials? Sit-supine: CGA with increased time via side-lying right. Patient independent when able to perform sit to supine via side-lying on her left. (At home patient performs to the right)? Sit-stand: Independent with proper hand placement ? Stand-sit: Independent with proper hand placement? Provided skilled cues and instruction on performance and technique throughout. ? Ambulation: Ambulate 400 feet with FWW supervised cues for direction due to inability to locate room in an unfamiliar environment. Ambulated within the room with FWW independent chair to bathroom bathroom to bed demonstrating reciprocal pattern and good safety awareness staying with her FWW Ambulate 25 feet x 2 without assistive device contact-guard assist Stairs: 2 x 6 inch steps and 3 x 4 inch steps x 2 trials step to pattern descending reciprocal pattern ascending. ?Exercises: Seated sciatic nerve glide times 30 seconds x 2 bilateral lower extremities ?Long arc quad x 15 bilateral lower extremities, seated hamstring stretch 30 seconds x 2 bilateral lower extremity cues to hinge at hip ? Provided skilled instruction in proper exercise performance Provided skilled manual cues to facilitate proper muscle recruitment and/or form ASSESSMENT: Patient demonstrates insight into need for FWW for ambulation as she was able to note improved stability and balance when she uses the FWW. Patient noted difficulty sequencing handwashing after utilizing the bathroom with unfamiliar set up of hospital bathroom. Patient unable to problem solve location of towels and soap despite cues for location and instruction to look. Patient reports she utilizes a hand towel to dry her hands and a bar of soap that she keeps on the edge of the sink. Patient utilizes humor to cover for confusion. Patient with difficulty sequencing how to plug in and turn on her cell phone. Once cell phone turned on patient was able to call her son Khris without assistance. 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 Son Khris present at end of session discussed and educated him concerns. He stated he was aware and acknowledge similar concerns. Patient would benefit from increased oversight at home son Khris educated on this and in agreement. Patient continues to demonstrate signs and symptoms consistent with sciatica versus SI dysfunction patient responded well to hamstring stretching and sciatic nerve glide techniques. PLAN: Continue to focus on improved ADL function and reduction in right low back and LE irritation. TREATMENT CODE/TIME: 09797 x 3 units, 49292 x 10 minutes for 1 unit/1330?1423 DISCHARGE RECOMMENDATION: Home with services ( PT)
[2023-12-15 19:37] VITALS: BP 110/53; PULSE 77; RESP 17; TEMP 36.1; O2SAT 98
[2023-12-15] MEDS: Melatonin 3 MG TAB PO (21:10)
[2023-12-15] MEDS: Lidocaine Patch Removal 1 EACH TD (21:19)
[2023-12-16] MEDS: Methocarbamol 500 MG TAB PO ×2 (02:45→20:49)
[2023-12-16 06:20] LABS: Abs Immature Grans 0.01 10^3/uL (0.0-0.06); Absolute Basophil Count 0.03 10^3/uL (0.0-0.2); Absolute Eosinophil Count 0.09 10^3/uL (0.0-0.7); Absolute Lymphocyte Count 6.46 10^3/uL (1.2-3.4); Absolute Monocyte Count 0.37 10^3/uL (0.1-0.8); Basophils % 0.3 %; HGB 8.9 g/dL (11.2-15.7); Immature Grans % 0.1 %; Lymphocytes % 73.7 %; MCH 28.3 pg (27.0-33.0); MCHC 34.2 % (32.0-36.0); MCV 83 fL (80-95); MPV 7.7 fL (8.0-11.0); Monocytes % 4.2 %; Neutrophils % 20.7 %; Platelet Count 140 10^3/uL (130-400); RBC 3.14 10^6/uL (3.93-5.22); RDW 14.6 % (11.7-14.6); RDW-SD 43.1 fL; WBC 8.76 10^3/uL (4.4-10.8)
[2023-12-16 06:36] LABS: Anion Gap 8.1 mmol/L (3-11); BUN 14 mg/dL (7-18); CO2 27.9 mmol/L (21.0-32.0); CREATININE 0.7 mg/dL (0.55-1.02); Calcium 9.2 mg/dL (8.5-10.1); Chloride 98 mmol/L (98-107); Estimated GFR 83.13 (mL/min/1.73m2); Glucose 107 mg/dL (74-106); Potassium 3.9 mmol/L (3.5-5.1); Sodium 134 mmol/L (136-145)
[2023-12-16 06:51] LABS: Diff Comment Agrees w/ Instrument; Hypochromasia 1+
[2023-12-16 07:24] VITALS: BP 133/77; PULSE 80; RESP 20; TEMP 36.9; O2SAT 98
[2023-12-16] MEDS: Lidocaine 5% Patch 1 PATCH TP (07:52)
[2023-12-16] MEDS: QUEtiapine 25 MG TAB 12.5 MG PO ×2 (07:53→20:49)
[2023-12-16] MEDS: Docusate Sodium 100 MG CAP PO ×3 (07:53→20:49)
[2023-12-16] MEDS: Multivitamin w/Minerals TAB 1 TAB PO (07:53)
[2023-12-16] MEDS: Acetaminophen 325 MG TAB 650 MG PO ×4 (07:53→20:49)
[2023-12-16] MEDS: Normal Saline Flush 10 ML SYR IVP ×2 (07:54→20:50)
--- NOTE | 2023-12-16 09:57 | PGE_ITS ---
Date of Service Date of service: 12/16/23 Time of Service: 09:57 Assessment and Plan Assessment and plan (1) Hyponatremia: Status: Acute Assessment and plan: Initial sodium 129 now 134 Will continue fluid restriction 1l/ 24 hours Urine sodium 19- urine osmolality 509 pointing most likely diet related with probable increase water intake. Improve confusion ; previous CT showed small vessel ischemic disease in 2022 without official diagnosis for dementia-initiated Seroquel [id number] to have been effective in reducing the intensity of delirium?patient was redirected easily by nursing staff The patient might benefit from an outpatient neurology consult Might benefit from STR on discharge but plan meds with family encouragement for home health with full services and private caregiver 29/09? (2) Fall: Status: Acute Assessment and plan: Will maintain fall precautions PT consult ongoin and initial recommendation in notes The patient should continue to use walker at all times for gait safety and stability. Qualifiers: Encounter type: subsequent encounter Qualified Code(s): W19.XXXD - Unspecified fall, subsequent encounter (3) UTI (urinary tract infection): Status: Suspected Assessment and plan: Resolved Cultures GNR in urine, Blood Cx negative X 48 hours Ceftriaxone discontinued on 12/15/2023 due to cultures showing contamination Qualifiers: Hematuria presence: with hematuria Urinary tract infection type: acute cystitis Qualified Code(s): N30.01 - Acute cystitis with hematuria (4) Acute right hip pain: Status: Acute Assessment and plan: Pain is now less and imaging was negative for acute fracture on admit Ongoing PT consult On scheduled APAP?effective (5) Spinal stenosis of lumbar region: Status: Chronic Assessment and plan: Remains mobile. PT evaluation for safety and possibly assisted ambulation at home. Will consider MRI pending pain management VS outpatient Continue lidocaine patch and scheduled acetaminophen Qualifiers: Neurogenic claudication status: without neurogenic claudication Qualified Code(s): M48.061 - Spinal stenosis, lumbar region without neurogenic claudication (6) Palliative care encounter: Status: Acute Assessment and plan: Palliative consult completed by Dr. Juarez; she is also the patient primary care practitioner. Please read notes COLTS form completed on 12/14/2023 Dr. Juarez will be in at 7:00 on 12/17/2023 to see the patient. She is concerned with the plan and would like the patient to be on short-term rehabilitation for at least [address] Begum Subjective Subjective Patient reports: feels better, tolerating liquids well, tolerating a regular diet, voiding w/o difficulty, flatus and bowel movement; denies diarrhea, nausea, vomiting, shortness of breath or fever Exam Narrative Exam Narrative: Constitutional Neuro:alert and oriented to self, person, place and time?non- focal Resp:clear lung bilaterally Cardio: regular rhythm, S1, S2 GI: Abdomen is not distended, soft and non tender, bowel sounds are present Integumentary: No skin lesions or rash Extremities: strength 5/5 to bilateral lower and upper extremities Psych: congruent mood and normal affect Objective Last Vital Signs Temp 36.9 C 12/16/23 07:24 Pulse 80 12/16/23 07:24 Resp 20 12/16/23 07:24 BP 133/77 12/16/23 07:24 Pulse Ox 98 12/16/23 07:24 Laboratory Results - last 24 hr 12/11/23 12/16/23 22:19 05:50 WBC 8.76 RBC 3.14 L Hgb 8.9 L Hct 26.0 L MCV 83 MCH 28.3 MCHC 34.2 RDW 14.6 Plt Count 140 MPV 7.7 L Immature Gran % 0.1 Neutrophils % 20.7 Lymphocytes % 73.7 Monocytes % 4.2 Eosinophils % 1.0 Basophils % 0.3 Nucleated RBC % 0.0 Absolute Neutrophils 1.80 Absolute Lymphocytes 6.46 H Absolute Monocytes 0.37 Absolute Eosinophils 0.09 Absolute Basophils 0.03 RBC Morphology See Below Hypochromasia 1+ Sodium 134 L Potassium 3.9 Chloride 98 Carbon Dioxide 27.9 Anion Gap 8.1 BUN 14 Creatinine 0.7 Est GFR (CKD-EPI 2020) 83.13 Glucose 107 H Calcium 9.2 Magnesium 2.0 Path Cons Comment SEE COMMENT Time Spent with Patient Time Spent with Patient: >50 minutes Time was spent: preparing to see the patient(eg.review tests), obtaining and/or reviewing separately otained hiistory, ordering medications,tests, procedures, referring, communicating with other health summer child caregiver, indepentently interpreting results, counseling the patient and care coordination
--- NOTE | 2023-12-16 11:49 | PT.INTREAT ---
PT Notes Visit Reasons: Acute hyponatremia with falls and weakness Inpatient Physical Therapy Treatment Note [facility] Date: 12/16/2023 PRECAUTIONS: fall, standard SUBJECTIVE: Pt reporting she had some sleep last night and she is waiting for her sons to return from an appointment at the bank.Patient recognized this therapist as she answered stating she was waiting and wanted to go for a walk. OBJECTIVE: Pt seated in her chair. ? PAIN: Back right sided patient unable to use scale stating it is just sore Therapeutic Activities (70707): Direct one-on-one instruction in dynamic activities to improve functional performance. ? BED MOBILITY/TRANSFERS? Rolling L/R: Independent Supine-sit: Independent HOB flat with and without railing x 5 trials? Sit-supine: CGA with increased time via side-lying right. Patient independent when able to perform sit to supine via side-lying on her left. (At home patient performs to the right)? Sit-stand: Independent with proper hand placement ? Stand-sit: Independent with proper hand placement? Provided skilled cues and instruction on performance and technique throughout. ? Ambulation: Ambulate 300 feet x2 with FWW supervised cues for direction due to inability to locate room in an unfamiliar environment. pt ambulate 200 feet x2 with FWW during 2nd session and was able to locate her room by looking st room numbers on other doors. 2nd session Stairs: 2 x 6 inch steps and 3 x 4 inch steps x 2 trials step to pattern descending reciprocal pattern ascending. ?Exercises: 2nd session: Seated sciatic nerve glide times 30 seconds x 2 bilateral lower extremities ?Long arc quad x 15 bilateral lower extremities, seated hamstring stretch 30 seconds x 2 bilateral lower extremity cues to hinge at hip 1st session Stand exercises: Hip flexion hip abduction 5 reps BLE with upper extremity support of walker; heel raises x 10 with bilateral upper extremity support a walker? Provided skilled instruction in proper exercise performance Provided skilled manual cues to facilitate proper muscle recruitment and/or form ASSESSMENT: Patient with no comments regarding a bear or this being a program as compared to prior session. Patient demonstrating continued difficulty bringing her right lower extremity into bed. Patient with poor carryover of bracing techniques for lumbar stabilization. Patient reported no pain in right low back during long arc quads/sciatic nerve glide this session. Patient requires cues for carryover of proper technique and tactile cues to perform lumbar stabilization. 2nd session Education with pt and pt's sons on functional ability on stairs, education regarding not recommending her drive at this time d/t cognitive and limited dexterity of RLE to move from gas to brake, impaired reaction time. pt did demonstrate ability to sequence hand washing and drying this afternoon without cues and able to problem solve altered enviornment for location of all items (i.e. soap, how to turn water on and towels to dry) TREATMENT CODE/TIME: 1st session 49520 x 2 units [id number], 2nd session [id number], 85808 x 1, 76601 x 03/[id number] DISCHARGE RECOMMENDATION: Home with services ( PT)
--- NOTE | 2023-12-16 13:43 | PHA.REVIEW2 ---
Pharmacy Admission Review Admission Clinical Review Admission Pharmacy Review: Palliative care encounter (Acute) Sacroiliac dysfunction (Acute) Hyponatremia (Acute) Leukocytosis (leucocytosis) (Acute) Back pain (Acute) Fall (Acute) Acute right hip pain (Acute) Sacro ilial pain (Acute) environmental - pine tree Adverse Reaction (Uncoded 12/11/23 22:15) Other (See Comment) Resuscitation Status DNR/DNI Height 5 ft 2 in Weight 64.864 kg Pharmacy Admission Review Renal Dosing Renal Dosing: BUN 14 mg/dL (7-18) 12/16/23 05:50 Creatinine 0.7 mg/dL (0.55-1.02) 12/16/23 05:50 Medications needing adjustments: Reviewed (CrCl 34.38 mL/min) List of meds needing interventions: Current medications are okay Anticoagulation Anticoagulation: Hgb 8.9 g/dL (11.2-15.7) L 12/16/23 05:50 Hct 26.0 % (36.0-46.0) L 12/16/23 05:50 Plt Count 140 10^3/uL (130-400) 12/16/23 05:50 Creatinine 0.7 mg/dL (0.55-1.02) 12/16/23 05:50 DVT Prophylaxis: Reviewed (Hgb increased from 8.6) Medications: Heparin (q8h) Relevant Labs Relevant Labs: Sodium 134 mmol/L (136-145) L 12/16/23 05:50 Potassium 3.9 mmol/L (3.5-5.1) 12/16/23 05:50 Chloride 98 mmol/L (98-107) 12/16/23 05:50 Magnesium 2.0 mg/dL (1.8-2.4) 12/16/23 05:50 Electrolytes, C-Reactive P, ESR: Reviewed (Na increased from 134 (123 -> 125 -> 127 -> 133 -> 134)) Cardiac Review Cardiac Review: Troponin I 49 ng/L (<or=51) 12/12/23 00:28 BP, HR, EF%: Reviewed (BP and HR WNL) QTc Review QTc: Reviewed (408 from 12/11/23) IV to PO Switch IV Medications: Reviewed Home Meds Home Med List reviewed: Reviewed Relevent Home Meds Not ordered & why?: Zyrtec (PRN) Current Meds Current Medication Order Review: Reviewed Comments: Seroquel was added due to patient sundowning, per nursing has seemed to help
[2023-12-16] MEDS: Heparin 5,000 UNITS/ML VIAL 5000 UNITS SC ×2 (14:35→22:24)
--- NOTE | 2023-12-16 17:49 | CMPROGNOTE_ITS ---
Date of service: 12/16/23 Time of Service: 17:49 Care Management Progress Note Progress Note Text Progress Note Text: Shannon was sitting in the bed side chair, finishing her dinner and talking with her son Khris, when CM met with her today. Shannon was very pleasant, and oriented. Khris stated that he is pleased with his mom's turn around. Shannon stated that she had been burning the candles at both ends and that she was just doing too much, and that's why she ended up hospitalized. Shannon would like to return to her apartment. Khris would like her to go to SNF. Khris and Shannon stated that Khris and his brother Frankie did a lot of work on Shannon's financials today. Discharge Potential Discharge Needs: PCP F/U Appt Anticipated Barriers to Discharge: None Identified Patient/Family Education Needs: Review discharge instructions, discuss Ask Me Three Transportation: Private vehicle Plan: Anticipate Shannon will return home with new orders for HH RN, PT, OT, VENDOR MANAGEMENT ASSOCIATE. GOPAL sent a referral to [facility] for [facility] and to assist with care home planning, including caregivers at home. She will follow up with her PCP and discharge plan of care. CM will continue to follow. SDOH(Care Management) Screening Will the Patient Participate in the Screening?: Yes Do you worry about having a steady place to live?: no In the past 12 months, have you had to go without electric, gas, oil or water in your home?: no Have you or anyone in your house had to go without enough food to eat?: no Has lack of transportation kept you from medical appointments or from doing things needed for daily living?: no Has anyone in your support network made you feel unsafe for any reason?: no
[2023-12-16] MEDS: Polyethylene Glycol 3350 17 GM PACKET PO (20:49)
[2023-12-16] MEDS: Melatonin 3 MG TAB PO (20:49)
[2023-12-16] MEDS: Milk of Magnesia 30 ML CUP PO (20:49)
[2023-12-16] MEDS: Lidocaine Patch Removal 1 EACH TD (20:50)
[2023-12-16 22:26] VITALS: BP 126/68; PULSE 83; RESP 16; TEMP 36.2; O2SAT 95
[2023-12-17 07:25] VITALS: BP 149/62; PULSE 80; RESP 18; TEMP 37; O2SAT 98
[2023-12-17] MEDS: Acetaminophen 325 MG TAB 650 MG PO ×4 (08:55→20:17)
[2023-12-17] MEDS: Lidocaine 5% Patch 1 PATCH TP (08:55)
[2023-12-17] MEDS: Docusate Sodium 100 MG CAP PO ×3 (08:55→20:30)
[2023-12-17] MEDS: Multivitamin w/Minerals TAB 1 TAB PO (08:56)
[2023-12-17] MEDS: QUEtiapine 25 MG TAB 12.5 MG PO ×2 (08:56→20:18)
[2023-12-17] MEDS: Normal Saline Flush 10 ML SYR IVP ×2 (08:56→20:18)
[2023-12-17 09:11] LABS: Absolute Basophil Count 0.03 10^3/uL (0.0-0.2); Absolute Eosinophil Count 0.07 10^3/uL (0.0-0.7); Absolute Lymphocyte Count 3.64 10^3/uL (1.2-3.4); Absolute Monocyte Count 0.23 10^3/uL (0.1-0.8); Absolute Neutrophil Count 1.76 10^3/uL (1.2-6.7); Basophils % 0.5 %; Eosinophils % 1.2 %; HCT 46.7 % (36.0-46.0); HGB 15.6 g/dL (11.2-15.7); Lymphocytes % 63.5 %; MCHC 33.4 % (32.0-36.0); MCV 84 fL (80-95); MPV 7.6 fL (8.0-11.0); Neutrophils % 30.8 %; Platelet Count 104 10^3/uL (130-400); RBC 5.58 10^6/uL (3.93-5.22); WBC 5.73 10^3/uL (4.4-10.8)
--- NOTE | 2023-12-17 10:34 | W.PM.DS.N ---
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 (6) Palliative care encounter: Status: Acute Discharge Plan Disposition [facility] Disposition[facility] Condition: Improving Discharge Details Reason For Visit: Acute hyponatremia with falls and weakness Admit Date/Time: 12/12/23 00:33 Admit Provider: Khris Escalona Attending Provider: Khris Escalona Primary Care Provider: Falguni Juarez Hospital Course Hospital Course: This 88 years old female patient with past medical history of lumbar stenosis bilateral knee replacement, living alone at home presented on 12/11/2023 2 the ED at [facility] status post fall at home after her knees gave out. The patient had multiple episode in the recent week of evaluation in the ED after falling at home. The patient did not appear to have had a syncopal event; no loss of consciousness reported. The patient had been in the ED earlier on 12/31/2023 with similar presentation, the workup in the ED was significant for negative head and neck CT X.-ray ofThe lumbar spine and hip and pelvis showed no acute process. The patient was discharged home with Lidoderm patch and Robaxin and assistance from her neighbors. The patient reported continuing to feel weak once home with difficulty using a walker with subsequent gentle fall to the ground later in the day. Family and friends including her primary care provider were at home and felt that she was not safe at home as she did not have appropriate strength to get up to the commode, ambulate around without assistance or anything else. She was brought back to the emergency department for reassessment. At the time the patient admitted that she has been having lack of strength to get out of the bed and sleeping in her chair. Patient denied saddle anesthesia, numbness or tingling in the groin or change sensation when wiping. He was also denied weakness in the lower extremity, dysuria, shortness of breath or chest pain. CBC showed leukocytosis at 18, H&H at 10.8 and 30.9, UA initially pointing to urinary tract infection and initial treatment initiated with ceftriaxone. Urine cultures showed contamination and ceftriaxone was stopped without any further symptoms and resolution of leukocytosis. Sodium level was found to be 117 with a serum osmolality of 251. The patient was admitted and treated for hyponatremia with resolution. This was most likely linked to the fact that the patient reported not cooking for meals anymore and surviving on TV, toast, soda and water. Moreover the patient urine sodium was 19 which is not correlating to other conditions such as SIADH. The patient experienced episode of agitation at night resolving during daytime. Previous CT scan showed small ischemic vessel disease which could correlate to dementia and delirium in the setting of acute care. There is no possibility to establish a diagnosis of dementia and acute care this will have to be done as outpatient referral. Low-dose Seroquel was initiated with improvement of symptoms. Physical therapy initial recommendation was was for home health versus short-term rehabilitation. As the patient improved home health with physical therapy was considered. Palliative care consult was completed by Dr. Falguni Juarez, the patient's terminal gauger supervisor PCP, with recommendations for short-term rehab for 2 weeks; upon discussion with care management, the family and Dr. Juarez last attempt was made to send referral for the patient to go to short-term rehabilitation facility. The patient was accepted to the [facility] and transfer was agreed upon for 12/18/2019 4 in the morning. Reportedly, the family has also established a plan to get private home care prior to the patient returning home. Discussed with Dr. Begum Home Meds and New Rx's Prescriptions: New acetaminophen 325 mg Tablet 650 mg PO TID Qty: 30 0RF docusate sodium [Colace] 100 mg Capsule 100 mg PO DAILY Qty: 30 0RF quetiapine 25 mg Tablet 12.5 mg PO HS Qty: 15 0RF melatonin 5 mg tablet 5 mg PO HS Qty: 30 0RF Continued Centrum Silver 0.4-300-250 mg-mcg-mcg tablet 1 tab PO DAILY PreserVision AREDS [id number],[id number] tbyu-ib-[id number] capsule 1 cap PO BID acetaminophen [Tylenol] 325 mg capsule 325 mg PO ONCE PRN methocarbamol 500 mg tablet 500 mg PO TID PRNQty: 10 0RF lidocaine [Lidoderm] 5 % adhesive patch,medicated 1 patch topical DAILY Qty: 15 0RF Rx Instructions: leave on most painful area for up to 12 hrs Held cetirizine-pseudoephedrine [Zyrtec-D] 5-120 mg tablet extended release 12 hr 1 tab PO DAILY PRN Hold Instructions: Resume on 12/31/23. as per PCP Discharge Instructions Activity:: Activity as Tolerated Equipment/Supplies:: Walker Diet:: As Tolerated Discharge Orders Discharge Orders: Discharge Order (Routine); Ordered 12/17/23 Ordered By: Zuleyka Guzman DS: Summary Time Spent with Patient providing and/or coordinating discharge services: Greater than 30 minutes Status at Discharge Functional status at discharge: independent ambulation Overall status at discharge: patient is progressing back to baseline Mental Status: mental status grossly normal Speech and Movement: speech and movement normal Mood: congruent mood Affect: normal affect Quality:SDOH Health Related Social Needs: No Data to Display Exam Narrative Exam Narrative: Constitutional Neuro:alert and oriented to self, person, place and time?non- focal Resp:clear lung bilaterally Cardio: regular rhythm, S1, S2 GI: Abdomen is not distended, soft and non tender, bowel sounds are present Integumentary: No skin lesions or rash Extremities: strength 5/5 to bilateral lower and upper extremities Psych: congruent mood and normal affect Psych Mental Status: mental status grossly normal Speech and Movement: speech and movement normal Mood: congruent mood Affect: normal affect DS: Data Vitals/I&O Vitals and I&O: Vital Signs Temperature 37.0 C 12/17/23 07:25 Temperature Source Temporal Artery Scan 12/17/23 07:25 Pulse 80 12/17/23 07:25 Pulse Rhythm Regular 12/12/23 01:40 Pulse 86 12/12/23 00:31 Respiratory Rate 18 12/17/23 07:25 Respiratory Effort Normal 12/12/23 01:40 Respiratory Depth Normal 12/12/23 01:40 Respiratory Pattern Normal 12/12/23 01:40 Blood Pressure 149/62 H 12/17/23 07:25 Blood Pressure Mean 87 12/12/23 00:31 Blood Pressure Position Sitting 12/11/23 22:07 Pulse Oximetry 98 12/17/23 07:25 Oxygen Delivery Method Room Air 12/17/23 07:25 Oxygen Flow Rate 0 12/17/23 07:25 Pain Level 5 12/17/23 07:25 Comment will tania ABERNATHY 12/15/23 11:06 Intake & Output 12/16/23 12/16/2312/16/24 11:59 23:59 11:59 Intake Total 221 / 665 444 / 665 Output Total 300 / 300 Balance -79 / 365 444 / 365 Intake: IV 0 / 0 Oral 221 / 665 444 / 665 Output: Urine 300 / 300 Other: Urine Color Yellow Yellow Comment pT stated she voided. Patient urinated in the toilet and not in the hat, I could not get a ml reading. Voiding Methods Toilet Toilet Data Completed and Pending Labs on day of discharge: Labs from last 24 hours 12/17/23 05:35 WBC Pending RBC Pending Hgb Pending Hct Pending MCV Pending MCH Pending MCHC Pending RDW Pending Plt Count Pending MPV Pending Immature Gran % Pending Neutrophils % Pending Lymphocytes % Pending Monocytes % Pending Eosinophils % Pending Basophils % Pending Absolute Neutrophils Pending Absolute Lymphocytes Pending Absolute Monocytes Pending Absolute Eosinophils Pending Absolute Basophils Pending Sodium Pending Potassium Pending Chloride Pending Carbon Dioxide Pending Anion Gap Pending BUN Pending Creatinine Pending Est GFR (CKD-EPI 2020) Pending Glucose Pending Calcium Pending Magnesium Pending Preliminary micro results at discharge 12/12/23 10:30 Blood Culture - Preliminary Blood NO GROWTH 96 HOURS 12/12/23 10:40 Blood Culture - Preliminary Blood NO GROWTH 96 HOURS PFSH All Active Problems (Updated 12/17/23 @ 14:26 by Zuleyka Guzman APRN) Palliative care encounter (Acute) Sacroiliac dysfunction (Acute) Anemia (Chronic) Upper respiratory infection (Acute) Falls frequently (Acute) Weakness (Acute) Hyponatremia (Acute) Hyponatremia (Acute) Leukocytosis (leucocytosis) (Acute) Back pain (Acute) Fall (Acute) Spinal stenosis of lumbar region (Chronic) Acute right hip pain (Acute) Sacro ilial pain (Acute) 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 Cantu Osteopenia (Acute) Hyperlipidemia (Acute) Hearing loss (Acute) Sensorineural hearing loss (SNHL) of both ears (Acute) Mixed conductive and sensorineural hearing loss, unilateral, right ear with restricted hearing on the contralateral side (Acute) Sensorineural hearing loss (SNHL) of left ear with restricted hearing of right ear (Acute) Nail dystrophy (Acute) Other hammer toe (acquired) (Acute) Surgical History Hx of tonsillectomy Extraction of cataract Family History Mother , 98 No problems noted. Father , 85 No problems noted. Sister No problems noted. Brother , 80 Heart disease Maternal Grandfather No problems noted. Paternal Grandfather No problems noted. Maternal Grandmother , CHILDBIRTH at age 40. No problems noted. Paternal Grandmother No problems noted. Brother Torticollis Sister Torticollis Son Hyperlipidemia Son No problems noted. Social History Smoking/Tobacco Use Status: Never Smoking risk assessment performed?: Yes Alcohol Intake: never Drug use: Never Substance use type: does not use Adopted: No Caregiver/Support person: No Foster care: No Household members: none Housing: condominium Number of Children: 2 number of grandchildren: 5 Communication Needs: None Education Level: college Do you need help understanding health information?: Rarely current occupation: Retired Pets and animals: No Sexually active: No Do you think of yourself as: straight/heterosexual Current gender identity: female What is your relationship status?: How often do you talk on the phone with friends or family?: three or more times per week How often do you get together with friends or relatives?: three or more times per week How often do you attend faith or tenriism services?: 4 or more times per year Do you belong to any clubs or organized social groups?: no Panel score (0-1 are the most socially isolated patients): 2 What type of physical activity do you participate in: none Duration: decline to answer Frequency: does not exercise Yesenia/Latter Day: Voodoo Special yesenia needs: No Agree to transfusion: Yes Seatbelt use: always Drive intox or ride w/intox assembly line driver: No Working smoke detector in home: Yes Carbon monox detector in home: Yes Firearms in home: No Do you feel safe at home: Yes Do you feel safe in your relationship?: Yes Victim of physical abuse: No Victim of emotional abuse: No Victim of sexual abuse: No Time Spent with Patient Time Spent with Patient: >85 minutes Time was spent: preparing to see the patient(eg.review tests), obtaining and/or reviewing separately otained hiistory, ordering medications,tests, procedures, referring, communicating with other health neurocritical care physician, indepentently interpreting results, counseling the patient and care coordination
--- NOTE | 2023-12-17 10:35 | PDOC.HHF2F ---
Home Health Referral Home Health Orders Clinical synopsis of why skilled professionals are needed: This 88 years old female patient with past medical history of lumbar stenosis bilateral knee replacement, living alone at home presented on 12/11/2023 2 the ED at [facility] status post fall at home after her knees gave out. The patient had multiple episode in the recent week of evaluation in the ED after falling at home. The patient did not appear to have had a syncopal event; no loss of consciousness reported. The patient had been in the ED earlier on 12/31/2023 with similar presentation, the workup in the ED was significant for negative head and neck CT X.-ray ofThe lumbar spine and hip and pelvis showed no acute process. The patient was discharged home with Lidoderm patch and Robaxin and assistance from her neighbors. The patient reported continuing to feel weak once home with difficulty using a walker with subsequent gentle fall to the ground later in the day. Family and friends including her primary care provider were at home and felt that she was not safe at home as she did not have appropriate strength to get up to the commode, ambulate around without assistance or anything else. She was brought back to the emergency department for reassessment. At the time the patient admitted that she has been having lack of strength to get out of the bed and sleeping in her chair. Patient denied saddle anesthesia, numbness or tingling in the groin or change sensation when wiping. He was also denied weakness in the lower extremity, dysuria, shortness of breath or chest pain. CBC showed leukocytosis at 18, H&H at 10.8 and 30.9, UA initially pointing to urinary tract infection and initial treatment initiated with ceftriaxone. Urine cultures showed contamination and ceftriaxone was stopped without any further symptoms and resolution of leukocytosis. Sodium level was found to be 117 with a serum osmolality of 251. The patient was admitted and treated for hyponatremia with resolution. This was most likely linked to the fact that the patient reported not cooking for meals anymore and surviving on TV, toast, soda and water. Moreover the patient urine sodium was 19 which is not correlating to other conditions such as SIADH. The patient experienced episode of agitation at night resolving during daytime. Previous CT scan showed small ischemic vessel disease which could correlate to dementia and delirium in the setting of acute care. There is no possibility to establish a diagnosis of dementia and acute care this will have to be done as outpatient referral. Low-dose Seroquel was initiated with improvement of symptoms. Physical therapy final recommendations are for home health with physical therapy. Palliative care consult was completed by Dr. Falguni Juarez, the patient's skilled nursing PCP, with recommendations for short-term rehab for 2 weeks; upon discussion with care management the patient will not qualify for short-term rehab at this time as per physical therapy recommendation but if outpatient discharge plan was to fail the patient could then go to short-term rehabilitation as per home health aide caregiver. Reportedly, the family has also established a plan to get private home care prior to follows the patient departure for [place]. Discussed with Dr. Begum Medical diagnosis necessitation home health referral: hyponatremia, delirium , s/p multiple falls at home d//t weakness, inadequate food intake Registered Nurse: Check all that apply Instruct on new or changed medication(s)/assess compliance: Ordered Other: On new seroquel dose - assist in compliance Physical Therapist: Check all that apply Increase strength & endurance for safe mobility at home: Ordered To design/establish home maintenance program: Ordered Fall reduction therapy program for patient with history of frequent falls: Ordered Home safety evaluation and teaching/gait training including stair management (if applicable): Ordered Occupational Therapist: Evaluate and treat for patient unable to perform ADL/IADL/self-care: Ordered Upper extremity strengthening, range and motion: Ordered Other: Evaluate capacity to perform ADL's - and assist in improvement Parking Meter Servicer: Assist with community resources: Ordered Assist with local company intermodal truck driver care planning: Ordered Other: assistance with meals and household tasks Home Bound Status Requires the aid of supportive device (check all that apply): Walker Describe why leaving home would require a considerable and taxing effort: Requires frequent rest periods and Safety Concerns: describe Encounter Date and Reason: I certify that a FTF encounter for this patient was performed on December 17, 2023 and that such encounter was related to the primary reason the patient requires home health services. The encounter was conducted in the following manner: By me as the certifying physician, SOLAR SITE ASSESSMENT SPECIALIST, PA or By an inpatient physician, SOLAR SITE ASSESSMENT SPECIALIST or PA during an inpatient stay who communicated findings to me, Certification And Authentication I certify that I composed the above information based on my clinical judgment relating to this patient's medical condition and, if applicable, clinical findings communicated to me by the NPP or inpatient physician who performed the FTF encounter. Name of Provider that will be monitoring home health services: Falguni Juarez
--- NOTE | 2023-12-17 10:42 | W.PALPGNOTE ---
Date of service: 12/17/23 Time of Service: 07:00 Assessment and Plan Assessment and plan (1) Spinal stenosis of lumbar region: Status: Chronic Qualifiers: Neurogenic claudication status: without neurogenic claudication Qualified Code(s): M48.061 - Spinal stenosis, lumbar region without neurogenic claudication (2) Weakness: Status: Acute Assessment and plan: Overall Shannon has improved dramatically since she has been admitted to the hospital she is stronger and more knowledgeable as far as how to move around without endangering falls etc. Both sons seem to want the best for their mom and are very interested in getting her some full-time help for some time. I actually do not think that she will need full-time help very long as she has improved so much hopefully once she is home for some time we can decrease the Seroquel and maybe discontinue it. She is a little nervous about this as she does not want to go backwards. Will give it some time She will be discharged with home health OT etc. Communicated with hospitalist team Subjective Subjective Interval history since last seen: Shannon is still hospitalized. She requires assistance to get out of her chair. She received Seroquel last night and reportedly nurses stated that she did much much better. I was called by her son last evening because of concerns about going home. I am meeting with Shannon and her other son this morning. Her other son states that her financial accounting analyst feels that he can help with home care. He has given her some names and they have not yet made contact. The sons are not able to stay with Shannon, but recognized that she needs home supervision. Shannon understands that she was not clear recently but she feels much better now. Exam Narrative Exam Narrative: Shannon seems to be back to her lucid to self. I did not hear any aberrant remarks such as that she was in her home when she is actually in the hospital. She was very very reasonable and is happy to go to a [facility] or some other place if necessary before she goes home. She does not want to consider moving into a place like [facility] at this point. She really likes her privacy and her time by herself. I did have Shannon get up from the chair by herself using her walker ambulate around the room and then sit down. She did not excellent job with this and was well-controlled. Her pain in her back seemed stable and not debilitated Objective Last Vital Signs Temp 98.6 F 12/17/23 07:25 Pulse 80 12/17/23 07:25 Resp 18 12/17/23 07:25 BP 149/62 H 12/17/23 07:25 Pulse Ox 98 12/17/23 07:25
[2023-12-17 12:25] LABS: BUN 22 mg/dL (7-18); CREATININE 0.7 mg/dL (0.55-1.02); Calcium 9.6 mg/dL (8.5-10.1); Chloride 96 mmol/L (98-107); Estimated GFR 83.13 (mL/min/1.73m2); Glucose 116 mg/dL (74-106); Potassium 4.3 mmol/L (3.5-5.1); Sodium 132 mmol/L (136-145)
--- NOTE | 2023-12-17 13:24 | NUR.NOTE ---
Nursing Note: Pt's son Khris is sure that Dr. Rao wants pt to go to rehab, advised Khris that pt does not meet requirements for rehab per CM. The previous plan was to have HH and the family would contract for private home care. Khris states that the private home care has fallen through. LM for CM that family has questions.
--- NOTE | 2023-12-17 13:50 | PT.INTREAT ---
PT Notes Visit Reasons: Acute hyponatremia with falls and weakness Inpatient Physical Therapy Treatment Note [facility] Date: 12/17/2023 PRECAUTIONS: fall, standard SUBJECTIVE:Nursing reports pt with minimal sleep last night. Pt reporting she did not sleep all night Patient reporting back stiffness as she was transition from supine to sit. OBJECTIVE: Pt approached x 2 in morning however pt unable to arouse. Pt supine in bed snoring. Discussed with nursing who requested not to wake pt until closer to lunch time Pt supine in bed awake when approached prior to lunch. Ppt agreeable to participate prior to her lunch arriving. Pt noted to be incontinent of bladder. ? PAIN: Back right sided patient unable to use scale stating it is just sore Therapeutic Activities (50130): Direct one-on-one instruction in dynamic activities to improve functional performance. ? BED MOBILITY/TRANSFERS? Rolling L/R: Independent Supine-sit: Independent HOB flat with and without railing required increas time on this date? Sit-stand:Supervision with cues proper hand placement ? Stand-sit: Supervision with cues proper hand placement? Provided skilled cues and instruction on performance and technique throughout. ? Ambulation: Ambulate 100 feet x2 with FWW supervised cues for direction due to inability to locate room in an unfamiliar environment. ?Exercises:Supine SKTC BLE 2 x 30 sec, clamshell , TA activation with pelvic tilt x 10 reps ASSESSMENT: Pt demonstrates increase discomfort as noted by facial grimacing during supine to sit. She required cues for hand placement for all transfers . She was able to manage her incontinence Ie complete toilet hygiene and change incontinence products with supervision. Nursing applied bed and chair alarm to surfaces. TREATMENT CODE/TIME: 1st session 33069 x 2 units [id number], DISCHARGE RECOMMENDATION: Home with services ( PT) vs SNF
[2023-12-17] MEDS: Heparin 5,000 UNITS/ML VIAL 5000 UNITS SC ×2 (15:30→15:43)
--- NOTE | 2023-12-17 15:32 | PT.INTREAT ---
PT Notes Visit Reasons: Acute hyponatremia with falls and weakness Inpatient Physical Therapy Treatment Note [facility] Date: 12/17/2023 PRECAUTIONS: fall, standard SUBJECTIVE:Pt reports being frustrated that they changed plans . She is no longer going home she is now going to [facility] for a few days. OBJECTIVE: Pt awake alert seated in her chair with chair alarm on . Her son Khris visiting. Pt initally did not want to participate but with encouragement from her son she agreed to walking. ? PAIN:denies pain Therapeutic Activities (78411): Direct one-on-one instruction in dynamic activities to improve functional performance. ? BED MOBILITY/TRANSFERS? Rolling L/R: Independent Supine-sit: Independent HOB flat with and without railing required increas time on this date? Sit-stand:Supervision withOUT cues proper hand placement ? Stand-sit: Supervision withOUT cues proper hand placement? Provided skilled cues and instruction on performance and technique throughout. ? Ambulation: Ambulate 400feet x1 and 250 feet x 1 with FWW supervision NO cues needed for direction able to locate room on this date. ?Pt requested seated rest in which she performed LAQ, Ankle pumps and marching x 15 reps BLE ASSESSMENT: Pt very clear mentation during this later day session. Pt demonstrates ability to safely maneuver FWW in room and in open spaces without cues. Pt may benefit from rollator/4WW in the future to allow her to transport items. Anticipate pt to be transferred to [facility] in the morning. TREATMENT CODE/TIME: 25135 x 1unit for 13 mins and 54607 x 11 mins for 1 unit/ [id number] DISCHARGE RECOMMENDATION: Home with services (HH PT) vs SNF
--- NOTE | 2023-12-17 15:38 | PDOC.CMPRO ---
Date of service: 12/17/23 Time of Service: 15:39 Care Management Progress Note Progress Note Text Progress Note Text: Shannon was sitting up in her chair when CM met with her. Her son was in the room visiting. Earlier today, the provider discussed discharging Shannon home, as she is medically cleared. She was seen by palliative early this morning, who suggested that she go to SNF for short term rehab to get stronger while her son works on setting up caregivers at home. CM sent referrals to [facility] and the [facility] for review. Shannon stated that she is agreeable to go to rehab for a short period of time, and she would also be happy to go home, if she doesn't get accepted by any facility. She was accepted at the [facility], and will transfer there tomorrow. CM will continue to follow. Discharge Potential Discharge Needs: PCP F/U Appt Anticipated Barriers to Discharge: None Identified Patient/Family Education Needs: Review discharge instructions, discuss Ask Me Three Transportation: Private vehicle Plan: Anticipate Shannon will go to the [facility] tomorrow, and will transport via private vehicle by family. CM sent a referral to [facility] for MOW and to assist with long term care administrator planning, including caregivers at home. She will follow up with her PCP and discharge plan of care. CM will continue to follow. SDOH(Care Management) Screening Will the Patient Participate in the Screening?: Yes Do you worry about having a steady place to live?: no In the past 12 months, have you had to go without electric, gas, oil or water in your home?: no Have you or anyone in your house had to go without enough food to eat?: no Has lack of transportation kept you from medical appointments or from doing things needed for daily living?: no Has anyone in your support network made you feel unsafe for any reason?: no
[2023-12-17] MEDS: Melatonin 3 MG TAB 6 MG PO (18:33)
--- NOTE | 2023-12-17 19:17 | PGE_ITS ---
Date of Service Date of service: 12/17/23 Time of Service: 19:17 Assessment and Plan Assessment and plan (1) Hyponatremia: Status: Acute Assessment and plan: Initial sodium 129 now 132 Will continue fluid restriction 1l/ 24 hours Urine sodium 19- urine osmolality 509 pointing it seems that this was most likely due to poor diet diet related with probable increase water intake. Improve confusion ; as seen on previous CT the patient had small vessel ischemic disease in 2022 without official diagnosis for dementia-trial of Seroquel [id number] to have been effective in reducing the intensity of delirium Consider an outpatient neurology consult Continue Seroquel at bedtime as the patient gets somnolent with a.m. dose. Might benefit from STR on discharge but plan made with family and care management for home health with full services and private caregiver were reversed today for discharge to the [facility] in the morning (2) Fall: Status: Acute Assessment and plan: fall precautions PT consult ongoing and initial recommendation in notes The patient should continue to use walker at all times for gait safety and stability. Qualifiers: Encounter type: subsequent encounter Qualified Code(s): W19.XXXD - Unspecified fall, subsequent encounter (3) Acute right hip pain: Status: Acute Assessment and plan: Pain remains less in control on pain management therapy; imaging was negative for acute fracture on admit Ongoing PT consult and home health PT if discharged home Continue scheduled APAP?effective (4) Spinal stenosis of lumbar region: Status: Chronic Assessment and plan: Ambulating in vera and remaining mobile. PT evaluation for safety and possibly assisted ambulation at home. Consider outpatient MRI if pain worsens Continue lidocaine patch and scheduled acetaminophen Qualifiers: Neurogenic claudication status: without neurogenic claudication Qualified Code(s): M48.061 - Spinal stenosis, lumbar region without neurogenic claudication (5) Palliative care encounter: Status: Acute Assessment and plan: Palliative consult completed by Dr. Juarez; she is also the patient primary care practitioner. Please read notes COLTS form completed on 12/14/2023 Dr. Juarez was in at 7:00 on 12/17/2023 to see the patient. She is still concerned with the plan and would like the patient to be on short-term rehabilitation for at least 2 weeks. CM sent referrals and the patient was accepted to the [facility] in the afternoon. Will be discharged in a.m. discussed with Dr Begum Subjective Subjective Patient reports: feels better, tolerating liquids well, tolerating a regular diet, voiding w/o difficulty, flatus and bowel movement; denies diarrhea, nausea, vomiting, shortness of breath or fever Exam Narrative Exam Narrative: Constitutional Neuro:alert and oriented to self, person, place and time?non- focal Resp:clear lung bilaterally Cardio: regular rhythm, S1, S2 GI: Abdomen is not distended, soft and non tender, bowel sounds are present Extremities: strength 5/5 to bilateral lower and upper extremities Psych: congruent mood and normal affect Objective Last Vital Signs Temp 37.0 C 12/17/23 07:25 Pulse 80 12/17/23 07:25 Resp 18 12/17/23 07:25 BP 149/62 H 12/17/23 07:25 Pulse Ox 98 12/17/23 07:25 Laboratory Results - last 24 hr 12/17/23 06:36 WBC 5.73 RBC 5.58 H Hgb 15.6 D Hct 46.7 H MCV 84 MCH 28.0 MCHC 33.4 RDW 15.0 H Plt Count 104 L MPV 7.6 L Immature Gran % 0.0 Neutrophils % 30.8 Lymphocytes % 63.5 Monocytes % 4.0 Eosinophils % 1.2 Basophils % 0.5 Nucleated RBC % 0.0 Absolute Neutrophils 1.76 Absolute Lymphocytes 3.64 H Absolute Monocytes 0.23 Absolute Eosinophils 0.07 Absolute Basophils 0.03 Sodium 132 L Potassium 4.3 Chloride 96 L Carbon Dioxide 25.0 Anion Gap 11.0 BUN 22 H Creatinine 0.7 Est GFR (CKD-EPI 2020) 83.13 Glucose 116 H Calcium 9.6 Magnesium 2.0 Time Spent with Patient Time Spent with Patient: >50 minutes Time was spent: preparing to see the patient(eg.review tests), obtaining and/or reviewing separately otained hiistory, ordering medications,tests, procedures, referring, communicating with other health home care giver, indepentently interpreting results, counseling the patient and care coordination
[2023-12-17 20:28] VITALS: BP 124/60; PULSE 80; RESP 15; TEMP 37.1; O2SAT 94
[2023-12-17] MEDS: Lidocaine Patch Removal 1 EACH TD (20:31)
[2023-12-18] MEDS: Methocarbamol 500 MG TAB PO (00:03)
[2023-12-18] MEDS: Heparin 5,000 UNITS/ML VIAL 5000 UNITS SC (05:51)
[2023-12-18] MEDS: Lidocaine 5% Patch 1 PATCH TP (07:37)
[2023-12-18] MEDS: Normal Saline Flush 10 ML SYR IVP (07:38)
[2023-12-18] MEDS: Acetaminophen 325 MG TAB 650 MG PO ×2 (07:38→11:06)
[2023-12-18] MEDS: Docusate Sodium 100 MG CAP PO (07:38)
[2023-12-18] MEDS: Multivitamin w/Minerals TAB 1 TAB PO (07:38)
[2023-12-18 07:46] VITALS: BP 125/66; PULSE 87; RESP 15; TEMP 36.8; O2SAT 97
--- NOTE | 2023-12-18 09:38 | DSE_ITS ---
Date of service: 12/18/23 Time of Service: 09:38 DS: Diagnosis Discharge Diagnosis (1) Hyponatremia: (2) Fall: (3) UTI (urinary tract infection): Status: Deleted (4) Acute right hip pain: (5) Spinal stenosis of lumbar region: Status: Chronic (6) Palliative care encounter: Discharge Plan Disposition Patient Disposition: Senior Living Facility(SNF) Condition: Improving Discharge Details Reason For Visit: Acute hyponatremia with falls and weakness Admit Date/Time: 12/12/23 00:33 Admit Provider: Khris Escalona Attending Provider: Khris Escalona Primary Care Provider: [facility] Hospital Course Hospital Course: This 88 years old female patient with past medical history of lumbar stenosis bilateral knee replacement, living alone at home presented on 12/11/2023 2 the ED at [facility] status post fall at home after her knees gave out. The patient had multiple episode in the recent week of evaluation in the ED after falling at home. The patient did not appear to have had a syncopal event; no loss of consciousness reported. The patient had been in the ED earlier on 12/31/2023 with similar presentation, the workup in the ED was significant for negative head and neck CT X.-ray ofThe lumbar spine and hip and pelvis showed no acute process. The patient was discharged home with Lidoderm patch and Robaxin and assistance from her neighbors. The patient reported continuing to feel weak once home with difficulty using a walker with subsequent gentle fall to the ground later in the day. Family and friends including her primary care provider were at home and felt that she was not safe at home as she did not have appropriate strength to get up to the commode, ambulate around without assistance or anything else. She was brought back to the emergency department for reassessment. At the time the patient admitted that she has been having lack of strength to get out of the bed and sleeping in her chair. Patient denied saddle anesthesia, numbness or tingling in the groin or change sensation when wiping. He was also denied weakness in the lower extremity, dysuria, shortness of breath or chest pain. CBC showed leukocytosis at 18, H&H at 10.8 and 30.9, UA initially pointing to urinary tract infection and initial treatment initiated with ceftriaxone. Urine cultures showed contamination and ceftriaxone was stopped without any further symptoms and resolution of leukocytosis. Sodium level was found to be 117 with a serum osmolality of 251. The patient was admitted and treated for hyponatremia with resolution. This was most likely linked to the fact that the patient reported not cooking for meals anymore and surviving on TV, toast, soda and water. Moreover the patient urine sodium was 19 which is not correlating to other conditions such as SIADH. The patient experienced episode of agitation at night resolving during daytime. Previous CT scan showed small ischemic vessel disease which could correlate to dementia and delirium in the setting of acute care. There is no possibility to establish a diagnosis of dementia and acute care this will have to be done as outpatient referral. Low-dose Seroquel was initiated with improvement of symptoms. Physical therapy initial recommendation was was for home health versus short-term rehabilitation. As the patient improved home health with physical therapy was considered. Palliative care consult was completed by Dr. Falguni Juarez, the patient's fdc PCP, with recommendations for short-term rehab for 2 weeks; upon discussion with care management, the family and Dr. Juarez last attempt was made to send referral for the patient to go to short-term rehabilitation facility. The patient was accepted to the [facility] and transfer was agreed upon for 12/18/2019 4 in the morning. Reportedly, the family has also established a plan to get private home care prior to the patient returning home. Discussed with Dr. Begum Home Meds and New Rx's Prescriptions: New acetaminophen 325 mg Tablet 650 mg PO TID Qty: 30 0RF docusate sodium [Colace] 100 mg Capsule 100 mg PO DAILY Qty: 30 0RF quetiapine 25 mg Tablet 12.5 mg PO HS Qty: 15 0RF melatonin 5 mg tablet 5 mg PO HS Qty: 30 0RF Continued Centrum Silver 0.4-300-250 mg-mcg-mcg tablet 1 tab PO DAILY PreserVision AREDS 14,320-226-200 yyta-cz-olht capsule 1 cap PO BID acetaminophen [Tylenol] 325 mg capsule 325 mg PO ONCE PRN methocarbamol 500 mg tablet 500 mg PO TID PRNQty: 10 0RF lidocaine [Lidoderm] 5 % adhesive patch,medicated 1 patch topical DAILY Qty: 15 0RF Rx Instructions: leave on most painful area for up to 12 hrs Held cetirizine-pseudoephedrine [Zyrtec-D] 5-120 mg tablet extended release 12 hr 1 tab PO DAILY PRN Hold Instructions: Resume on 12/31/23. as per PCP Discharge Instructions Activity:: Activity as Tolerated Equipment/Supplies:: Walker Diet:: As Tolerated Discharge Orders Discharge Orders: Discharge Order (Routine); Ordered 12/17/23 Ordered By: Zuleyka Guzman DS: Summary Time Spent with Patient providing and/or coordinating discharge services: Greater than 30 minutes Status at Discharge Functional status at discharge: uses cane/walker Overall status at discharge: patient is progressing back to baseline Mental Status: mental status grossly normal (at baseline) Speech and Movement: speech and movement normal Mood: congruent mood Affect: normal affect Quality:SDOH Health Related Social Needs: No Data to Display Exam Narrative Exam Narrative: Constitutional Neuro:alert and oriented to self, person, place and time?non- focal Resp:clear lung bilaterally Cardio: regular rhythm, S1, S2 GI: Abdomen is not distended, soft and non tender, bowel sounds are present Extremities: strength 5/5 to bilateral lower and upper extremities Psych: congruent mood and normal affect Psych Mental Status: mental status grossly normal (at baseline) Speech and Movement: speech and movement normal Mood: congruent mood Affect: normal affect DS: Data Vitals/I&O Vitals and I&O: Vital Signs Temperature 36.8 C 12/18/23 07:46 Temperature Source Temporal Artery Scan 12/18/23 07:46 Pulse 87 12/18/23 07:46 Pulse Rhythm Regular 12/12/23 01:40 Pulse 86 12/12/23 00:31 Respiratory Rate 15 12/18/23 07:46 Respiratory Effort Normal 12/12/23 01:40 Respiratory Depth Normal 12/12/23 01:40 Respiratory Pattern Normal 12/12/23 01:40 Blood Pressure 125/66 12/18/23 07:46 Blood Pressure Mean 87 12/12/23 00:31 Blood Pressure Position Sitting 12/11/23 22:07 Pulse Oximetry 97 12/18/23 07:46 Oxygen Delivery Method Room Air 12/18/23 07:46 Oxygen Flow Rate 0 12/18/23 07:46 Pain Level 0 12/18/23 07:46 Comment will tania ABERNATHY 12/15/23 11:06 Intake & Output 12/17/23 12/17/23 12/18/23 11:59 23:59 11:59 Intake Total 240 / 940 700 / 940 Balance 240 / 940 700 / 940 Intake: IV Oral 220 / 910 690 / 910 Other: Urine Color Yellow Yellow Yellow Urine Appearance Clear Urine Odor Normal Comment Patient urinated in the toilet and not in the hat, I could not get a ml reading. Patient said she urinated, she had flushed the toilet before I could look. Patient states the color of her urine was yellow. voided in toilet Stool Size Large Small Stool Characteristics Formed Formed Hard Voiding Methods Toilet Toilet Toilet Data Completed and Pending Labs on day of discharge: Labs from last 24 hours 12/17/23 06:36 WBC 5.73 RBC 5.58 H Hgb 15.6 D Hct 46.7 H MCV 84 MCH 28.0 MCHC 33.4 RDW 15.0 H Plt Count 104 L MPV 7.6 L Immature Gran % 0.0 Neutrophils % 30.8 Lymphocytes % 63.5 Monocytes % 4.0 Eosinophils % 1.2 Basophils % 0.5 Nucleated RBC % 0.0 Absolute Neutrophils 1.76 Absolute Lymphocytes 3.64 H Absolute Monocytes 0.23 Absolute Eosinophils 0.07 Absolute Basophils 0.03 Sodium 132 L Potassium 4.3 Chloride 96 L Carbon Dioxide 25.0 Anion Gap 11.0 BUN 22 H Creatinine 0.7 Est GFR (CKD-EPI 2020) 83.13 Glucose 116 H Calcium 9.6 Magnesium 2.0 PFSH All Active Problems (Updated 12/18/23 @ 00:05 by AZAR YANG) Anemia (Chronic) Upper respiratory infection (Acute) Falls frequently (Acute) Weakness (Acute) Hyponatremia (Acute) Spinal stenosis of lumbar region (Chronic) 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 Cantu Osteopenia (Acute) Hyperlipidemia (Acute) Hearing loss (Acute) Sensorineural hearing loss (SNHL) of both ears (Acute) Mixed conductive and sensorineural hearing loss, unilateral, right ear with restricted hearing on the contralateral side (Acute) Sensorineural hearing loss (SNHL) of left ear with restricted hearing of right ear (Acute) Nail dystrophy (Acute) Other hammer toe (acquired) (Acute) Medical History (Updated 12/18/23 @ 00:05 by AZAR YANG) Palliative care encounter Sacroiliac dysfunction Back pain Fall Acute right hip pain Sacro ilial pain Hyponatremia Surgical History Hx of tonsillectomy Extraction of cataract Family History Mother , 98 No problems noted. Father , 85 No problems noted. Sister No problems noted. Brother , 80 Heart disease Maternal Grandfather No problems noted. Paternal Grandfather No problems noted. Maternal Grandmother , CHILDBIRTH at age 40. No problems noted. Paternal Grandmother No problems noted. Brother Torticollis Sister Torticollis Son Hyperlipidemia Son No problems noted. Social History Smoking/Tobacco Use Status: Never Smoking risk assessment performed?: Yes Alcohol Intake: never Drug use: Never Substance use type: does not use Adopted: No Caregiver/Support person: No Foster care: No Household members: none Housing: condominium Number of Children: 2 number of grandchildren: 5 Communication Needs: None Education Level: college Do you need help understanding health information?: Rarely current occupation: Retired Pets and animals: No Sexually active: No Do you think of yourself as: straight/heterosexual Current gender identity: female What is your relationship status?: How often do you talk on the phone with friends or family?: three or more times per week How often do you get together with friends or relatives?: three or more times per week How often do you attend religious or druze services?: 4 or more times per year Do you belong to any clubs or organized social groups?: no Panel score (0-1 are the most socially isolated patients): 2 What type of physical activity do you participate in: none Duration: decline to answer Frequency: does not exercise Yesenia/Restoration: Caodaism Special yesenia needs: No Agree to transfusion: Yes Seatbelt use: always Drive intox or ride w/intox taxicab driver: No Working smoke detector in home: Yes Carbon monox detector in home: Yes Firearms in home: No Do you feel safe at home: Yes Do you feel safe in your relationship?: Yes Victim of physical abuse: No Victim of emotional abuse: No Victim of sexual abuse: No Time Spent with Patient Time Spent with Patient: 45-69 minutes Time was spent: preparing to see the patient(eg.review tests), ordering medications,tests, procedures, referring, communicating with other health live in caregiver, indepentently interpreting results, counseling the patient and care coordination
--- NOTE | 2023-12-18 09:39 | PDOC.CMDIS ---
Date of service: 12/18/23 Time of Service: 09:39 LACE Index Scoring Tool Questions: Length of Stay (in days): 4 - 6 Was the patient admitted via the E.D.?: Yes E.D. Visits: 2 Answers: Total Score: 9 Risk of Readmission: Low Risk Care Management Discharge Plan Reason for Hospitalization: Acute hyponatremia with falls, weakness Discharge Plan: Shannon will go to the [facility] today for short term rehab prior to returning home. She will transport by [facility] via private vehicle, coordinated by CM. She will follow up with her PCP and discharge plan of care. She is agreeable to be going to rehab, and is looking forward to being home. Patient/Family Education Needs: Review discharge instructions and limitations, discussion of self care needs including ask me three. Services Needed at Discharge: Assisted Facility ([facility]) and Transportation ([facility] private vehicle) SDOH Health Related Social Needs: No Data to Display
--- NOTE | 2023-12-18 10:15 | NUR.NOTE ---
Nursing Note: 1015: Report Given to Nurse Poole at the [facility] in [place]. All quetions answered.
--- NOTE | 2023-12-18 11:22 | PTTR_ITS ---
PT Notes Visit Reasons: Acute hyponatremia with falls and weakness Inpatient Physical Therapy Treatment Note [facility] Date: 12/18/2023 PRECAUTIONS: fall, standard SUBJECTIVE:Pt stating she is going to [facility] today for 2 weeks. She states she is comfortable about going there and understands why. OBJECTIVE: Pt awake alert smiling visiting with her sons. She is agreeable to participate ? PAIN:denies pain Therapeutic Activities (57287): Direct one-on-one instruction in dynamic activities to improve functional performance. ? BED MOBILITY/TRANSFERS? Rolling L/R: Independent Supine-sit: Independent HOB flat with and without railing required increas time on this date? Sit-stand:Supervision withOUT cues proper hand placement ? Stand-sit: Supervision withOUT cues proper hand placement? Provided skilled cues and instruction on performance and technique throughout. ? Ambulation: Ambulate 400feet x1 with FWW supervision NO cues needed for direction able to locate room on this date. ?Functional mobility with FWW within room to simulate mobility at home for item retrieval Discussed with family potential of a rollator/4WW for future ambulation to allow her to transport items with increase ease. ASSESSMENT: Pt with clear mentation Pt demonstrates ability to safely maneuver FWW in room and in open spaces without cues. Pt may benefit from rollator/4WW in the future to allow her to transport items. Anticipate pt to be transferred to [facility] TREATMENT CODE/TIME: 47260 x 1unit for 14 mins [id number]
== END 2023-12-18 12:54 | disposition skilled nursing facility (03) | DRG 641 ==
LOC: ER 12-12 01:08 → MS 12-12 01:31
PROVIDERS: Nurse Practitioner Acute Care; Admitting Provider Family Medicine; Emergency Provider Student in an Organized Health Care Education/Training Program; PCP Family Medicine; Visit Provider Family Medicine
DX: E87.1 Hypo-osmolality and hyponatremia (principal); N30.01 Acute cystitis with hematuria; J06.9 Acute upper respiratory infection, unspecified; W19.XXXA Unspecified fall, initial encounter; D72.828 Other elevated white blood cell count; M25.551 Pain in right hip; M48.061 Spinal stenosis, lumbar region without neurogenic claudication; D64.9 Anemia, unspecified; M53.3 Sacrococcygeal disorders, not elsewhere classified; R53.1 Weakness; R29.6 Repeated falls; Z96.653 Presence of artificial knee joint, bilateral; H90.3 Sensorineural hearing loss, bilateral; M85.80 Other specified disorders of bone density and structure, unspecified site; E78.5 Hyperlipidemia, unspecified; R35.0 Frequency of micturition; Z66 Do not resuscitate
CPT/HCPCS: 00123; 36415; 73521; 80048; 80053; 82550; 82805; 83935; 85027; 87040; 87637; 93005; 96360; 97110; 97116; 97161; 97530; 99285; 99291; 70450; 71045; 72100; 72125; 73502; 81003; 82436; 83735; 83930; 84133; 84300; 84443; 84484; 85025; 87086; 93010; 99223; 99233; 99239; 99284; J0696; J1644; J3475; J3490

== ENCOUNTER 2023-12-21 19:14 | Outpatient (REF) | payer MEDICARE, SELFPAY ==
[2023-12-21 19:51] LABS: HCT 30.4 % (36.0-46.0); HGB 10.4 g/dL (11.2-15.7); MCH 28.2 pg (27.0-33.0); MCHC 34.2 % (32.0-36.0); MCV 82 fL (80-95); MPV 8.1 fL (8.0-11.0); Platelet Count 202 10^3/uL (130-400); RBC 3.69 10^6/uL (3.93-5.22); RDW 14.5 % (11.7-14.6); WBC 11.29 10^3/uL (4.4-10.8)
[2023-12-21 20:22] LABS: Iron 28 ug/dL (50-170); Total Iron Binding Capacity 272 ug/dL (250-450); Transferrin Sat 10 % (15-50)
[2023-12-21 20:27] LABS: Hemoglobin A1C 5.6 % (<5.7)
[2023-12-21 20:28] LABS: Absolute Lymphocyte Count 8.13 10^3/uL (1.2-3.4); Absolute Monocyte Count 0.34 10^3/uL (0.1-0.8); Absolute Neutrophil Count 2.82 10^3/uL (1.2-6.7); Atypical Lymphocytes % 4 %
[2023-12-21 20:29] LABS: Diff Comment Manual Differential; RBC Morphology Normal
[2023-12-21 20:47] LABS: ALT 19 U/L (14-59); AST 14 U/L (15-37); Albumin 3.5 g/dL (3.4-5.0); Alkaline Phosphatase 131 U/L (46-116); BUN 24 mg/dL (7-18); Bilirubin, Total 0.45 mg/dL (0.2-1.0); CO2 25.4 mmol/L (21.0-32.0); CREATININE 0.8 mg/dL (0.55-1.02); Calcium 9.6 mg/dL (8.5-10.1); Chloride 88 mmol/L (98-107); Estimated GFR 70.83 (mL/min/1.73m2); Ferritin 124 ng/mL (8-252); Glucose 122 mg/dL (74-106); Magnesium 2.2 mg/dL (1.8-2.4); Potassium 4.5 mmol/L (3.5-5.1); TSH (W/Ref FT4) 3.23 uIU/mL (0.36-3.74); Total Protein 7.8 g/dL (6.4-8.2); Vitamin B12 955 pg/mL (193-986); Vitamin D 25 Total 51.3 ng/mL (30-100)
[2023-12-21 20:48] LABS: Anion Gap 11.6 mmol/L (3-11); Sodium 125 mmol/L (136-145)
[2023-12-21 21:11] LABS: NT-proBNP 726 pg/mL (<300)
== END 2023-12-21 19:15 | disposition home or self-care (01) ==
LOC: LBN 19:14
PROVIDERS: PCP Family Medicine; Visit Provider Nurse Practitioner Gerontology
DX: R73.09 Other abnormal glucose; R53.81 Other malaise; E83.42 Hypomagnesemia; I11.0 Hypertensive heart disease with heart failure
CPT/HCPCS: 80053; 82306; 82607; 82728; 82746; 83036; 83540; 83550; 83735; 83880; 84443; 85025

== ENCOUNTER 2023-12-25 12:20 | Outpatient (REF) | payer MEDICARE, SELFPAY ==
[2023-12-25 12:53] LABS: ALT 19 U/L (14-59); AST 13 U/L (15-37); Albumin 3.4 g/dL (3.4-5.0); Alkaline Phosphatase 122 U/L (46-116); Anion Gap 10.2 mmol/L (3-11); BUN 22 mg/dL (7-18); Bilirubin, Total 0.41 mg/dL (0.2-1.0); CO2 25.8 mmol/L (21.0-32.0); CREATININE 0.8 mg/dL (0.55-1.02); Calcium 9.6 mg/dL (8.5-10.1); Chloride 89 mmol/L (98-107); Estimated GFR 70.83 (mL/min/1.73m2); Glucose 113 mg/dL (74-106); Potassium 4.8 mmol/L (3.5-5.1); Sodium 125 mmol/L (136-145); Total Protein 7.6 g/dL (6.4-8.2)
== END 2023-12-25 12:21 | disposition home or self-care (01) ==
LOC: LBN 12:20
PROVIDERS: PCP Family Medicine; Visit Provider Family Medicine
DX: E87.1 Hypo-osmolality and hyponatremia (principal)
CPT/HCPCS: 80053

== ENCOUNTER 2023-12-28 16:36 | Outpatient (REF) | payer MEDICARE, SELFPAY ==
[2023-12-28 14:12] LABS: ALT 18 U/L (14-59); AST 13 U/L (15-37); Albumin 3.3 g/dL (3.4-5.0); Alkaline Phosphatase 120 U/L (46-116); BUN 26 mg/dL (7-18); CREATININE 0.8 mg/dL (0.55-1.02); Calcium 9.3 mg/dL (8.5-10.1); Chloride 95 mmol/L (98-107); Estimated GFR 70.83 (mL/min/1.73m2); Glucose 104 mg/dL (74-106); Potassium 4.9 mmol/L (3.5-5.1); Sodium 131 mmol/L (136-145); Total Protein 7.2 g/dL (6.4-8.2)
== END 2023-12-28 16:37 | disposition home or self-care (01) ==
LOC: LBN 16:36
PROVIDERS: PCP Family Medicine; Visit Provider Nurse Practitioner Gerontology
DX: E87.1 Hypo-osmolality and hyponatremia (principal)
CPT/HCPCS: 80053

== ENCOUNTER 2023-12-31 01:38 | Outpatient (CLI) | payer MEDICARE, SELFPAY ==
--- NOTE | 2023-12-31 08:00 | DI.RAD_ITS ---
Exam(s) XR HIP RT COMPLETE AP PELVIS EXAM: XR HIP RT COMPLETE AP PELVIS CLINICAL HISTORY: right hip and leg pain,acute,m25.551. TECHNIQUE: 2D digital imaging was performed of the right hip. Two images were obtained. AP pelvis a nd lateral right hip views were obtained. COMPARISON: CR,XR XR HIP RT COMPLETE AP PELVIS from 12/11/2023 FINDINGS: BONES: No acute fracture is present. No bony destructive lesion is seen. JOINTS: No dislocation present. There is mild joint space narrowing of the hips bilaterally. The sac roiliac joints show mild degenerative changes. The symphysis pubis is unremarkable. SOFT TISSUE: Atherosclerotic calcification is seen. IMPRESSION: Mild joint space narrowing of the hips bilaterally. DATA REPOSITORY: RADIATION DOSE DELIVERED:
== END 2023-12-31 01:58 ==
LOC: DI 01:38
PROVIDERS: PCP Family Medicine; Visit Provider Family Medicine
DX: M16.0 Bilateral primary osteoarthritis of hip (principal)
CPT/HCPCS: 73502

== ENCOUNTER 2023-12-31 21:02 | Outpatient (REF) | payer MEDICARE, SELFPAY ==
[2023-12-31 20:01] LABS: Anion Gap 10.2 mmol/L (3-11); BUN 23 mg/dL (7-18); CO2 26.8 mmol/L (21.0-32.0); CREATININE 0.8 mg/dL (0.55-1.02); Calcium 9.8 mg/dL (8.5-10.1); Chloride 94 mmol/L (98-107); Estimated GFR 70.83 (mL/min/1.73m2); Glucose 134 mg/dL (74-106); Potassium 4.1 mmol/L (3.5-5.1); Sodium 131 mmol/L (136-145)
== END 2023-12-31 21:03 | disposition home or self-care (01) ==
LOC: LBN 21:02
PROVIDERS: PCP Family Medicine; Visit Provider Family Medicine
DX: M25.551 Pain in right hip (principal)
CPT/HCPCS: 80048

== ENCOUNTER 2024-01-10 09:18 | Outpatient (REF) | payer MEDICARE, SELFPAY ==
[2024-01-10 10:37] LABS: HCT 29.8 % (36.0-46.0); HGB 9.9 g/dL (11.2-15.7); MCH 28.8 pg (27.0-33.0); MCHC 33.2 % (32.0-36.0); MCV 87 fL (80-95); Platelet Count 173 10^3/uL (130-400); RBC 3.44 10^6/uL (3.93-5.22); RDW 15.5 % (11.7-14.6); RDW-SD 48.5 fL; WBC 7.92 10^3/uL (4.4-10.8)
[2024-01-10 10:49] LABS: ALT 19 U/L (14-59); AST 14 U/L (15-37); Albumin 3.1 g/dL (3.4-5.0); Alkaline Phosphatase 121 U/L (46-116); Anion Gap 9.3 mmol/L (3-11); BUN 17 mg/dL (7-18); Bilirubin, Total 0.39 mg/dL (0.2-1.0); CO2 27.7 mmol/L (21.0-32.0); CREATININE 0.7 mg/dL (0.55-1.02); Calcium 9.2 mg/dL (8.5-10.1); Chloride 98 mmol/L (98-107); Estimated GFR 83.13 (mL/min/1.73m2); Glucose 127 mg/dL (74-106); Potassium 3.9 mmol/L (3.5-5.1); Sodium 135 mmol/L (136-145); Total Protein 7.3 g/dL (6.4-8.2)
== END 2024-01-10 09:19 | disposition home or self-care (01) ==
LOC: LBN 09:18
PROVIDERS: PCP Family Medicine; Visit Provider Family Medicine
DX: E87.1 Hypo-osmolality and hyponatremia (principal); D64.9 Anemia, unspecified; Z23 Encounter for immunization; M48.061 Spinal stenosis, lumbar region without neurogenic claudication
CPT/HCPCS: 80053; 85027

== ENCOUNTER 2024-04-21 10:50 | Outpatient (CLI) | payer MEDICARE, SELFPAY ==
[2024-04-21 12:31] LABS: Anion Gap 8.3 mmol/L (3-11); BUN 15 mg/dL (7-18); CO2 27.7 mmol/L (21.0-32.0); CREATININE 0.8 mg/dL (0.55-1.02); Calcium 9.7 mg/dL (8.5-10.1); Chloride 97 mmol/L (98-107); Estimated GFR 70.83 (mL/min/1.73m2); Glucose 99 mg/dL (74-106); Potassium 4.2 mmol/L (3.5-5.1); Sodium 133 mmol/L (136-145)
== END 2024-04-21 10:51 | disposition home or self-care (01) ==
PROVIDERS: PCP Family Medicine; Referring Provider Family Medicine; Visit Provider Family Medicine
DX: E87.1 Hypo-osmolality and hyponatremia (principal)
CPT/HCPCS: 36415; 80048